=== PATIENT | female | born 1965 | race Caucasian/White ===

== ENCOUNTER → 2019-09-19 11:31 | Outpatient (BNVA) | payer MEDICAID, SELFPAY | PROVIDERS: Referring Provider Nurse Practitioner Family; Visit Provider Orthopaedic Surgery | DX: M19.012 Primary osteoarthritis, left shoulder (principal); M25.519 Pain in unspecified shoulder | CPT/HCPCS: 73030 ==

== ENCOUNTER 2019-10-25 11:12 | Outpatient (CLI) | payer MEDICAID, SELFPAY ==
--- NOTE | 2019-10-25 11:18 | MM_ITS ---
WS: [id number] BILATERAL DIGITAL SCREENING MAMMOGRAPHY WITH CAD CLINICAL INFORMATION: SCREENING HISTORY: Screening mammogram. No current complaints. COMPARISON: None. TECHNIQUE: Bilateral CC and MLO views. FINDINGS: Scattered fibroglandular densities bilaterally. No suspicious focal mass, asymmetry, calcifications, or architectural distortion. No evidence of malignancy. MM/[place] [id number] IMPRESSION: BI-RADS: 1-Negative FOLLOW UP: 1 Year Follow-up Recommend return to annual screening mammography.
== END 2019-10-25 11:13 | disposition home or self-care (01) ==
LOC: RADSHAW 11:17
PROVIDERS: PCP Nurse Practitioner Family; Visit Provider Nurse Practitioner Family
DX: Z12.31 Encounter for screening mammogram for malignant neoplasm of breast (principal)
CPT/HCPCS: 77067

== ENCOUNTER 2021-04-10 08:41 | Inpatient (IN) | payer MEDICAID, SELFPAY ==
[2021-04-10] VITALS (46 sets, daily range): BP systolic 109–156; BP diastolic 63–112; PULSE 84–111; RESP 6–42; TEMP 36.4–36.9; O2SAT 88–100; BMI 21.4
--- NOTE | 2021-04-10 08:48 | ECG_ITS ---
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1965 Requested By: Jersey Graff Order Number: [id number] Reading MD: MAUREEN MARION Measurements Intervals [place] Rate: 94 P: 60 VA: 149 QRS: -61 QRSD: 117 T: 88 QT: 388 QTc: 487 Interpretive Statements SINUS RHYTHM INCOMPLETE RIGHT BUNDLE BRANCH BLOCK [90+ ms QRS DURATION, TERMINAL R IN V1/V2, 40+ ms S IN I/aVL/V4/V5/V6] LEFT ANTERIOR FASCICULAR BLOCK [QRS AXIS <= -45, QR IN I, RS IN II] ANTEROLATERAL MYOCARDIAL INFARCTION , PROBABLY RECENT [40+ ms Q WAVE IN I/aVL/V3-V6] ACUTE ME Compared to ECG 04/10/2021 08:46:03 Sinus tachycardia no longer present Myocardial infarct finding still present Electronically Signed On 04-10-2021 19:54:56 ROOFER HELPER VINYL COATING by MAUREEN MARION [id number]
--- NOTE | 2021-04-10 08:48 | XR_ITS ---
WS: [id number] XR chest 1V portable [id number] REASON FOR EXAM: chest pain FINDINGS: Moderate tortuosity of the thoracic aorta. Heart is not significantly enlarged. Coarse reticular interstitial changes in both lower lung morley with mild accentuation of the minor f issure. Mild changes of degenerative spondylosis in the mid and lower thoracic spine. XR/XR chest 1V portable [id number] IMPRESSION: Interstitial changes in the lower lung morley. Unknown chronicity. Most compati ble with pulmonary edema.
[2021-04-10] MEDS: nitroglycerin drip 50 MG/250 ML PREMIX IV (08:53)
[2021-04-10] MEDS: sodium chloride 0.9% 1,000 ML 999 ML IV (08:55)
[2021-04-10] MEDS: clopidogrel 300 mg Tablet 600 MG PO (08:55)
[2021-04-10] MEDS: fentaNYL 50 mcg/mL INJ 2mL IVP (08:56)
[2021-04-10] MEDS: heparin 5,000 unit/mL INJ 1 mL 4000 UNIT IVP (08:56)
[2021-04-10] MEDS: ondansetron 2 mg/ML SDV 2 mL 4 MG IVP (08:56)
[2021-04-10 08:59] LABS: Basophils % 0.2 %; Hematocrit 45.5 % (37.0-47.0); Hemoglobin 14.9 g/dL (11.5-15.3); Lymphocytes # 1.4 10^3/uL (0.8-4.8); Lymphocytes % 12.1 %; Mean Corpuscular HGB Conc 32.7 g/dL (30.0-36.0); Mean Corpuscular Hemoglobin 30.9 pg (28.0-34.0); Mean Corpuscular Volume 94.4 fl (81-99); Mean Platelet Volume 10.3 fL (7.4-10.4); Monocytes # 0.6 10^3/uL (0.2-0.9); Monocytes % 5.1 %; Neutrophils # 9.53 10^3/uL (1.8-7.7); Neutrophils % 82.3 %; Nucleated Red Blood Cells % 0 %; Platelet Count 272 10^3/cmm (130-400); Red Blood Count 4.82 10^6/uL (4.1-5.3); Red Cell Distribution Width 12.4 % (12.1-15.1); White Blood Count 11.6 10^3/uL (4.0-10.0)
[2021-04-10] MEDS: nitroglycerin drip 50 MG/250 ML PREMIX 6 MG IV (09:02)
[2021-04-10] MEDS: metoprolol tartrate 1 mg/1 mL SDV 5 mL 5 MG IVP (09:02)
[2021-04-10 09:10] LABS: Alanine Aminotransferase 52 U/L (0-33); Albumin Level 4.3 g/dL (3.5-5.2); Alkaline Phosphatase 90 IU/L (35-105); Anion Gap 22.6 (5-19); Aspartate Amino Transferase 317 U/L (0-32); Blood Urea Nitrogen 18 mg/dL (6-20); Calcium 9.4 mg/dL (8.5-10.5); Carbon Dioxide 23 mmol/L (22-29); Chloride 99 mmol/L (98-107); Globulin 2.7 g/dL (1.3-4.6); Glomerular Filtration Rate 73.9 mL/min (90-130); Glucose 128 mg/dL (65-115); Osmolality Calculated 294 mOsm/kg (285-295); Potassium 4.6 mmol/L (3.5-5.1); Sodium 140 mmol/L (136-145); Total Bilirubin 0.3 mg/dL (0.15-1.2)
--- NOTE | 2021-04-10 09:14 | XACV_ITS ---
Ht: 163 cm Wt: 57 kg BSA: 1.60 m2 Gender: Female : 1965 Any Known Allergies: Morphine Exam Priority: Routine Procedure(s): Procedure Description: Diagnostic procedure Procedure Description: PCI procedure Procedure Description: Left Heart Catheterization Procedure Description: Drug Eluting Coronary Stent Procedure Description: PTCA Slim GOULD; Diagnostic Findings * Left Main has no disease. * Circumflex has no disease. * Proximal Left Anterior Descending: total occlusion, SASHA: 0 flow. * Proximal Left Anterior Descending: total occlusion, SASHA: 0 flow. * Mid Left Anterior Descending: mild 40% stenosis, SASHA: 0 flow. * Mid Right Coronary Artery: obstructive 60% stenosis, SASHA: 3 flow. * Coronary angiography shows right dominance. Interventional Findings * Proximal Left Anterior Descendin% stenosis treated with a AB MINI TREK 2.00X12 RX BALLOON, MDT NC EUPHORA RX [id number] BALLOON, MDT R RICKY 3.0X12 NADEEN, and MDT NC EUPHORA RX [id number] BALLOON. 0% residual stenosis, SASHA: 3 flow. * Proximal Left Anterior Descendin% stenosis treated with a MDT R RICKY 3.0X22 NADEEN. 0% residual stenosis, SASHA: 3 flow. * Mid Left Anterior Descendin% stenosis treated with a AB MINI TREK 2.00X12 RX BALLOON. 0% residual stenosis, SASHA: 3 flow. Conclusions 1. 55-year-old male presented with ST elevation UT with anterior wall. Thrombotically occluded proximal LAD was noted. It was treated with balloon angioplasty/ drug-eluting stent. After placement of proximal stent thrombus was noted to be traveling backward towards left main and circumflex. It was trapped with placement of overlapping stent in the ostial LAD into proximal LAD. Stent was postdilated with noncompliant balloon. Excellent angiographic result was achieved no residual thrombus or plaque was noted.. 2. There is total occlusion coronary artery disease with two vessel disease. 3. Proximal Left Anterior Descending was treated with a Balloon, Balloon, Drug Eluting Stent, and Balloon. 4. Proximal Left Anterior Descending was treated with a Drug Eluting Stent. 5. Mid Left Anterior Descending was treated with a Balloon. Recommendations * 1-Return to inpatient for close monitoring and routine cath care2-Risk factor modification for secondary prevention3-Statin and aspirin 81 mg life--long, if tolerated4-Continue DAPT for one year at least5-Continue optimal medical management6-Follow up with Dr. Smalls in four weeks and your primary care in 10 days. Interventional RX Recommendation: PCI w/o planned CABG Diagnostic RX Recommendation: PCI w/o planned CABG Clinical Evaluation EBL: 5mL-10mL Procedural Details Pre-Procedure Time Out. Identified patient by full name and date of as verbalized by the patient/guarantor. Does the consent match the physician's order: Yes. Accurate & Complete Informed Consent: N/A Emergent. Inpatient/Outpatient History & Physical on Chart: N/A Emergent. If H&P is completed, is and addenduem needed: N/A Emergent; If yes, is the addendum complete: N/A Emergent. Visualize and Verify Site with Patient/Guarantor: N/A. Relevant Radiology Images available: N/A Emergent. Pre-op teaching completed and patient verbalized understanding. The risks, benefits, and alternatives of sedation and/or procedure were discussed by physician. The patient agrees to continue. Procedure started. Correct patient, site and procedure confirmed by cath team. PERRLA. Strong, equal hand dumper bilaterally. Lungs clear x 5 lobes. IV Site on Arrival: 18 gauge in the right forearm. IV Site on Arrival: 20 gauge in the left anticubital. Oxygen started at 2liters/min via nasal canula. bilateral groins was prepped with chloroprep then draped in the usual sterile fashion. right radial was prepped with chloroprep then draped in the usual sterile fashion. Baseline sample Acquired. HR: 80 BPM. Physician notified. Physician arrived. Physician scrubbed in. Immediate Pre-Procedure Time Out. Correct Patient: Yes; Correct Procedure: Yes; Correct Site: Yes; Correct Patient Position: Yes; Correct Supplies: Yes; Dried Flammable Prep: Yes; Blood Products Available: N/A;. Lidocaine 1% infiltrated to the right radial. Pre Procedural Pulses: bilateral radial was 1+. Pre Procedural Pulses: bilateral dorsalis pedis was Doppled. Pre Procedural Pulses: bilateral posterior tibial was Doppled. Admit Source: Emergency department. Unable to obtain radial access. MD attempting to gain access in the Femoral artery. Arterial access obtained with micropuncture set. A 5 indonesian JL4 catheter in over wire. TR band placed. Hemostasis obtained. Multiple views taken of left coronary artery. Catheter out. 6 indonesian XB 3 guide catheter was inserted over the wire. Runthrough guidewire was advanced through the guide catheter to lesion in the prox LAD. Inflation number : 1 A AB MINI TREK 2.00X12 RX BALLOON was prepped and advanced across the Prox LAD , then inflated to 12 ALLISON for 0:09 seconds. Inflation number: 2 The AB MINI TREK 2.00X12 RX BALLOON was reinflated across the Prox LAD, to 20 ALLISON for 0:16 seconds. Inflation number: 3 The AB MINI TREK 2.00X12 RX BALLOON was reinflated across the Prox LAD, to 20 ALLISON for 0:11 seconds. Inflation number: 4 The AB MINI TREK 2.00X12 RX BALLOON was reinflated across the Prox LAD, to 20 ALLISON for 0:18 seconds. Inflation number: 1 The AB MINI TREK 2.00X12 RX BALLOON was reinflated across the Mid LAD, to 6 ALLISON for 0:14 seconds. Inflation number: 2 The AB MINI TREK 2.00X12 RX BALLOON was reinflated across the Mid LAD, to 6 ALLISON for 0:10 seconds. Inflation number: 3 The AB MINI TREK 2.00X12 RX BALLOON was reinflated across the Mid LAD, to 6 ALLISON for 0:09 seconds. Inflation number: 4 The AB MINI TREK 2.00X12 RX BALLOON was reinflated across the Mid LAD, to 12 ALLISON for 0:17 seconds. Inflation number: 5 The AB MINI TREK 2.00X12 RX BALLOON was reinflated across the Mid LAD, to 8 ALLISON for 0:13 seconds. Inflation number: 6 The AB MINI TREK 2.00X12 RX BALLOON was reinflated across the Mid LAD, to 4 ALLISON for 0:08 seconds. Inflation number: 7 The AB MINI TREK 2.00X12 RX BALLOON was reinflated across the Mid LAD, to 4 ALLISON for 0:07 seconds. Inflation number: 8 The AB MINI TREK 2.00X12 RX BALLOON was reinflated across the Mid LAD, to 6 ALLISON for 0:10 seconds. Inflation number: 9 The AB MINI TREK 2.00X12 RX BALLOON was reinflated across the Mid LAD, to 12 ALLISON for 0:19 seconds. Balloon out. Inflation Number : 1 A MDT R RICKY 3.0X22 NADEEN -Lot Number# [id number] exp date: 08-21-2023 was prepped and advanced across the Prox LAD1. The stent was deployed at 12 ALLISON for 0:24 seconds. family updated by Negrita Daniel RN. Inflation number : 5 A MDT NC EUPHORA RX 3.90V34BU BALLOON was prepped and advanced across the Prox LAD , then inflated to 12 ALLISON for 0:30 seconds. Inflation number: 6 The MDT NC EUPHORA RX 3.60D25HC BALLOON was reinflated across the Prox LAD, to 16 ALLISON for 0:15 seconds. Balloon out. IVUS catheter inserted. measurements obtained. IVUS catheter out. Inflation Number : 7 A MDT R RICKY 3.0X12 NADEEN -Lot Number# [id number] exp date: 03-17-2023 was prepped and advanced across the Prox LAD. The stent was deployed at 16 ALLISON for 0:20 seconds. Stent balloon out over wire. Balloon out. Wire out. ACT drawn. Results 188 seconds. Therapeutic limits - pre-heparin administration 90-150 seconds and monitoring heparin during a vascular procedure >250 seconds. reseating the guide. guide out. 6 indonesian JL 4 guide catheter was inserted over the wire. Runthrough guidewire was advanced through the guide catheter to lesion in the prox LAD. Inflation number : 8 A MDT NC EUPHORA RX 3.05X78NQ BALLOON was prepped and advanced across the Prox LAD , then inflated to 12 ALLISON for 0:12 seconds. Results checked. Balloon out. Wire out. 6 indonesian JR 4 guide catheter was inserted over the wire. Multiple views taken of right coronary artery. catheter out. Wire out. Sheath(s) sutured into position with 2-0 silk and sterile 4x4's and Op-site applied over the site. No oozing or signs and symptoms of hematoma noted. Arterial sheath flushed and connected to tranducer and pressure bag with heparinized saline. Post Procedure: Pulses reassessed and unchanged. PERRLA. Strong, equal hand dumper bilaterally. No VTE prophylaxis required. Medication's Wasted: Other = fentanyl 100 mg. Medication's Wasted: Other = versed 0.5 mg. Medication's Wasted: Heparin = 3000 units. Total IV fluids: 75 mL. Contrast type used: Omnipaque 300 mgI/mL, 500 mL bottle. Contrast Material : Omnipaque 357 ml. [facility] Clinical Fraility Score: 3: Managing Well. Refrigeration Person Indications: ACS <= 24 hours. Chest Pain Symptom Assessment: Typical Angina Symptoms. Cardiovascular Instability: No,. Post-op diagnosis: stent to ost LAD. PCI Indication: complete occluded ost. LAD. Complications: none. Estimated blood loss: 5mL-10mL. Responsiveness - Normal response to verbal stimuli; alert and oriented, PERRLA. Airway - Unaffected, no intervention required; spontaneous ventilation. Circulation: W/N/L, pulses unchanged. Nausea/Vomiting: No. Procedure completed. Patient transferred by bed to 1st floor. A Suture was successful obtaining hemostatsis at the Right Femoral artery insertion site. Vital chart was stopped. Access Site Site: Right Femoral artery Sheath Size: 6 Fr Hemostasis Method: Suture Hemostasis Success: Successful Procedure Medications Start: 9:19 AM Stop: 9:19 AM Medication: Versed Amount: 1 mg Route: I.V. Start: 9:31 AM Stop: 9:31 AM Medication: Heparin Amount: 3000 units Route: I.V. Start: 9:33 AM Stop: 9:33 AM Medication: Aggrastat 12.5 mg/250 mL Amount: 29 ml Route: I.V. bolus Start: 9:46 AM Stop: 9:46 AM Medication: Nitrogylcerin Amount: 20 mcg/min Route: I.V. drip Start: 9:34 AM Stop: 9:34 AM Medication: Aggrastat 12.5 mg/250 mL Amount: 10.4 ml/hr Route: I.V. drip Start: 10:28 AM Stop: 10:28 AM Medication: Heparin Amount: 3000 units Route: I.V. I, the attending physician, have reviewed and verified all procedure medications. Yes, all medications given per verbal order Report Signatures Finalized by Perlita Smalls MD on 04/15/2021 07:33 PM
[2021-04-10 09:15] LABS: Troponin(5th) Baseline 3473 ng/L (0-10)
--- NOTE | 2021-04-10 09:17 | ED_ITS ---
HPI - Chest Pain General: Chief Complaint: Chest Pain Stated Complaint: CHEST PAIN, POSSIBLE STEMI Time Seen by Provider: 04/10/21 08:48 History of Present Illness: HPI narrative: 55-year-old female presents emergency room complaining chest pain started last night. Began around midnight she had chest pain throughout the night this morning she reports chest pain at 7-8 out of 10 on arrival here she is complaining of significant pain difficult time getting a history from her because of the pain is distracting for her. She is on oxygen she is received 324 of aspirin. STEMI was called in the field. She denies any previous history of coronary artery disease or stress testing. She is a smoker. She denies any recent history of cough fever sweats chills nausea vomiting or diarrhea. MD complaint: chest pain Onset (ago): hour(s) Timing of current episode: constant Prior episodes: No Onset: during rest Pain location: substernal Pain radiation: none Severity: severe Pain scale (0-10): 8 Relieving factors: nitroglycerin and medication-other (Fentanyl) Associated symptoms: Reports dyspnea and sense of impending doom; Deny abdominal pain, diaphoresis, fever(s), leg edema, nausea, palpitations, syncope or vomiting Treatment prior to arrival: aspirin Review of Systems Const: Denies: fever(s) or diaphoresis ENMT: Denies: throat pain, ear or mastoid pain, nasal discharge or nasal congestion Card: Denies: palpitations or syncope Resp: Reports: dyspnea GI: Denies: abdominal pain, nausea or vomiting : Denies: flank pain, difficulty voiding, dysuria, urinary frequency or urinary urgency Skin/Breast: Denies: rash or pruritus [facility] ED PFSH: Medical History (Updated 04/10/21 @ 09:24 by Jersey Lloyd DO) Ovarian cyst Surgical History (Updated 04/10/21 @ 09:20 by Jersey Lloyd DO) H/O tubal ligation H/O: hysterectomy History of appendectomy History of laparotomy Social History (Updated 09/19/19 @ 11:11 by Cedric Joseph LPN) Smoking and tobacco status: current every day smoker Alcohol intake: never Physical Exam Const: COMMON NORMALS: no acute distress GENERAL APPEARANCE: cooperative and comfortable ORIENTATION/CONSCIOUSNESS: Yes awake, Yes oriented to person, Yes oriented to place and Yes oriented to time HENMT: COMMON NORMALS: normocephalic, atraumatic and hearing grossly normal bilaterally HEAD & SCALP: normocephalic and atraumatic Neck/C-Spine: COMMON NORMALS: no JVD Resp: COMMON NORMALS: normal respiratory effort, No retractions, No use of accessory muscles and clear to auscultation bilaterally AUSCULTATION: clear to auscultation bilaterally Cardio: COMMON NORMALS: no JVD, regular rate, regular rhythm and No murmurs present (Cardio) RATE: regular rate RHYTHM: regular rhythm GI: COMMON NORMALS: Soft to palpation and No hepatosplenomegaly present AUSCULTATION: Yes normoactive bowel sounds PALPATION: Yes Soft to palpation, No Tenderness to palpation present (GI), No Guarding due to palpation present (GI) and Yes No hepatosplenomegaly present Extremity: COMMON NORMALS: normal to inspection, capillary refill normal, no clubbing, cyanosis or edema, no calf tenderness and no pedal edema Neuro: SENSORIUM/ORIENTATION: Yes oriented to person, Yes oriented to place and Yes oriented to time Skin: COMMON NORMALS: no rashes or lesions noted GENERAL SKIN EXAM: no rashes or lesions noted Course Vital Signs: Vital signs: Vital Signs Temperature 97.6 F 04/10/21 08:42 Pulse Rate 84 04/10/21 09:04 Respiratory Rate 24 H 04/10/21 09:04 Blood Pressure 156/112 04/10/21 09:04 Pulse Oximetry 98 04/10/21 09:04 MDM - Chest Pain MDM Narrative: Medical decision making narrative: STEMI alert was activated prior to arrival. On arrival here repeat EKG there is some ST elevation in V1 and toHowever there is a right bundle branch block. Patient treated as if she would likely to be a STEMI repeat EKG shows persistent ST elevation in conjunction of bundle branch block but does not really meet full scar boluses criteria. We did forwarded to Dr. Galicia immediately after he was done he also was unsure and advised that he would present to the emergency room in the interim patient was treated as if she was a STEMI she is given heparin Plavix started on nitro given 5 Lopressor 50 of fentanyl and 4 of Zofran. She did have some improvement with her chest pain. Nitro was titrated up and she reported chest pain decreased down to 3 or 4 initial labs were done Dr. Galicia came to the emergency room and seen the patient and ultimately decided to go ahead and take her to the Financial Quantitative Analyst. After they left the Financial Quantitative Analyst first laboratory work started coming back and her first troponin is 3473. Chest x-ray did show what appears to be some pulmonary fibrosis vs pulmonary edema per radiology read. This information passed on Dr. Smalls. Lab Data: Labs: Lab Results 04/10/21 04/10/21 04/10/21 08:42 08:42 08:42 WBC 11.6 10^3/uL H 10 ^3/uL (4.0-10.0) RBC 4.82 10^6/uL 10^6 /uL (4.1-5.3) Hgb 14.9 g/dL g/dL (11.5-15.3) Hct 45.5 % % (37.0-47.0) MCV 94.4 fl fl (81-99) MCH 30.9 pg pg (28.0-34.0) MCHC 32.7 g/dL g/dL (30.0-36.0) RDW 12.4 % % (12.1-15.1) Plt Count 272 10^3/cmm 10^3 /cmm (130-400) MPV 10.3 fL fL (7.4-10.4) Neut % (Auto) 82.3 % % Lymph % (Auto) 12.1 % % Faulk % (Auto) 5.1 % % Eos % (Auto) 0.0 % % Baso % (Auto) 0.2 % % Neut # (Auto) 9.53 10^3/uL H 10 ^3/uL (1.8-7.7) Lymph # (Auto) 1.4 10^3/uL 10^3/ uL (0.8-4.8) Faulk # (Auto) 0.6 10^3/uL 10^3/ uL (0.2-0.9) Eos # (Auto) 0.0 10^3/uL 10^3/ uL (0.0-0.8) Baso # (Auto) 0.0 10^3/uL 10^3/ uL (0.0-0.1) Nucleated RBC % (a uto) 0 % % Nucleated RBCs # 0.0 /100WBC /100W BC Sodium 140 mmol/L mmol/L (136-145) Potassium 4.6 mmol/L mmol/L (3.5-5.1) Chloride 99 mmol/L mmol/L (98-107) Carbon Dioxide 23 mmol/L mmol/L (22-29) Anion Gap 22.6 H (5-19) BUN 18 mg/dL mg/dL (6-20) Creatinine 0.8 mg/dL mg/dL (0.5-0.9) GFR Calculation 73.9 mL/min L mL/ min (90-130) Glucose 128 mg/dL H mg/dL (65-115) Calculated Osmolal ity 294 mOsm/kg mOsm/ kg (285-295) Calcium 9.4 mg/dL mg/dL (8.5-10.5) Total Bilirubin 0.3 mg/dL mg/dL (0.15-1.2) AST 317 U/L H U/L (0-32) ALT 52 U/L H U/L (0-33) Alkaline Phosphata se 90 IU/L IU/L (35-105) Troponin T Baselin e 3473 ng/L H* ng/L (0-10) Total Protein 7.0 g/dL g/dL (6.6-8.7) Albumin 4.3 g/dL g/dL (3.5-5.2) Globulin 2.7 g/dL g/dL (1.3-4.6) Discharge Plan Discharge Patient Disposition: Admitted As Inpatient Clinical Impression: ST elevation myocardial infarction (STEMI), CHF (congestive heart failure) Condition: Stable Coding Level of Care Code ED Poacher Operator for Liseth Fung
[2021-04-10 09:29] LABS: CKMB > 600.0 ng/mL (0-5.34); CKMB Relative Index 14.3 % (0.0-10.4); Creatine Phosphokinase 4194 U/L (26-192)
--- NOTE | 2021-04-10 10:48 | ECG_ITS ---
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1965 Requested By: Jersey Graff Order Number: [id number] Reading MD: MAUREEN MARION Measurements Intervals [place] Rate: 100 P: 66 MS: 152 QRS: -57 QRSD: 114 T: 91 QT: 369 QTc: 476 Interpretive Statements SINUS TACHYCARDIA INCOMPLETE RIGHT BUNDLE BRANCH BLOCK [90+ ms QRS DURATION, TERMINAL R IN V1/V2, 40+ ms S IN I/aVL/V4/V5/V6] LEFT ANTERIOR FASCICULAR BLOCK [QRS AXIS <= -45, QR IN I, RS IN II] ANTEROLATERAL MYOCARDIAL INFARCTION , PROBABLY RECENT [40+ ms Q WAVE IN I/aVL/V3-V6] ACUTE SC INTERPRETATION BASED ON A DEFAULT AGE OF 40 YEARS No previous ECG available for comparison Electronically Signed On 04-10-2021 19:56:17 APPOINTMENT CLERK by MAUREEN MARION [email or web address]
--- NOTE | 2021-04-10 10:48 | PM.HP ---
Providers/Chief Complaint Admitting Physician: Perlita Smalls MD Primary Care Provider: Perlita Smalls MD Chief Complaint: CHEST PAIN, POSSIBLE STEMI History of Present Illness Melissa Benoit is a 55 year old female presented with chest pain off 3 to 4-hour duration EKG is consistent with old anterior wall myocardial infarction and mild ST elevation in anterior leads no prior EKG to compare. ST elevation [place] pager was alerted I saw patient in the ER. She continues to have chest pain therefore we took her to the Production Welding Supervisor. She was noted to have proximal LAD occlusion. It was treated with balloon angioplasty after somewhat difficulty flow was restored, throughout the course of the LAD it appeared to have few tandem lesions for which we used balloon angioplasty as it appeared to me atretic however once we restore the flow LAD perked up more as a moderate size and long vessel. Proximal calcified LAD lesion was treated with balloon angioplasty followed by drug-eluting stent postdilated with noncompliant balloon. IVUS was performed which showed good stent apposition. In one of the eccentric view there appeared to be hazy lesion which was present before mostly in [place] caudal, there was concern about plaque shift versus ruptured plaque. IVUS was performed. This lesion was treated with another drug-eluting stent overlapping the proximal LAD stent. The stent was postdilated with noncompliant 3 to 5 x 8 mm balloon. Excellent angiographic result was achieved no compromise of circumflex was noted. Left circumflex did not show any significant stenosis rest of the left main does not have any problem. RCA has moderate 60% mid lesion which was thought not to be significant. RCA is a dominant vessel. Since we do not have good radial pulse and there was scar in the wrist we opted for groin approach. Patient tolerated procedure well she is now being shifted to cardiac stepdown unit. Review of Systems Const: Denies: fever(s) or diaphoresis ENMT: Denies: throat pain, ear or mastoid pain, nasal discharge or nasal congestion Card: Denies: palpitations or syncope Resp: Reports: dyspnea GI: Denies: abdominal pain, nausea or vomiting : Denies: flank pain, difficulty voiding, dysuria, urinary frequency or urinary urgency Skin/Breast: Denies: rash or pruritus Medications/Allergies Home Medications Medication Instructions Recorded Confirmed Last Taken Type Unable to Assess 09/19/19 09/19/19 Unknown History Allergies Allergy/AdvReac Type Severity Reaction Status Date / Time No Known Allergies Allergy Verified 09/19/19 11:10 PFSH Acute PFSH: Medical History (Updated 04/10/21 @ 11:04 by Perlita Smalls MD) Ovarian cyst Surgical History (Updated 04/10/21 @ 09:20 by Jersey Lloyd DO) H/O tubal ligation H/O: hysterectomy History of appendectomy History of laparotomy Social History (Updated 09/19/19 @ 11:11 by Cedric Joseph LPN) Smoking and tobacco status: current every day smoker Alcohol intake: never Vitals/I&O/Wt Last Vital Signs Temp 97.6 F 04/10/21 08:42 Pulse 84 04/10/21 09:24 Resp 24 H 04/10/21 09:24 BP 156/112 04/10/21 09:24 Pulse Ox 98 04/10/21 09:24 04/09/21 04/10/21 04/10/21 22:59 06:59 14:59 Intake Total 1.2 / 1.2 Balance 1.2 / 1.2 Weight last 48 hrs Weight 125 lb Physical Exam Narrative: EXAM NARRATIVE: GENERAL: Patient is alert, awake and oriented x3. NECK: No jugular vein distension. HEENT: No cyanosis. No icterus. No pallor. HEART: Regular S1 and S2. No murmur, rub or gallop. LUNGS: Mild expiratory auscultate bilaterally. ABDOMEN: Soft, nontender and nondistended. Positive bowel sounds. No guarding, rebound or tenderness. CENTRAL NERVOUS SYSTEM: Grossly nonfocal. EXTREMITIES: Lower extremities with edema bilaterally. Data : 04/10/21 08:42 04/10/21 08:42 A&P Assessment and plan (1) ST elevation myocardial infarction (STEMI): Proximal LAD was a culprit vessel appeared to be completely occluded treated with 2 overlapping drug-eluting stent from ostial to proximal segment for eccentric and complete occlusion plaque as defined above. Continue aspirin statin beta-jacinto, will obtain echocardiogram to assess LV function further plan be advised as per progress of the patient. Status: Acute Qualifiers: Involved coronary artery: LAD coronary artery Qualified Code(s): I21.02 - ST elevation (STEMI) myocardial infarction involving left anterior descending coronary artery (2) CHF (congestive heart failure): Will diurese her infiltrates in the lower part of the lung denies any cough fever or Covid-like symptoms. Status: Acute Qualifiers: Heart failure type: systolic Heart failure chronicity: acute on chronic Qualified Code(s): I50.23 - Acute on chronic systolic (congestive) heart failure (3) Tobacco abuse: Advised quitting smoking. Status: Acute Attestations Medical Necessity Statement*: I am expecting her stay to cross more than 2-minute Coding Level of Care Code New Pt Acute Inside Trucker for g Fwd Patient Type New History Comprehensive Exam Comprehensive Medical Decision Making Moderate Complexity Diagnoses ST elevation myocardial infarction (STEMI) I21.02 Involved coronary artery: LAD coronary artery CHF (congestive heart failure) I50.23 Heart failure type: systolic Heart failure chronicity: acute on chronic Tobacco abuse Z72.0
[2021-04-10 13:11] LABS: Troponin 5 2HR Delta 51672 ABS# (0-10)
[2021-04-10 14:34] LABS: Partial Thromboplastin Time 139.4 SECONDS (23.9-36.7)
--- NOTE | 2021-04-10 14:48 | ECG_ITS ---
[facility] Test Date: 2021-04-10 Pat Name: Melissa Benoit Department: Room: 101 Gender: Female Legal Collector: : 1965 Requested By: Jersey Graff Order Number: [id number] Reading MD: MAUREEN MARION Measurements Intervals [place] Rate: 90 P: 55 CA: 143 QRS: -59 QRSD: 112 T: 90 QT: 358 QTc: 440 Interpretive Statements SINUS RHYTHM INCOMPLETE RIGHT BUNDLE BRANCH BLOCK [90+ ms QRS DURATION, TERMINAL R IN V1/V2, 40+ ms S IN I/aVL/V4/V5/V6] LEFT ANTERIOR FASCICULAR BLOCK [QRS AXIS <= -45, QR IN I, RS IN II] ANTEROLATERAL MYOCARDIAL INFARCTION , PROBABLY RECENT [40+ ms Q WAVE IN I/aVL/V3-V6] ACUTE TX Compared to ECG 04/10/2021 11:24:19 No significant changes Electronically Signed On 04-10-2021 19:56:03 BACK SEAM STITCHER by MAUREEN MARION [id number]
[2021-04-10 16:54] LABS: Troponin 5 6HR 32498 ng/L (0-10); Troponin 5 6HR Delta 29025 ng/L (0-12)
[2021-04-10 17:34] LABS: Partial Thromboplastin Time 31.2 SECONDS (23.9-36.7)
--- NOTE | 2021-04-10 19:15 | PC.NURSE ---
Shift Note Frequent safety and comfort rounds continue. Orders and/or nursing care completed as indicated. Patient monitored for response to intervention and treatment(s). Education provided includes Chest pain stop light post heart attack care smoking cessation. Patient and/or pharmacy services representative verbalized understanding. Will continue to monitor.
--- NOTE | 2021-04-10 19:36 | PC.NURSE ---
Received report from MOSHE Hardin. Patient resting in bed with eyes closed. Opens eyes spontaneously with verbal stimuli. Patient is s/p [facility] with PCIx2. Patient c/o mild chest pain upon inspiration. Patient does report some improvement with this throughout the day. Dr Smalls is aware. Right groin access site with dressing in place. Dressing remains c,d,i with no s/s of bleeding or hematoma formation observed. Pulses to lower extremities remain palpable. No other distresses observed. Will continue to monitor.
[2021-04-10] MEDS: atorvastatin 40 mg Tablet PO (19:59)
[2021-04-11] VITALS (10 sets, daily range): BP systolic 92–120; BP diastolic 61–84; PULSE 96–108; RESP 23–28; TEMP 36.8–37.6; O2SAT 88–97
--- NOTE | 2021-04-11 | PC.NURSE ---
Assisted patient up to bathroom. Dressing to right groin remain c,d,i with no s/s of bleeding or hematoma formation observed. Patient reports chest pain improving. Denies other needs. No distress observed.
[2021-04-11 03:39] LABS: Basophils % 0.2 %; Hematocrit 40.7 % (37.0-47.0); Hemoglobin 13.4 g/dL (11.5-15.3); Lymphocytes # 1.5 10^3/uL (0.8-4.8); Lymphocytes % 14.1 %; Mean Corpuscular HGB Conc 32.9 g/dL (30.0-36.0); Mean Corpuscular Hemoglobin 30.8 pg (28.0-34.0); Mean Corpuscular Volume 93.6 fl (81-99); Mean Platelet Volume 10.5 fL (7.4-10.4); Monocytes # 0.7 10^3/uL (0.2-0.9); Monocytes % 6.4 %; Neutrophils # 8.55 10^3/uL (1.8-7.7); Nucleated Red Blood Cells % 0 %; Platelet Count 216 10^3/cmm (130-400); Red Blood Count 4.35 10^6/uL (4.1-5.3); Red Cell Distribution Width 12.8 % (12.1-15.1); White Blood Count 10.8 10^3/uL (4.0-10.0)
[2021-04-11 04:04] LABS: Anion Gap 18.1 (5-19); Blood Urea Nitrogen 21 mg/dL (6-20); Calcium 8.3 mg/dL (8.5-10.5); Carbon Dioxide 20 mmol/L (22-29); Chloride 100 mmol/L (98-107); Glucose 111 mg/dL (65-115); Osmolality Calculated 282 mOsm/kg (285-295); Potassium 4.1 mmol/L (3.5-5.1); Sodium 134 mmol/L (136-145)
--- NOTE | 2021-04-11 05:35 | PC.NURSE ---
Shift Note Frequent safety and comfort rounds continue. Orders and/or nursing care completed as indicated. Patient monitored for response to intervention and treatment(s). Education provided includes Lipitor and plavix. Patient verbalized complete understanding. Dressing to right groin remain c,d,i with no s/s of bleeding or hematoma formation. Patient denies pain or needs. No distress observed. Will continue to monitor.
[2021-04-11] MEDS: HYDROcodone-acetaminophen 5-325 mg Tablet 1 TAB PO (08:30)
[2021-04-11] MEDS: clopidogrel 75 mg Tablet PO (08:31)
[2021-04-11] MEDS: aspirin 81 mg EC Tablet PO (08:31)
--- NOTE | 2021-04-11 09:29 | PC.PHAR ---
pt states she takes no rx or otc medications
--- NOTE | 2021-04-11 12:40 | PC.CHAP ---
Pastoral Care Encounter/Spiritual Assessment Type of Contact [] Declined foster care worker visit [] Patient/Family/Request visit [] Outpatient visit [xx] Follow-up visit [] Physician referral [] Code/Alert [xx] Routine visit [] Staff referral [] Actively dying [] Patient sleeping [] Family support [] [] Out of room [] Palliative care [] [] Receiving care in room [] Pre-surgical visit [] Trauma [] Long length of stay [] ICU visit [] Other: Relational/Emotional Strength [xx] Patient feels connected with others/family/visitors/staff [] Distress [] Loneliness/isolation [] Abandonment Spirituality of Patient [xx] Person of Binta [] Attends Mandaen of their Binta [xx] Believes in Prayer [] Reads Bible or Synagogue materials [] There are Spiritual issues to be addressed [place] Worker Interventions [xx] Prayer [xx] Active listening [xx] Non-anxious presence [] Spiritual/emotional support [] Crisis/trauma care [] Spiritual counseling [] Bereavement support [] Provided bereavement packet [] Provided Bible/devotional materials [] Provided toy/stuffed animal, coloring book to patient or family member [] Provided Communion [] Anointing/[place] [] Salvation [xx] Completed spiritual assessment [] Other: Impact on Illness or Injury [] Angry [] Fearful [] Anxious [] Often cries [] Exhaustion [] Unable to work [] Unable to attend temple [] Unable to walk/stand [] Unable to read [] Unable to drive [] Unable to eat/drink [] Unable to sleep [] Unable to be with family [] Patient intubated [] Other: Summary Patients feeling better. He has cancer but knows God heals and there are new treatments every day/ He has a positive attitude. Time spent with patient 5 minutes
--- NOTE | 2021-04-11 12:57 | PC.CHAP ---
Pastoral Care Encounter/Spiritual Assessment Type of Contact [] Declined spray gunner visit [] Patient/Family/Request visit [] Outpatient visit [] Follow-up visit [] Physician referral [] Code/Alert [] Routine visit [] Staff referral [] Actively dying [xx] Patient sleeping [] Family support [] [] Out of room [] Palliative care [] [] Receiving care in room [] Pre-surgical visit [] Trauma [] Long length of stay [] ICU visit [] Other: Relational/Emotional Strength [] Patient feels connected with others/family/visitors/staff [] Distress [] Loneliness/isolation [] Abandonment Spirituality of Patient [] Person of Binta [] Attends Restorationist of their Binta [] Believes in Prayer [] Reads Bible or Taoism materials [] There are Spiritual issues to be addressed Executor Of Estate Interventions [] Prayer [] Active listening [] Non-anxious presence [] Spiritual/emotional support [] Crisis/trauma care [] Spiritual counseling [] Bereavement support [] Provided bereavement packet [] Provided Bible/devotional materials [] Provided toy/stuffed animal, coloring book to patient or family member [] Provided Communion [] Anointing/[place] [] Salvation [] Completed spiritual assessment [] Other: Impact on Illness or Injury [] Angry [] Fearful [] Anxious [] Often cries [] Exhaustion [] Unable to work [] Unable to attend buddhist [] Unable to walk/stand [] Unable to read [] Unable to drive [] Unable to eat/drink [] Unable to sleep [] Unable to be with family [] Patient intubated [] Other: Summary Follow up Time spent with patient
--- NOTE | 2021-04-11 18:59 | P.PN_ITS ---
Subjective Subjective: Interval history: Denies chest pain feels tired blood pressure is mildly on the lower side Medications: Reviewed: Yes Vitals/I&O/Wt Last Vital Signs Temp 98.7 F 04/11/21 13:06 Pulse 98 04/11/21 17:43 Resp 25 H 04/11/21 17:43 BP 96/61 04/11/21 17:43 Pulse Ox 94 04/11/21 16:45 04/11/21 04/11/21 04/11/21 06:59 14:59 22:59 Intake Total 472 / 472 Balance 472 / 472 Weight last 48 hrs Weight 125 lb Physical Exam Narrative: EXAM NARRATIVE: GENERAL: Patient is awake x3 oriented but overall feeling NECK: No jugular vein distension. HEENT: No cyanosis. No icterus. No pallor. HEART: Regular S1 and S2. No murmur, rub or gallop. LUNGS: Mild expiratory auscultate bilaterally. ABDOMEN: Soft, nontender and nondistended. Positive bowel sounds. No guarding, rebound or tenderness. CENTRAL NERVOUS SYSTEM: Grossly nonfocal. EXTREMITIES: Lower extremities with edema bilaterally. Data : 04/11/21 03:24 04/11/21 03:24 A&P Assessment and plan (1) ST elevation myocardial infarction (STEMI): Proximal LAD was a culprit vessel appeared to be completely occluded treated with 2 overlapping drug-eluting stent from ostial to proximal segment for eccentric and complete occlusion plaque as defined above. Continue aspirin statin beta-jacinto, will obtain echocardiogram to assess LV function further plan be advised as per progress of the patient. Add beta-jacinto with low-dose. Continue to monitor and optimize medicine Status: Acute Qualifiers: Involved coronary artery: LAD coronary artery Qualified Code(s): I21.02 - ST elevation (STEMI) myocardial infarction involving left anterior descending coronary artery (2) CHF (congestive heart failure): Appear to be compensated. Continue current regimen Status: Acute Qualifiers: Heart failure chronicity: acute on chronic Heart failure type: systolic Qualified Code(s): I50.23 - Acute on chronic systolic (congestive) heart failure (3) Tobacco abuse: Advised quitting smoking. Status: Acute Attestations Medical Necessity Statement*: Patient require continuation hospitalization for further better plan of care post STEMI Coding Level of Care Code Established Pt Acute Director Data Management for [employer] Fwd Patient Type Established History Detailed Exam Detailed Medical Decision Making Moderate Complexity Diagnoses ST elevation myocardial infarction (STEMI) I21.02 Involved coronary artery: LAD coronary artery CHF (congestive heart failure) I50.23 Heart failure chronicity: acute on chronic Heart failure type: systolic Tobacco abuse Z72.0
--- NOTE | 2021-04-11 20:36 | PC.NURSE ---
Shift Note Frequent safety and comfort rounds continue. Orders and/or nursing care completed as indicated. Patient monitored for response to intervention and treatment(s). 0800 am- Pt reports of chest pain during inspiration located on left clavicle. pt rated at 4/10. Pt stated she is tired and sleepy. EKG taken. Dr. Smalls notified and aware of pt complain. Hydrocodone given prn. 1045- Pt is up and going to the bathroom. at bedside. She stated she does not have any chest pain during activity. Dr. Smalls notified. Education provided includes post heart attack, plavix, aspirin, expected s/s after cardiac cath. Patient and/or automotive leasing sales representative verbalizes understanding. Will continue to monitor.
[2021-04-11] MEDS: ketorolac 30 mg/mL INJ IVP (21:57)
[2021-04-11] MEDS: atorvastatin 40 mg Tablet PO (21:58)
[2021-04-12] VITALS: BP 104/68; PULSE 87; RESP 18; O2SAT 97
[2021-04-12 03:39] VITALS: BP 111/86; PULSE 97; RESP 20; TEMP 36.6; O2SAT 93
[2021-04-12 03:55] VITALS: PULSE 93
[2021-04-12 08:00] VITALS: BP 114/78; PULSE 106; RESP 24; TEMP 36.7; O2SAT 99
--- NOTE | 2021-04-12 08:54 | USCV_ITS ---
Melissa Benoit Age: 55 Gender: F : 1965 Exam Date: 04/12/2021 06:47 Ordering Phys: Perlita Smalls MD ([email or web address]) Technologist: WILBER Exam Location: [facility] [place] Indication: STEMI BP: 111 / 86 HR: 96 Rhythm: Sinus Technical Quality: Adequate MEASUREMENTS (Male / Female) Normal Values 2D ECHO LV Diastolic Diameter PLAX 3.8 cm 4.2 - 5.9 / 3.9 - 5.3 cm LV Systolic Diameter PLAX 2.9 cm LV Chamber Size 4.3 cm IVS Diastolic Thickness 1.5 cm 0.6 - 1.0 / 0.6 - 0.9 cm IVS Systolic Thickness 1.5 cm LVPW Diastolic Thickness 1.1 cm 0.6 - 1.0 / 0.6 - 0.9 cm LVPW Systolic Thickness 1.4 cm RV Chamber Size 1.9 cm LVOT Diameter 1.8 cm LV Ejection Fraction MOD 2C 43.4 % LV Ejection Fraction 2C AL 43.5 % LA Diameter 2.4 cm LA Width 2.5 cm LA Height 3.2 cm RA Width 3.0 cm RA Height 2.8 cm Aorta at Sinotubular Diameter 2.5 cm M-MODE LV Diastolic Diameter MM 4.5 cm 4.2 - 5.9 / 3.9 - 5.3 cm LV Systolic Diameter MM 3.4 cm LV Ejection Fraction MM Teich 47.3 % IVS Diastolic Thickness MM 1.1 cm 0.6 - 1.0 / 0.6 - 0.9 cm IVS Systolic Thickness MM 0.8 cm LVPW Diastolic Thickness MM 1.2 cm 0.6 - 1.0 / 0.6 - 0.9 cm LVPW Systolic Thickness MM 1.4 cm RV Diastolic Diameter MM 0.6 cm Aortic Annulus Diameter 3.4 cm LA Ao Ratio MM 0.9 MV E Point Septal Separation 0.9 cm DOPPLER AV Peak Velocity 80.0 cm/s LVOT Peak Velocity 73.0 cm/s AV Area Cont Eq vti 2.5 cm squared AV Area Cont Eq pk 2.3 cm squared MV Area PHT 5.4 cm squared Mitral E to A Ratio 0.7 MV E' Velocity 23.5 cm/s Mitral E to MV E' Ratio 8.1 Mitral E to LV E' Lateral Ratio 7.1 Mitral E to LV E' Septal Ratio 9.6 TV Peak E Velocity 54.0 cm/s Right Atrial Pressure 3.0 mmHg RV Acceleration Time 0.1 s RV Ejection Time 0.2 s RV AcT/ET 0.4 FINDINGS Left Ventricle Moderately increased left ventricular cavity size. Severely decreased left ventricular systolic function. Left ventricular ejection fraction is estimated at 25 %. Basal to distal anterior wall, septal and apical akinesis suggestive of myocardial infarction and LAD territory. Mid to distal lateral wall severe hypokinesis.Grade I/IV diastolic dysfunction (abnormal relaxation filling pattern), normal to mildly elevated filling pressures. Right Ventricle The right ventricle is normal in size and function. RVSP could not be calculated due to incomplete tricuspid regurgitation velocity profile. Right Atrium The right atrium is normal in size. Left Atrium The left atrium is normal in size. Mitral Valve Moderately thickened mitral valve. Mild mitral annular calcification. No mitral valve stenosis. Mild mitral valve regurgitation. Aortic Valve Structurally normal aortic valve without significant sclerosis or stenosis. There is no aortic regurgitation. Tricuspid Valve Structurally normal tricuspid valve without significant stenosis or regurgitation. Pulmonary artery systolic pressure is normal. Pulmonic Valve Structurally normal pulmonic valve without significant stenosis. There is no pulmonic regurgitation. Pericardium Normal pericardium without effusion. Aorta Normal ascending aorta dimension. CONCLUSIONS 1-Moderately increased left ventricular cavity size. Severely decreased left ventricular systolic function. Left ventricular ejection fraction is estimated at 25 %. Basal to distal anterior wall, septal and apical akinesis suggestive of myocardial infarction and LAD territory. Mid to distal lateral wall severe hypokinesis.Grade I/IV diastolic dysfunction (abnormal relaxation filling pattern), normal to mildly elevated filling pressures. 2-Moderately thickened mitral valve. Mild mitral annular calcification. No mitral valve stenosis. Mild mitral valve regurgitation. 3-The right ventricle is normal in size and function. RVSP could not be calculated due to incomplete tricuspid regurgitation velocity profile. 4-There is no pericardial effusion. 5-Right atrial pressure is around 15 mm of mercury. 6-There are no prior echocardiogram studies to compare. Perlita Smalls MD (Electronically Signed) Final Date: 12 April 2021 14:57 S
[2021-04-12] MEDS: clopidogrel 75 mg Tablet PO (10:00)
[2021-04-12] MEDS: aspirin 81 mg EC Tablet PO (10:01)
--- NOTE | 2021-04-12 10:41 | P.DS_ITS ---
Discharge Providers Date of Admission: 04/10/21 10:52 Date of Discharge: April 12, 2021 Attending Provider at Admission: Perlita Smalls MD Attending Provider at Discharge: Perlita Smalls MD Diagnoses at Discharge Discharge Diagnosis (1) ST elevation myocardial infarction (STEMI): Status: Resolved Qualifiers: Involved coronary artery: LAD coronary artery Qualified Code(s): I21.02 - ST elevation (STEMI) myocardial infarction involving left anterior descending coronary artery (2) CHF (congestive heart failure): Status: Acute Qualifiers: Heart failure chronicity: acute on chronic Heart failure type: systolic Qualified Code(s): I50.23 - Acute on chronic systolic (congestive) heart failure (3) Tobacco abuse: Status: Acute Reason for Visit Reason for Visit: CHEST PAIN, POSSIBLE STEMI Hospital Course Hospital Course Melissa Benoit is a 55 year old female presented with chest pain off 3 to 4-hour duration EKG is consistent with old anterior wall myocardial infarction and mild ST elevation in anterior leads no prior EKG to compare. ST elevation [place] pager was alerted I saw patient in the ER. She continues to have chest pain therefore we took her to the [facility]. She was noted to have proximal LAD occlusion. It was treated with balloon angioplasty after somewhat difficulty flow was restored, throughout the course of the LAD it appeared to have few tandem lesions for which we used balloon angioplasty as it appeared to me atretic however once we restore the flow LAD perked up more as a moderate size and long vessel. Proximal calcified LAD lesion was treated with balloon angioplasty followed by drug-eluting stent postdilated with noncompliant balloon. IVUS was performed which showed good stent apposition. In one of the eccentric view there appeared to be hazy lesion which was present before mostly in SANG caudal, there was concern about plaque shift versus ruptured plaque. IVUS was performed. This lesion was treated with another drug-eluting stent overlapping the proximal LAD stent. The stent was postdilated with noncompliant 3 to 5 x 8 mm balloon. Excellent angiographic result was achieved no compromise of circumflex was noted. Left circumflex did not show any significant stenosis rest of the left main does not have any problem. RCA has moderate 60% mid lesion which was thought not to be significant. RCA is a dominant vessel. Since we do not have good radial pulse and there was scar in the wrist we opted for groin approach. Patient tolerated procedure well she is now being shifted to cardiac stepdown unit. Over next 48 to 78 hours patient medicine were optimized left neck ejection fraction showed severely depressed ejection fraction. Patient was diuresed as well for heart failure. Currently she is doing fine today she is doing fine and denies any complaint she is on optimal medical management, she would like to go home we will discharge her home. We will follow her up in 7 days. Advised to keep log of blood pressure pulse and daily weight. Physical Exam Narrative: EXAM NARRATIVE: GENERAL: Patient is awake x3 oriented but overall feeling NECK: No jugular vein distension. HEENT: No cyanosis. No icterus. No pallor. HEART: Regular S1 and S2. No murmur, rub or gallop. LUNGS: Mild expiratory auscultate bilaterally. ABDOMEN: Soft, nontender and nondistended. Positive bowel sounds. No guarding, rebound or tenderness. CENTRAL NERVOUS SYSTEM: Grossly nonfocal. EXTREMITIES: Lower extremities with edema bilaterally. Discharge Data Data Completed and Pending: Completed Studies During Hospitalization Category Date Time Status XR chest 1V lisbeth ble [id number] Stat Exams 04/10/21 08:48 Completed Pending at discharge Category Date Time Status [facility] request for service Routin e Exams 04/10/21 09:14 Taken CV. echo complete * [id number] Routine Ultrasound 04/12/21 08:54 Taken Vitals: Last Vital Signs Temp 97.8 F 04/12/21 03:39 Pulse 93 04/12/21 03:55 Resp 20 H 04/12/21 03:39 BP 111/86 04/12/21 03:39 Pulse Ox 93 04/12/21 03:39 Discharge Plan Discharge Patient Disposition: Home Condition: Stable Prescriptions: New atorvastatin 40 mg Tablet 40 mg PO BEDTIME Qty: 30 RF: 6 clopidogrel 75 mg Tablet 75 mg PO DAILY Qty: 90 RF: 5 aspirin 81 mg Tablet,Delayed Release (Dr/Ec) 81 mg PO DAILY Qty: 90 RF: 4 Protonix [address] for susp in packet 40 mg PO DAILY 30 Days Qty: 30 RF: 4 lisinopril 2.5 mg tablet 2.5 mg PO DAILY Qty: 30 RF: 3 metoprolol succinate 25 mg tablet extended release 24 hr 12.5 mg PO DAILY Qty: 30 RF: 6 Lasix 20 mg tablet 20 mg PO QAM Qty: 30 RF: 4 potassium chloride 20 mEq tablet extended release 10 meq PO DAILY Qty: 30 RF: 4 Discharge Orders: Discharge Order (Routine); Ordered 04/12/21 Ordered By: Perlita Smalls Referrals: Kevin Gill DO [Physician] - Perlita Smalls MD [Physician] - 05/19/21 1:45 pm ([facility] will contact you to set an appointment.) Laura Peterson FNP [Nurse Practitioner] - 04/17/21 1:30 pm ([facility] will contact you to set an appointment.) Discharge Diet: Cardiac and Low Salt Discharge Activity: Increase activity as tolerated Patient Instructions: Clopidogrel (By mouth), Heart Attack (DC), Coronary Intravascular Stent Placement (DC) Activity Restrictions/Additional Instructions: Follow-up with Ms. Laura Peterson in 7 days. Keep a log of blood pressure pulse and weight on daily basis bring it to cardiology clinic. No more than 2 g salt a day. If you have any problem you can call Dr. Smalls's office. Follow-up with Dr. Smalls in 4 weeks. Discharge Attestations Time Spent in Discharge Care*: less than 30 min Specific Discharge Activities: educating patient Time Spent in Smoking Cessation: 3 to 10 minutes Quality Metrics Clinical Quality Measures During this hospital stay, did patient experience: AMI Clinical Trial Participant: Yes Contraindication to aspirin (AMI): Aspirin given Contraindicati on to statin: Statin prescribed Contraindication to PCI: PCI performed Coding Level of Care Code Established Pt Acute Chg FW DC note Patient Type Established History Comprehensive Exam Comprehensive Medical Decision Making Moderate Complexity Diagnoses ST elevation myocardial infarction (STEMI) I21.02 Involved coronary artery: LAD coronary artery CHF (congestive heart failure) I50.23 Heart failure chronicity: acute on chronic Heart failure type: systolic Tobacco abuse Z72.0
[2021-04-12] MEDS: metoprolol succinate ER (24 HR) 25 mg Tablet 12.5 MG PO (11:20)
--- NOTE | 2021-04-12 12:13 | PC.NURSE ---
Discussed with Dr. Smalls that I did not see an order for a bet jacinto. Physician states I gave verbal order yesterday ro start metoprolol. New verbal given and order placed. HR 101 currently.
[2021-04-12 13:00] VITALS: BP 95/65; PULSE 88; RESP 18; O2SAT 96
[2021-04-12 13:25] VITALS: BP 95/65; PULSE 88; RESP 18; TEMP 36.3; O2SAT 96
== END 2021-04-12 15:30 | disposition home or self-care (01) | DRG 247 ==
LOC: ER 08:48 → CCL 09:11 → CSU 10:53
PROVIDERS: Admitting Provider Internal Medicine Cardiovascular Disease; Emergency Provider Family Medicine; Visit Provider Internal Medicine Cardiovascular Disease
PROC: B2111ZZ Fluoroscopy of Multiple Coronary Arteries using Low Osmolar Contrast (ICD-10-PCS; principal; 2021-04-10 09:00)
PROC: B2111ZZ Fluoroscopy of Multiple Coronary Arteries using Low Osmolar Contrast (ICD-10-PCS; 2021-04-10 09:00)
DX: I21.02 ST elevation (STEMI) myocardial infarction involving left anterior descending coronary artery (principal); I50.22 Chronic systolic (congestive) heart failure; F17.200 Nicotine dependence, unspecified, uncomplicated
CPT/HCPCS: 36415; 71045; 80048; 80053; 82550; 82553; 84484; 85025; 85347; 85730; 92978; 93005; 93306; 93452; 96374; 96375; 99285; C1725; C1753; C1769; C1874; C1887; C1894; C9600; J1644; J1885; J2250; J2405; J3010; J3246; J3490; J7030; Q9967

== ENCOUNTER → 2021-04-17 14:50 | Outpatient (BNVA) | payer MEDICAID, SELFPAY | PROVIDERS: Visit Provider Nurse Practitioner Family | DX: I21.3 ST elevation (STEMI) myocardial infarction of unspecified site (principal); I25.10 Atherosclerotic heart disease of native coronary artery without angina pectoris | CPT/HCPCS: 80048 ==

== ENCOUNTER 2021-05-09 04:33 | Emergency (ER) | payer MEDICAID, SELFPAY ==
[2021-05-09 04:34] VITALS: BP 113/69; PULSE 90; RESP 20; TEMP 36.6; O2SAT 96; BMI 22.3
--- NOTE | 2021-05-09 04:34 | W.ED.SOB ---
Documented by User: Chet Lira MD 05/17/21 19:41 HPI - SOB/Dyspnea General: Chief Complaint: Shortness of Breath/Dyspnea Stated Complaint: sob, wheezing Time Seen by Provider: 05/09/21 06:46 History of Present Illness: HPI Narrative: Ms. Benoit is a 55-year-old lady with history of CAD status post PCI, CHF, history of tobaccoism who presents to the emergency department due to shortness of breath and cough. She reports being at her baseline health yesterday without significant changes, she has been compliant with her medication regimen. She felt a little fatigued after chopping wood yesterday and laid down for nap. She woke up and felt mildly improved and then lay down again after taking medications. At about 11 PM she woke up feeling short of breath. This was exacerbated when lying flat. She did have mild chest discomfort though reports that this does not feel similar to prior MS. Intensity of symptoms was moderate to severe. Patient denies frequent history of similar. She is working on quitting smoking. Patient had mild improvement with going outside into the cold air, EMS gave breathing treatment, terbutaline, and Decadron with some improvement. Patient otherwise denies focal infectious symptoms. No other specific change in health, exacerbating, or relieving factors identified MD elicited complaint: shortness of breath and cough Pertinent past history: congestive heart failure and other Onset (ago): hour(s) Context: other Timing: constant and progressively worsening Severity: severe Exacerbating factors: lying flat and coughing Relieving factors: cool air Known history of: congestive heart failure and other Associated symptoms: Reports no associated symptoms Treatment prior to arrival: oxygen, bronchodilator and other Review of Systems General: Reports: 10 or more systems reviewed and unremarkable except in HPI and below PFSH ED PFSH: Medical History Atherosclerosis of coronary artery Ovarian cyst STEMI (ST elevation myocardial infarction) Surgical History H/O tubal ligation H/O: hysterectomy History of appendectomy History of laparotomy Social History Smoking and tobacco status: current every day smoker Alcohol intake: never Physical Exam Const: COMMON NORMALS: alert GENERAL APPEARANCE: cooperative, well developed and ill appearing (Mildly) HENMT: COMMON NORMALS: normocephalic and atraumatic HEAD & SCALP: normocephalic and atraumatic THROAT: posterior oropharynx normal Eye: COMMON NORMALS: conjunctivae normal CONJUNCTIVA: Yes conjunctivae normal SCLERA: sclerae normal Neck/C-Spine: COMMON NORMALS: supple GENERAL: Yes trachea midline Resp: EFFORT & INSPECTION: Yes able to speak in complete sentences and Yes Actively coughing AUSCULTATION: wheezes and diminished lung sounds Cardio: COMMON NORMALS: regular rate and regular rhythm RATE: regular rate RHYTHM: regular rhythm OTHER: No significant peripheral edema. GI: COMMON NORMALS: Soft to palpation PALPATION: Yes Soft to palpation and No Tenderness to palpation present (GI) PERCUSSION: normal to percussion Extremity: GENERAL: Yes normal exam except as noted and No edema Neuro: COMMON NORMALS: moves all extremities SENSORIUM/ORIENTATION: Yes alert and No Orientation impaired Psych: COMMON NORMALS: mental status grossly normal and Normal thought process present THOUGHT PROCESS: Normal thought process present Course ED course: - Patient was seen and evaluated by me at bedside - Patient placed on cardiac monitors, IV access obtained - Initial evaluation notable for ill appearance with respiratory distress as above -RT treatment and COPD treatment ordered - Labs notable for no leukocytosis. Metabolic panel without significant electrolyte derangement. Transaminitis of unclear etiology. Viral studies negative. Procalcitonin negative. - Imaging notable for pulmonary vascular congestion. There is also prominent interstitial markings. - Patient care handed off to Dr. Lloyd pending completion of ED evaluation and reassessment with likely plan for discharge. Note: Click bubbles or prepopulated morley in note writing are used for assistance with data collection and billing and are inherently more limited than narrative and other text portions of this note. Please use narrative for additional clinical history and defer to narrative/free test for any case of contradictory information. If information appears in only free text or click bubble it should be considered present or absent as reported. Please contact note film writer for clarifications of clinical information or contradictory information. MDM is a brief summary, contradictory or erroneous seeming information should be clarified and full note should be reviewed. Vital Signs: Vital signs: Vital Signs Temperature 97.9 F 05/09/21 04:34 Pulse Rate 90 05/09/21 07:30 Respiratory Rate 14 05/09/21 07:30 Blood Pressure 111/77 05/09/21 07:30 Pulse Oximetry 96 05/09/21 07:30 MDM - SOB/Dyspnea Medical Records: Attestation: I reviewed the patient's medical records. Lab Data: Attestation: I reviewed the patient's lab results. Labs: Lab Results 05/09/21 05/09/21 05/09/21 04:45 04:45 04:45 WBC 6.8 10^3/uL 10^3/ uL (4.0-10.0) RBC 3.77 10^6/uL L 10 ^6/uL (4.1-5.3) Hgb 11.8 g/dL g/dL (11.5-15.3) Hct 37.0 % % (37.0-47.0) MCV 98.1 fl fl (81-99) MCH 31.3 pg pg (28.0-34.0) MCHC 31.9 g/dL g/dL (30.0-36.0) RDW 13.9 % % (12.1-15.1) Plt Count 178 10^3/cmm 10^3 /cmm (130-400) MPV 11.5 fL H fL (7.4-10.4) Neut % (Auto) 62.3 % % Lymph % (Auto) 29.5 % % [place] % (Auto) 5.8 % % Eos % (Auto) 1.5 % % Baso % (Auto) 0.6 % % Neut # (Auto) 4.23 10^3/uL 10^3 /uL (1.8-7.7) Lymph # (Auto) 2.0 10^3/uL 10^3/ uL (0.8-4.8) [place] # (Auto) 0.4 10^3/uL 10^3/ uL (0.2-0.9) Eos # (Auto) 0.1 10^3/uL 10^3/ uL (0.0-0.8) Baso # (Auto) 0.0 10^3/uL 10^3/ uL (0.0-0.1) Nucleated RBC % (a uto) 0 % % Nucleated RBCs # 0.0 /100WBC /100W BC Sodium 141 mmol/L mmol/L (136-145) Potassium 4.3 mmol/L mmol/L (3.5-5.1) Chloride 105 mmol/L mmol/L (98-107) Carbon Dioxide 22 mmol/L mmol/L (22-29) Anion Gap 18.3 (5-19) BUN 25 mg/dL H mg/dL (6-20) Creatinine 0.8 mg/dL mg/dL (0.5-0.9) GFR Calculation 73.9 mL/min L mL/ min (90-130) Glucose 92 mg/dL mg/dL (65-115) Calculated Osmolal ity 296 mOsm/kg H mOs m/kg (285-295) Calcium 8.5 mg/dL mg/dL (8.5-10.5) Total Bilirubin 0.2 mg/dL mg/dL (0.15-1.2) AST 123 U/L H U/L (0-32) ALT 111 U/L H U/L (0-33) Alkaline Phosphata se 109 IU/L H IU/L (35-105) Troponin T Baselin e 20 ng/L H ng/L (0-10) Troponin T 120 Min [place] Troponin T NT-Pro-B Natriuret Pep 4355 pg/mL H pg/m L (0-125) Total Protein 6.3 g/dL L g/dL (6.6-8.7) Albumin 4.0 g/dL g/dL (3.5-5.2) Globulin 2.3 g/dL g/dL (1.3-4.6) Procalcitonin 0.03 ng/mL ng/mL (0-0.5) Nasal/Oral COVID-1 9 PCR Influenza Type A A g Influenza Type B A g SARS-CoV-2 RNA (RT -PCR) 05/09/21 05/09/21 05/09/21 05:20 05:40 05:40 WBC RBC Hgb Hct MCV MCH MCHC RDW Plt Count MPV Neut % (Auto) Lymph % (Auto) [place] % (Auto) Eos % (Auto) Baso % (Auto) Neut # (Auto) Lymph # (Auto) [place] # (Auto) Eos # (Auto) Baso # (Auto) Nucleated RBC % (a uto) Nucleated RBCs # Sodium Potassium Chloride Carbon Dioxide Anion Gap BUN Creatinine GFR Calculation Glucose Calculated Osmolal ity Calcium Total Bilirubin AST ALT Alkaline Phosphata se Troponin T Baselin e Troponin T 120 Min [place] Troponin T NT-Pro-B Natriuret Pep Total Protein Albumin Globulin Procalcitonin Nasal/Oral COVID-1 9 PCR Cancelled Influenza Type A A g Negative (Negative) Influenza Type B A g Negative (Negative) SARS-CoV-2 RNA (RT -PCR) Not detected (NOT DETECTED) 05/09/21 06:29 WBC RBC Hgb Hct MCV MCH MCHC RDW Plt Count MPV Neut % (Auto) Lymph % (Auto) [place] % (Auto) Eos % (Auto) Baso % (Auto) Neut # (Auto) Lymph # (Auto) [place] # (Auto) Eos # (Auto) Baso # (Auto) Nucleated RBC % (a uto) Nucleated RBCs # Sodium Potassium Chloride Carbon Dioxide Anion Gap BUN Creatinine GFR Calculation Glucose Calculated Osmolal ity Calcium Total Bilirubin AST ALT Alkaline Phosphata se Troponin T Baselin e Troponin T 120 Min [place] 20.65 ng/L H ng/L (0-10) Delta Troponin T 0.65 ABS# ABS# (0-10) NT-Pro-B Natriuret Pep Total Protein Albumin Globulin Procalcitonin Nasal/Oral COVID-1 9 PCR Influenza Type A A g Influenza Type B A g SARS-CoV-2 RNA (RT -PCR) EKG Data^: EKG 1: Attestation: I personally reviewed and interpreted this EKG as follows: EKG Interpretation Date: 05/09/21 EKG interpretation time: 04:48 Interpretation: Twelve-lead EKG shows a regular rhythm at a rate of 89. KS interval 159, QRS duration 94, QTc 454. Borderline axis. Interpretation: Sinus rhythm. Nonspecific ST segment abnormalities. Discharge Plan Discharge Patient Disposition: Home Clinical Impression: Acute exacerbation of chronic obstructive airways disease, CHF (congestive heart failure) Condition: Stable Prescriptions: New doxycycline hyclate 100 mg tablet 100 mg PO Q12H 10 Days Qty: 20 RF: 0 Advair Diskus 250-50 mcg/dose blister with device 1 inh inhalation BID Qty: 60 RF: 0 albuterol sulfate 90 mcg/actuation HFA aerosol inhaler 2 inh INHALATION Q4H PRN (Reason: shortness of breath or wheezing) Qty: 18 RF: 0 No Action Chantix Starting Month Box 0.5 mg (11)- 1 mg (42) tablets,dose pack See Rx Instructions PO PER PKG DIR Qty: 53 RF: 0 atorvastatin 40 mg Tablet 40 mg PO BEDTIME Qty: 30 RF: 6 clopidogrel 75 mg Tablet 75 mg PO DAILY Qty: 90 RF: 5 aspirin 81 mg Tablet,Delayed Release (Dr/Ec) 81 mg PO DAILY Qty: 90 RF: 4 Protonix [address] for susp in packet 40 mg PO DAILY 30 Days Qty: 30 RF: 4 lisinopril 2.5 mg tablet 2.5 mg PO DAILY Qty: 30 RF: 3 metoprolol succinate 25 mg tablet extended release 24 hr 12.5 mg PO DAILY Qty: 30 RF: 6 Lasix 20 mg tablet 20 mg PO QAM Qty: 30 RF: 4 potassium chloride 20 mEq tablet extended release 10 meq PO DAILY Qty: 30 RF: 4 Discharge Orders: Discharge ED (Routine); Ordered 05/09/21 Ordered By: Jersey Lloyd Discharge Diet: Usual diet Discharge Activity: Resume usual activity Patient Instructions: Congestive Heart Failure, COPD (Chronic Obstructive Pulmonary Disease) (ED) Activity Restrictions/Additional Instructions: Thank you for visiting the emergency department. You were seen and evaluated for cough and shortness of breath. The exact cause of your symptoms is unclear however the is likely related to exacerbation of your COPD. You will be given antibiotics, steroids, and albuterol. Given that no one has told you that you have COPD you definitely need outpatient follow-up. Case management make arrangements for you to follow-up with pulmonology. Please follow-up with your primary care provider. Please return to the emergency department for recurrent symptoms, worsening symptoms, chest pain, or anything else that you are concerned about and feel needs emergency department evaluation. Sign Out Sign Out Data: Patient Sign Out occurred on 05/09/21 at 06:46. Patient's care was discussed, and care was transferred from to Jersey Lloyd DO. Coding Level of Care Code ED [employer] Agent for Chg Fwd Exam Comprehensive Documented by User: Jersey Lloyd DO 05/09/21 07:21 HPI - SOB/Dyspnea General: Chief Complaint: Shortness of Breath/Dyspnea Stated Complaint: sob, wheezing Time Seen by Provider: 05/09/21 06:46 PFSH ED PFSH: Medical History Atherosclerosis of coronary artery Ovarian cyst STEMI (ST elevation myocardial infarction) Surgical History H/O tubal ligation H/O: hysterectomy History of appendectomy History of laparotomy Social History Smoking and tobacco status: current every day smoker Alcohol intake: never Physical Exam Const: GENERAL APPEARANCE: cooperative and comfortable ORIENTATION/CONSCIOUSNESS: Yes awake, Yes oriented to person, Yes oriented to place and Yes oriented to time HENMT: COMMON NORMALS: normocephalic, atraumatic and hearing grossly normal bilaterally HEAD & SCALP: normocephalic and atraumatic Neck/C-Spine: COMMON NORMALS: no JVD Resp: COMMON NORMALS: normal respiratory effort, No retractions, No use of accessory muscles and clear to auscultation bilaterally AUSCULTATION: clear to auscultation bilaterally Cardio: COMMON NORMALS: no JVD, regular rate, regular rhythm and No murmurs present (Cardio) RATE: regular rate RHYTHM: regular rhythm Extremity: COMMON NORMALS: normal to inspection, capillary refill normal, no clubbing, cyanosis or edema, no calf tenderness and no pedal edema Neuro: SENSORIUM/ORIENTATION: Yes oriented to person, Yes oriented to place and Yes oriented to time Course Vital Signs: Vital signs: Vital Signs Temperature 97.9 F 05/09/21 04:34 Pulse Rate 90 05/09/21 07:30 Respiratory Rate 14 05/09/21 07:30 Blood Pressure 111/77 05/09/21 07:30 Pulse Oximetry 96 05/09/21 07:30 MDM - SOB/Dyspnea MDM Narrative: Medical decision making narrative: Care assumed at change of shift. Patient is feeling much better. Repeat exam for the most part is unremarkable she does not have any significant wheezing at this time. We will go ahead and discharge her home. Continue current medications we will add Advair and gave her a refill of her albuterol inhaler. We will get her set up to see pulmonology and have pulmonary function test. Continue her Lasix FLORI inhibitor and beta-jacinto. She has a follow-up with Dr. Galicia on the which she should keep. Additionally because she is having reports of increased sputum started on doxycycline and prednisone. Return if she has worsening problems. Lab Data: Labs: Lab Results 05/09/21 05/09/21 05/09/21 04:45 04:45 04:45 WBC 6.8 10^3/uL 10^3/ uL (4.0-10.0) RBC 3.77 10^6/uL L 10 ^6/uL (4.1-5.3) Hgb 11.8 g/dL g/dL (11.5-15.3) Hct 37.0 % % (37.0-47.0) MCV 98.1 fl fl (81-99) MCH 31.3 pg pg (28.0-34.0) MCHC 31.9 g/dL g/dL (30.0-36.0) RDW 13.9 % % (12.1-15.1) Plt Count 178 10^3/cmm 10^3 /cmm (130-400) MPV 11.5 fL H fL (7.4-10.4) Neut % (Auto) 62.3 % % Lymph % (Auto) 29.5 % % [place] % (Auto) 5.8 % % Eos % (Auto) 1.5 % % Baso % (Auto) 0.6 % % Neut # (Auto) 4.23 10^3/uL 10^3 /uL (1.8-7.7) Lymph # (Auto) 2.0 10^3/uL 10^3/ uL (0.8-4.8) [place] # (Auto) 0.4 10^3/uL 10^3/ uL (0.2-0.9) Eos # (Auto) 0.1 10^3/uL 10^3/ uL (0.0-0.8) Baso # (Auto) 0.0 10^3/uL 10^3/ uL (0.0-0.1) Nucleated RBC % (a uto) 0 % % Nucleated RBCs # 0.0 /100WBC /100W BC Sodium 141 mmol/L mmol/L (136-145) Potassium 4.3 mmol/L mmol/L (3.5-5.1) Chloride 105 mmol/L mmol/L (98-107) Carbon Dioxide 22 mmol/L mmol/L (22-29) Anion Gap 18.3 (5-19) BUN 25 mg/dL H mg/dL (6-20) Creatinine 0.8 mg/dL mg/dL (0.5-0.9) GFR Calculation 73.9 mL/min L mL/ min (90-130) Glucose 92 mg/dL mg/dL (65-115) Calculated Osmolal ity 296 mOsm/kg H mOs m/kg (285-295) Calcium 8.5 mg/dL mg/dL (8.5-10.5) Total Bilirubin 0.2 mg/dL mg/dL (0.15-1.2) AST 123 U/L H U/L (0-32) ALT 111 U/L H U/L (0-33) Alkaline Phosphata se 109 IU/L H IU/L (35-105) Troponin T Baselin e 20 ng/L H ng/L (0-10) Troponin T 120 Min [place] Troponin T NT-Pro-B Natriuret Pep 4355 pg/mL H pg/m L (0-125) Total Protein 6.3 g/dL L g/dL (6.6-8.7) Albumin 4.0 g/dL g/dL (3.5-5.2) Globulin 2.3 g/dL g/dL (1.3-4.6) Procalcitonin 0.03 ng/mL ng/mL (0-0.5) Nasal/Oral COVID-1 9 PCR Influenza Type A A g Influenza Type B A g SARS-CoV-2 RNA (RT -PCR) 05/09/21 05/09/21 05/09/21 05:20 05:40 05:40 WBC RBC Hgb Hct MCV MCH MCHC RDW Plt Count MPV Neut % (Auto) Lymph % (Auto) [place] % (Auto) Eos % (Auto) Baso % (Auto) Neut # (Auto) Lymph # (Auto) [place] # (Auto) Eos # (Auto) Baso # (Auto) Nucleated RBC % (a uto) Nucleated RBCs # Sodium Potassium Chloride Carbon Dioxide Anion Gap BUN Creatinine GFR Calculation Glucose Calculated Osmolal ity Calcium Total Bilirubin AST ALT Alkaline Phosphata se Troponin T Baselin e Troponin T 120 Min [place] Troponin T NT-Pro-B Natriuret Pep Total Protein Albumin Globulin Procalcitonin Nasal/Oral COVID-1 9 PCR Cancelled Influenza Type A A g Negative (Negative) Influenza Type B A g Negative (Negative) SARS-CoV-2 RNA (RT -PCR) Not detected (NOT DETECTED) 05/09/21 06:29 WBC RBC Hgb Hct MCV MCH MCHC RDW Plt Count MPV Neut % (Auto) Lymph % (Auto) [place] % (Auto) Eos % (Auto) Baso % (Auto) Neut # (Auto) Lymph # (Auto) [place] # (Auto) Eos # (Auto) Baso # (Auto) Nucleated RBC % (a uto) Nucleated RBCs # Sodium Potassium Chloride Carbon Dioxide Anion Gap BUN Creatinine GFR Calculation Glucose Calculated Osmolal ity Calcium Total Bilirubin AST ALT Alkaline Phosphata se Troponin T Baselin e Troponin T 120 Min [place] 20.65 ng/L H ng/L (0-10) Delta Troponin T 0.65 ABS# ABS# (0-10) NT-Pro-B Natriuret Pep Total Protein Albumin Globulin Procalcitonin Nasal/Oral COVID-1 9 PCR Influenza Type A A g Influenza Type B A g SARS-CoV-2 RNA (RT -PCR) Discharge Plan Discharge Patient Disposition: Home Clinical Impression: Acute exacerbation of chronic obstructive airways disease, CHF (congestive heart failure) Condition: Stable Prescriptions: New doxycycline hyclate 100 mg tablet 100 mg PO Q12H 10 Days Qty: 20 RF: 0 Advair Diskus 250-50 mcg/dose blister with device 1 inh inhalation BID Qty: 60 RF: 0 albuterol sulfate 90 mcg/actuation HFA aerosol inhaler 2 inh INHALATION Q4H PRN (Reason: shortness of breath or wheezing) Qty: 18 RF: 0 No Action Chantix Starting Month Box 0.5 mg (11)- 1 mg (42) tablets,dose pack See Rx Instructions PO PER PKG DIR Qty: 53 RF: 0 atorvastatin 40 mg Tablet 40 mg PO BEDTIME Qty: 30 RF: 6 clopidogrel 75 mg Tablet 75 mg PO DAILY Qty: 90 RF: 5 aspirin 81 mg Tablet,Delayed Release (Dr/Ec) 81 mg PO DAILY Qty: 90 RF: 4 Protonix [address] for susp in packet 40 mg PO DAILY 30 Days Qty: 30 RF: 4 lisinopril 2.5 mg tablet 2.5 mg PO DAILY Qty: 30 RF: 3 metoprolol succinate 25 mg tablet extended release 24 hr 12.5 mg PO DAILY Qty: 30 RF: 6 Lasix 20 mg tablet 20 mg PO QAM Qty: 30 RF: 4 potassium chloride 20 mEq tablet extended release 10 meq PO DAILY Qty: 30 RF: 4 Discharge Orders: Discharge ED (Routine); Ordered 05/09/21 Ordered By: Jersey Lloyd Discharge Diet: Usual diet Discharge Activity: Resume usual activity Patient Instructions: Congestive Heart Failure, COPD (Chronic Obstructive Pulmonary Disease) (ED) Activity Restrictions/Additional Instructions: Thank you for visiting the emergency department. You were seen and evaluated for cough and shortness of breath. The exact cause of your symptoms is unclear however the is likely related to exacerbation of your COPD. You will be given antibiotics, steroids, and albuterol. Given that no one has told you that you have COPD you definitely need outpatient follow-up. Case management make arrangements for you to follow-up with pulmonology. Please follow-up with your primary care provider. Please return to the emergency department for recurrent symptoms, worsening symptoms, chest pain, or anything else that you are concerned about and feel needs emergency department evaluation. Sign Out Sign Out Data: Patient Sign Out occurred on 05/09/21 at 06:46. Patient's care was discussed, and care was transferred from to Jersey Lloyd DO. Coding Level of Care Code ED [employer] Agent for Liseth Fwish Exam Comprehensive
--- NOTE | 2021-05-09 04:40 | ECG_ITS ---
[facility] Test Date: 2021-05-09 Pat Name: Melissa Benoit Department: Room: Gender: Female Ux Ui Designer: : 1965 Requested By: Chet Lira Order Number: [id number] Reading MD: MAUREEN MARION Measurements Intervals Raymond Rate: 89 P: 46 IA: 159 QRS: -33 QRSD: 94 T: 115 QT: 372 QTc: 454 Interpretive Statements SINUS RHYTHM POSSIBLE LEFT ATRIAL ENLARGEMENT [-0.1mV P-WAVE IN V1/V2] LEFT AXIS DEVIATION [QRS AXIS < -30] LOW QRS VOLTAGE IN PRECORDIAL LEADS [QRS DEFLECTION < 1.0 mV IN CHEST LEADS] INCOMPLETE RIGHT BUNDLE BRANCH BLOCK [90+ ms QRS DURATION, TERMINAL R IN V1/V2, 40+ ms S IN I/aVL/V4/V5/V6] ANTEROSEPTAL MYOCARDIAL INFARCTION , PROBABLY old [40+ ms Q WAVE IN V1-V4] Compared to ECG 04/10/2021 15:01:[address] elevation in the anterior wall ST elevation has resolved in the anterolateral wall Electronically Signed On 05-09-2021 18:16:09 OFFSET LITHOGRAPHIC PRESS SETTER by MAUREEN MARION [id number] f
--- NOTE | 2021-05-09 04:40 | XRR_ITS ---
PROCEDURE INFORMATION: Exam: XR Chest Exam date and time: 05/09/2021 4:40 AM Age: 55 years old Clinical indication: Shortness of breath; Prior surgery; Surgery type: Coronary stents; Patient HX: Cough and wheezing with white sputum. ; Additional info: SOB TECHNIQUE: Imaging protocol: XR of the chest. Views: 1 view. COMPARISON: CR XR chest 1V portable [id number] 04/10/2021 9:06 AM FINDINGS: Lungs: There is enlargement of the pulmonary vascularity. There is thickening of the interstitial markings. Pleural spaces: Tiny bilateral pleural effusions. Heart/Mediastinum: The heart is mildly enlarged. Bones/joints: Unremarkable. XR/XR chest 1V portable [id number] IMPRESSION: 1. Congestive heart failure. 2. Tiny bilateral pleural effusions.
[2021-05-09] MEDS: benzonatate 100 mg Capsule PO (04:59)
[2021-05-09 05:06] LABS: Basophils % 0.6 %; Eosinophils # 0.1 10^3/uL (0.0-0.8); Eosinophils % 1.5 %; Hemoglobin 11.8 g/dL (11.5-15.3); Lymphocytes % 29.5 %; Mean Corpuscular HGB Conc 31.9 g/dL (30.0-36.0); Mean Corpuscular Hemoglobin 31.3 pg (28.0-34.0); Mean Corpuscular Volume 98.1 fl (81-99); Mean Platelet Volume 11.5 fL (7.4-10.4); Monocytes # 0.4 10^3/uL (0.2-0.9); Monocytes % 5.8 %; Neutrophils # 4.23 10^3/uL (1.8-7.7); Neutrophils % 62.3 %; Nucleated Red Blood Cells % 0 %; Platelet Count 178 10^3/cmm (130-400); Red Blood Count 3.77 10^6/uL (4.1-5.3); Red Cell Distribution Width 13.9 % (12.1-15.1); White Blood Count 6.8 10^3/uL (4.0-10.0)
[2021-05-09] MEDS: ipratropium-albuterol 3 mL Neb INHALATION (05:24)
[2021-05-09 05:25] VITALS: PULSE 86; RESP 20; O2SAT 99
[2021-05-09 05:28] LABS: Troponin(5th) Baseline 20 ng/L (0-10)
[2021-05-09 05:36] LABS: NT Pro B Type Natriuretic Pept 4355 pg/mL (0-125); Procalcitonin 0.03 ng/mL (0-0.5)
[2021-05-09 05:51] LABS: Alanine Aminotransferase 111 U/L (0-33); Alkaline Phosphatase 109 IU/L (35-105); Anion Gap 18.3 (5-19); Aspartate Amino Transferase 123 U/L (0-32); Blood Urea Nitrogen 25 mg/dL (6-20); Calcium 8.5 mg/dL (8.5-10.5); Carbon Dioxide 22 mmol/L (22-29); Chloride 105 mmol/L (98-107); Globulin 2.3 g/dL (1.3-4.6); Glomerular Filtration Rate 73.9 mL/min (90-130); Glucose 92 mg/dL (65-115); Osmolality Calculated 296 mOsm/kg (285-295); Potassium 4.3 mmol/L (3.5-5.1); Sodium 141 mmol/L (136-145); Total Bilirubin 0.2 mg/dL (0.15-1.2); Total Protein 6.3 g/dL (6.6-8.7)
[2021-05-09] MEDS: FUROsemide 10 mg/mL SDV 4mL 40 MG IVP (06:08)
[2021-05-09 06:11] VITALS: BP 99/60; PULSE 96; RESP 23; O2SAT 99
[2021-05-09 06:37] LABS: Influenza A by IFA Negative (Negative); Influenza B by IFA Negative (Negative)
--- NOTE | 2021-05-09 06:40 | ECG_ITS ---
[facility] Test Date: 2021-05-09 Pat Name: Melissa Benoit Department: Room: Gender: Female Compliance Tester: : 1965 Requested By: Chet Lira Order Number: [id number] Reading MD: MAUREEN MARION Measurements Intervals [place] Rate: 89 P: 46 RI: 159 QRS: -33 QRSD: 94 T: 115 QT: 372 QTc: 454 Interpretive Statements SINUS RHYTHM POSSIBLE LEFT ATRIAL ENLARGEMENT [-0.1mV P-WAVE IN V1/V2] LEFT AXIS DEVIATION [QRS AXIS < -30] LOW QRS VOLTAGE IN PRECORDIAL LEADS [QRS DEFLECTION < 1.0 mV IN CHEST LEADS] INCOMPLETE RIGHT BUNDLE BRANCH BLOCK [90+ ms QRS DURATION, TERMINAL R IN V1/V2, 40+ ms S IN I/aVL/V4/V5/V6] ANTEROSEPTAL MYOCARDIAL INFARCTION , PROBABLY old [40+ ms Q WAVE IN V1-V4] ACUTE IL ST elevation has resolved Electronically Signed On 05-09-2021 18:19:07 COUPON AND BOND COLLECTION CLERK by MAUREEN MARION [id number]
[2021-05-09 06:55] LABS: Troponin 5 2HR 20.65 ng/L (0-10); Troponin 5 2HR Delta 0.65 ABS# (0-10)
[2021-05-09 07:07] VITALS: BP 111/77; PULSE 90; RESP 14; O2SAT 96
--- NOTE | 2021-05-09 07:09 | PC.NURSE ---
Received report from Monica MESA. Pt resting in bed, resp even and unlabored. Pt stated I feel better then when I came in .
[2021-05-09 07:30] VITALS: BP 111/77; PULSE 90; RESP 14; O2SAT 96
--- NOTE | 2021-05-09 11:31 | DCPLANNER ---
Addendum entered by Katelyn Tilley 07/24/21 07:44: Patient had a follow up appointment scheduled for 06.24.21 for a PFT - patient did not attend appointment. Patient had a follow up appointment scheduled for 06.04.[address] Helton was rescheduled for a later date. Addendum entered by Katelyn Tilley 06/21/21 11:01: Patient has a PFT scheduled for Thursday, June 24, 2021 at 11:15. Centralized scheduling will call patient with appointment information. Original Note: hvac manager had message to schedule a follow up appointment for patient with [facility], pulomonology. hvac manager called [facility], spoke with Tiffanie Parekh, gave clinic patients information. A follow up appointment was scheduled for Friday, June 04, 2021 at 8:[address] Helton. hvac manager called phone number [phone], unable to speak with patient at this time, a voicemail was left for patient to return case management social worker phone call. hvac manager also had message to schedule an outpatient PFT, a signed order was faxed to centralized scheduling, who will call patient with appointment information.
[2021-05-11 10:48] LABS: Quest SARS-CoV-2 RNA NOT DETECTED (NOT DETECTED)
== END 2021-05-09 07:28 | disposition home or self-care (01) ==
PROVIDERS: Emergency Medicine; Emergency Provider Family Medicine
DX: J44.1 Chronic obstructive pulmonary disease with (acute) exacerbation (principal); I50.9 Heart failure, unspecified; Z79.02 Long term (current) use of antithrombotics/antiplatelets; Z79.82 Long term (current) use of aspirin; I25.2 Old myocardial infarction; F17.210 Nicotine dependence, cigarettes, uncomplicated; Z20.822 Contact with and (suspected) exposure to COVID-19
CPT/HCPCS: 71045; 80053; 83880; 84145; 84484; 85025; 87635; 87804; 93005; 94640; 96374; 99284; J1940

== ENCOUNTER 2021-07-07 18:51 | Observation (INO) | payer MEDICAID, SELFPAY ==
[2021-07-07] VITALS (8 sets, daily range): BP systolic 99–130; BP diastolic 65–85; PULSE 100–122; RESP 16–29; TEMP 36.9–37; O2SAT 92–99; BMI 22.3
--- NOTE | 2021-07-07 18:58 | ED_ITS ---
HPI - SOB/Dyspnea General: Chief Complaint: Shortness of Breath/Dyspnea Stated Complaint: SOB Time Seen by Provider: 07/07/21 18:58 History of Present Illness: HPI Narrative: Ms. Benoit is a 56-year-old lady with significant past medical history of CHF, CAD, tobaccoism, and COPD who presents emergency department due to respiratory distress. She reports waking up this morning feeling short of breath. She endorses feeling as discomfort and feeling like it is hard to get deep breath. She has had mild increased cough associated with this however no other specific infectious symptoms. She denies history of DVT or PE, she does endorse similar history feeling when she had fluid overload. Overall the course of symptoms has been worsening. Intensity is moderate to severe. She has tried home albuterol and EMS administered DuoNeb with mild relief. No other specific changes in health, exacerbating, or alleviating factors identified. Pertinent past history: COPD and congestive heart failure Onset (ago): hour(s) Timing: progressively worsening Severity: severe Exacerbating factors: nothing Relieving factors: bronchodilators Associated symptoms: Reports cough Review of Systems General: Reports: 10 or more systems reviewed and unremarkable except in HPI and below PFSH ED PFSH: Medical History Atherosclerosis of coronary artery Ovarian cyst STEMI (ST elevation myocardial infarction) Surgical History H/O tubal ligation H/O: hysterectomy History of appendectomy History of laparotomy Family History Other CHF (congestive heart failure) Social History Smoking and tobacco status: current every day smoker Alcohol intake: never Lives independently: Yes Household members: significant other Marital status: Life Partner Current occupational status: disabled Physical Exam Const: COMMON NORMALS: alert GENERAL APPEARANCE: cooperative, well developed, in distress (Increased work of breathing) and ill appearing (Somewhat) HENMT: COMMON NORMALS: normocephalic and atraumatic HEAD & SCALP: normocephalic and atraumatic THROAT: posterior oropharynx normal Eye: COMMON NORMALS: conjunctivae normal CONJUNCTIVA: Yes conjunctivae normal SCLERA: sclerae normal Neck/C-Spine: COMMON NORMALS: supple GENERAL: Yes trachea midline Resp: EFFORT & INSPECTION: Yes tachypneic and Yes respiratory distress AUS CULTATION: rhonchi lower bilaterally, wheezes lower bilaterally and diminished lung sounds Cardio: COMMON NORMALS: regular rate and regular rhythm RATE: regular rate RHYTHM: regular rhythm GI: COMMON NORMALS: Soft to palpation PALPATION: Yes Soft to palpation and No Tenderness to palpation present (GI) PERCUSSION: normal to percussion Extremity: GENERAL: Yes normal exam except as noted and No edema Neuro: COMMON NORMALS: moves all extremities SENSORIUM/ORIENTATION: Yes alert and No Orientation impaired Psych: COMMON NORMALS: mental status grossly normal and Normal thought process present THOUGHT PROCESS: Normal thought process present Course ED course: - Patient was seen and evaluated by me at bedside - Patient placed on cardiac monitors, IV access obtained - Initial evaluation notable for ill appearance with respiratory distress and tachycardia and tachypnea - RT treatment, steroids, doxycycline ordered - Labs notable for no leukocytosis, normal hemoglobin. ABG with compensation no hypoxemia present. Metabolic panel with likely evidence of mild dehydration. Delta troponin negative. BNP is elevated. - Given significant work of breathing and evidence of fatigue despite ABG findings we will trial patient on BiPAP. - Imaging notable for COPD without lobar consolidation. - Upon serial reexamination after treatment the patient was mildly improved on BiPAP I did administer anxiolysis for BiPAP. - Based on patient history, evaluation, labs, and imaging as interpreted the most likely cause of the patient's condition is COPD exacerbation with acute hypoxic respiratory failure - The results of ED evaluation were discussed with the patient including plan for admission due to requirement for level of care not available if discharged to prevent significant worsening/deterioration. -Hospitalist service contacted and agreed admit the patient - Patient was admitted without further deterioration or significant events. Note: Click bubbles or prepopulated morley in note writing are used for assistance with data collection and billing and are inherently more limited than narrative and other text portions of this note. Please use narrative for additional clinical history and defer to narrative/free test for any case of contradictory information. If information appears in only free text or click bubble it should be considered present or absent as reported. Please contact note remote mortgage underwriter for clarifications of clinical information or contradictory information. MDM is a brief summary, contradictory or erroneous seeming information should be clarified and full note should be reviewed. Vital Signs: Vital signs: Vital Signs Temperature 98.5 F 07/09/21 07:59 Pulse Rate 90 07/09/21 12:30 Respiratory Rate 18 07/09/21 12:30 Blood Pressure 102/62 07/09/21 07:59 Pulse Oximetry 95 07/09/21 12:30 MDM - SOB/Dyspnea Medical Decision Making 56-year-old lady with history of COPD not on supplemental oxygen at baseline presenting with respiratory distress. Patient tachycardic and tachypneic with new oxygen requirement. With increased work of breathing and evidence of mild fatigue patient placed on BiPAP. Admitted for definitive management and treatm ent. Medical Records I reviewed the patient's medical records. Lab Data I reviewed the patient's lab results. : 07/09/21 04:59 07/09/21 04:59 Labs/Radiology: Radiology Impressions Chest X-Ray 07/07/21 19:09 IMPRESSION: Sequela of COPD, no acute findings. Chest CTA 07/09/21 07:31 IMPRESSION: 1. No evidence of pulmonary embolus. 2. Small to moderate circumferential pericardial effusion. 3. Small bilateral pleural effusions with slight bibasilar atelectasis. 4. No other acute findings. Laboratory Results WBC 6.3 10^3/uL (4.0-10.0) 07/07/21 19:11 RBC 4.25 10^6/uL (4.1-5.3) 07/07/21 19:11 Hgb 13.0 g/dL (11.5-15.3) 07/07/21 19:11 Hct 40.1 % (37.0-47.0) 07/07/21 19:11 MCV 94.4 fl (81-99) 07/07/21 19:11 MCH 30.6 pg (28.0-34.0) 07/07/21 19:11 MCHC 32.4 g/dL (30.0-36.0) 07/07/21 19:11 RDW 13.7 % (12.1-15.1) 07/07/21 19:11 Plt Count 195 10^3/cmm (130-400) 07/07/21 19:11 MPV 10.4 fL (7.4-10.4) 07/07/21 19:11 Neut % (Auto) 87.2 % 07/07/21 19:11 Lymph % (Auto) 7.3 % 07/07/21 19:11 [place] % (Auto) 3.6 % 07/07/21 19:11 Eos % (Auto) 1.0 % 07/07/21 19:11 Baso % (Auto) 0.6 % 07/07/21 19:11 Neut # (Auto) 5.50 10^3/uL (1.8-7.7) 07/07/21 19:11 Lymph # (Auto) 0.5 10^3/uL (0.8-4.8) L 07/07/21 19:11 [place] # (Auto) 0.2 10^3/uL (0.2-0.9) 07/07/21 19:11 Eos # (Auto) 0.1 10^3/uL (0.0-0.8) 07/07/21 19:11 Baso # (Auto) 0.0 10^3/uL (0.0-0.1) 07/07/21 19:11 Nucleated RBC % (auto) 0 % 07/07/21 19: Nucleated RBCs # 0.0 /100WBC 07/07/21 19:11 Specimen Type Arterial 07/07/21 19:08 Sample Site Radial, right 07/07/21 19:08 ABG pH 7.45 (7.35-7.45) 07/07/21 19:08 ABG pCO2 34.4 mmHg (35-45) L 07/07/21 19:08 ABG pO2 77.8 mmHg (80.0-100.0) L 07/07/21 19:08 ABG HCO3 23.8 mmol/L (22-26) 07/07/21 19:08 ABG Base Excess 0.2 mmol/L (-2.0-2.0) 07/07/21 19:08 Geoff Test Pos 07/07/21 19:08 Hematocrit 38.8 % (37-47) 07/07/21 19:08 O2 Delivery Device Nc 07/07/21 19:08 O2 Liters/Min 2.0 % 07/07/21 19:08 Corncob Pipes Assembler ID [email or web address] 07/07/21 19:08 Sodium 136 mmol/L (136-145) 07/07/21 19:11 Potassium 4.7 mmol/L (3.5-5.1) 07/07/21 19:11 Chloride 101 mmol/L (98-107) 07/07/21 19:11 Carbon Dioxide 20 mmol/L (22-29) L 07/07/21 19:11 Anion Gap 19.7 (5-19) H 07/07/21 19:11 BUN 23 mg/dL (6-20) H 07/07/21 19:11 Creatinine 0.9 mg/dL (0.5-0.9) 07/07/21 19:11 GFR Calculation 64.3 mL/min (90-130) L 07/07/21 19:11 Glucose 117 mg/dL (65-115) H 07/07/21 19:11 Calculated Osmolality 287 mOsm/kg (285-295) 07/07/21 19:11 Calcium 9.7 mg/dL (8.5-10.5) 07/07/21 19:11 Total Bilirubin 0.6 mg/dL (0.15-1.2) 07/07/21 19:11 AST 26 U/L (0-32) 07/07/21 19:11 ALT 21 U/L (0-33) 07/07/21 19:11 Alkaline Phosphatase 98 IU/L (35-105) 07/07/21 19:11 Troponin T Baseline 32 ng/L (0-10) H 07/07/21 19:11 Troponin T 120 Minute 32.32 ng/L (0-10) H 07/07/21 21:27 Delta Troponin T 0.32 ABS# (0-10) 07/07/21 21:27 C-Reactive Protein 5.8 mg/L (0.0-4.9) H 07/07/21 19:11 NT-Pro-B Natriuret Pep 5497 pg/mL (0-125) H 07/07/21 19:11 Total Protein 7.4 g/dL (6.6-8.7) 07/07/21 19:11 Albumin 3.7 g/dL (3.5-5.2) 07/07/21 19:11 Globulin 3.7 g/dL (1.3-4.6) 07/07/21 19:11 Procalcitonin 0.05 ng/mL (0-0.5) 07/07/21 19:11 Influenza Type A Ag Negative (Negative) 07/07/21 20:17 Influenza Type B Ag Negative (Negative) 07/07/21 20:17 SARS-CoV-2 Ag (Rapid) Negative (Negative) 07/07/21 20:17 EKG Data EKG 1: I personally reviewed and interpreted this EKG as follows: EKG Interpretation Date: 07/07/21 EKG interpretation time: 19:23 Interpretation: Twelve-lead EKG shows a regular rhythm at a rate of 103. PA interval 149, QRS duration 109, QTc 399. Left axis deviation. Interpretation: Sinus rhythm. Tachycardia. Interventricular conduction delay. Nonspecific ST segment abnormalities. EKG 2: I personally reviewed and interpreted this EKG as follows: EKG Interpretation Date: 07/07/21 EKG interpretation time: 22:17 Interpretation: Twelve-lead EKG shows a regular rhythm at a rate of 102. PA interval 142, QRS duration 116, QTc 421. Left axis deviation. Interpretation: Sinus rhythm. Tachycardia. Interventricular conduction delay. Nonspecific ST segment abnormalities. Discharge Plan Discharge Patient Disposition: Placed in Observation Admit Provider: Duy Rain Clinical Impression: Acute exacerbation of chronic obstructive airways disease, Acute hypoxemic respiratory failure Discharge Diet: Cardiac Discharge Activity: Increase activity as tolerated Coding Level of Care Code ED Dish Network Installer for Chg Fwd Exam Comprehensive
--- NOTE | 2021-07-07 19:09 | XRR_ITS ---
PROCEDURE INFORMATION: Exam: XR Chest Exam date and time: 07/07/2021 7:09 PM Age: 56 years old Clinical indication: Cough and dyspnea and shortness of breath; Additional info: SOB TECHNIQUE: Imaging protocol: XR of the chest. Views: 1 view. COMPARISON: CR XR chest 1V portable [id number] 05/09/2021 4:46 AM FINDINGS: Lungs: Hyperinflated lungs. Mild diffuse coarsening of the lung parenchyma with scattered scarring. No consolidation. Pleural spaces: No pleural effusion. No pneumothorax. Heart/Mediastinum: No cardiomegaly. Bones/joints: Visualized osseous structures are intact. XR/XR chest 1V portable [id number] IMPRESSION: Sequela of COPD, no acute findings.
--- NOTE | 2021-07-07 19:09 | ECG_ITS ---
[facility] Test Date: 2021-07-07 Pat Name: Melissa Benoit Department: Room: Gender: Female Dedicated Driver: : 1965 Requested By: Chet Lira Order Number: [id number] Basil MD: Denver Magdaleno M.D. Measurements Intervals [place] Rate: 103 P: 44 SD: 149 QRS: -51 QRSD: 109 T: 97 QT: 340 QTc: 446 Interpretive Statements SINUS TACHYCARDIA POSSIBLE LEFT ATRIAL ENLARGEMENT [-0.1mV P-WAVE IN V1/V2] INCOMPLETE RIGHT BUNDLE BRANCH BLOCK [90+ ms QRS DURATION, TERMINAL R IN V1/V2, 40+ ms S IN I/aVL/V4/V5/V6] LEFT ANTERIOR FASCICULAR BLOCK [QRS AXIS <= -45, QR IN I, RS IN II] ANTEROSEPTAL MYOCARDIAL INFARCTION , OF INDETERMINATE AGE [40+ ms Q WAVE IN V1-V4] Compared to ECG 05/09/2021 04:42:57 Left anterior fascicular block now present Sinus rhythm no longer present Left-axis deviation no longer present Myocardial infarct finding still present Electronically Signed On 07-07-2021 20:58:55 CDT by Denver Magdaleno M.D. [id number]
[2021-07-07 19:16] LABS: Basophils % 0.6 %; Eosinophils # 0.1 10^3/uL (0.0-0.8); Hematocrit 40.1 % (37.0-47.0); Lymphocytes # 0.5 10^3/uL (0.8-4.8); Lymphocytes % 7.3 %; Mean Corpuscular HGB Conc 32.4 g/dL (30.0-36.0); Mean Corpuscular Hemoglobin 30.6 pg (28.0-34.0); Mean Corpuscular Volume 94.4 fl (81-99); Mean Platelet Volume 10.4 fL (7.4-10.4); Monocytes # 0.2 10^3/uL (0.2-0.9); Monocytes % 3.6 %; Neutrophils % 87.2 %; Nucleated Red Blood Cells % 0 %; Platelet Count 195 10^3/cmm (130-400); Red Blood Count 4.25 10^6/uL (4.1-5.3); Red Cell Distribution Width 13.7 % (12.1-15.1); White Blood Count 6.3 10^3/uL (4.0-10.0)
[2021-07-07] MEDS: ipratropium-albuterol 3 mL Neb INHALATION (19:26)
[2021-07-07 19:36] LABS: Troponin(5th) Baseline 32 ng/L (0-10)
[2021-07-07 19:51] LABS: Alanine Aminotransferase 21 U/L (0-33); Albumin Level 3.7 g/dL (3.5-5.2); Alkaline Phosphatase 98 IU/L (35-105); Anion Gap 19.7 (5-19); Aspartate Amino Transferase 26 U/L (0-32); Blood Urea Nitrogen 23 mg/dL (6-20); C Reactive Protein 5.8 mg/L (0.0-4.9); Calcium 9.7 mg/dL (8.5-10.5); Carbon Dioxide 20 mmol/L (22-29); Chloride 101 mmol/L (98-107); Creatinine Clr Calc Pharmacy 60.6721; Globulin 3.7 g/dL (1.3-4.6); Glomerular Filtration Rate 64.3 mL/min (90-130); Glucose 117 mg/dL (65-115); NT Pro B Type Natriuretic Pept 5497 pg/mL (0-125); Osmolality Calculated 287 mOsm/kg (285-295); Potassium 4.7 mmol/L (3.5-5.1); Procalcitonin 0.05 ng/mL (0-0.5); Sodium 136 mmol/L (136-145); Total Bilirubin 0.6 mg/dL (0.15-1.2); Total Protein 7.4 g/dL (6.6-8.7)
[2021-07-07 19:54] LABS: ABG PCO2 34.4 mmHg (35-45); ABG PH Result 7.45 (7.35-7.45); Arterial Blood Gas Hematocrit 38.8 % (37-47); Base Excess ABG 0.2 mmol/L (-2.0-2.0); Blood Gas Allen Test Pos; Blood Gas Sample Site Radial, right; Blood Gas Sample Type Arterial; HCO3 ABG 23.8 mmol/L (22-26); Oxygen Device NC; PO2 ABG 77.8 mmHg (80.0-100.0)
[2021-07-07] MEDS: doxycycline 100 MG in sodium chloride 0.9% (plus) 100 ML IV (20:23)
[2021-07-07 21:06] LABS: Influenza A by IFA Negative (Negative); Influenza B by IFA Negative (Negative); SARS Covid-2 Antigen Negative (Negative)
--- NOTE | 2021-07-07 21:09 | ECG_ITS ---
[facility] Test Date: 2021-07-07 Pat Name: Melissa Benoit Department: Room: Gender: Female Hosiery Mater: : 1965 Requested By: Chet Lira Order Number: [id number] Basil MD: Denver Magdaleno M.D. Measurements Intervals [place] Rate: 102 P: 48 MI: 142 QRS: -48 QRSD: 116 T: 93 QT: 363 QTc: 473 Interpretive Statements SINUS TACHYCARDIA INCOMPLETE RIGHT BUNDLE BRANCH BLOCK [90+ ms QRS DURATION, TERMINAL R IN V1/V2, 40+ ms S IN I/aVL/V4/V5/V6] LEFT ANTERIOR FASCICULAR BLOCK [QRS AXIS <= -45, QR IN I, RS IN II] ANTEROSEPTAL MYOCARDIAL INFARCTION , OF INDETERMINATE AGE [40+ ms Q WAVE IN V1-V4] Compared to ECG 07/07/2021 19:15:18 No significant changes Electronically Signed On 07-09-2021 20:29:39 CDT by Denver Magdaleno M.D. [id number]
[2021-07-07 21:47] LABS: Troponin 5 2HR 32.32 ng/L (0-10); Troponin 5 2HR Delta 0.32 ABS# (0-10)
[2021-07-07] MEDS: LORazepam 2 mg/mL INJ 1 mL 0.5 MG IVP (23:25)
[2021-07-07 23:56] LABS: Glucose Point of Care 143 mg/dL (70-110)
[2021-07-08] VITALS (15 sets, daily range): BP systolic 100–114; BP diastolic 62–74; PULSE 89–112; RESP 16–27; TEMP 36.6–36.8; O2SAT 94–98
--- NOTE | 2021-07-08 00:56 | PM.HP ---
Providers/Chief Complaint Admitting Physician: Duy Rain Chief Complaint: SOB History of Present Illness Pleasant 56-year-old lady with history of COPD, CAD, stenting, current smoker, recently with stressful events in her family, with recently losing her mother, as well as her brother passing away, with recent tensions with her sister and other family members, reports also has been progressively getting short of breath, with dyspnea on exertion, and yesterday and this morning had been very short of breath with cough, productive of yellowish sputum, to the point that it was difficult for her to eat or drink. She states that she has been having mild end of day swelling in her ankles, not significant swelling, but does report history of orthopnea. She does not normally use oxygen. She does report getting quite easily out of breath with exertion or if she has to bend down several times. Denies chest pain or pressure. She reports also being quite claustrophobic. In ER she was transiently started on BiPAP, but could not tolerated well. Reports anxiety attacks with dyspnea which make her dyspnea worse. Reports sometimes taking her boyfriends diazepam to try to break the air hunger cycles. She reports she is intolerant to opioids. In ER after breathing treatment, IV steroid, antibiotic, Ativan, she had felt only slightly better. She reports she recently was supposed to be seeing a automotive detailer and states that a procedure was going to be planned, she is not sure what procedure but thinks it may have been bronchoscopy, but she did not attend the appointment in relation to the recent poor weather episode. In terms of CODE STATUS she states would want attempted resuscitation, but would not want persistent attempts or protracted life support. Review of Systems Const: Denies: fever(s), chills, body aches or malaise Eyes: Denies: change in vision or eye redness ENMT: Denies: throat pain, oral sores or ear or mastoid pain Card: Reports: edema (Intermittent, mild, end of day), dyspnea on exertion and orthopnea; Denies: chest pain or pre-syncope Resp: Reports: dyspnea, productive cough and change in phlegm color; Denies: hemoptysis GI: Denies: abdominal pain, nausea, vomiting, diarrhea, constipation, hematochezia or melena : Denies: flank pain, urinary frequency or hematuria Musc: Denies: back pain, joint swelling or joint redness Skin/Breast: Denies: rash, sores or new lesions Neuro: Denies: headache(s), numbness in extremities, weakness in extremities, dizziness, confusion or seizure-like activity Endo: Denies: polyuria or polydipsia Wally/Lymph: Denies: easy bleeding or purpura All/Imm: Denies: urticaria, throat swelling or tongue swelling Medications/Allergies Home Medications Medication Instructions Recorded Confirmed Last Taken Type pantoprazole 40 mg granules 40 mg PO DAILY 30 Days #30 each 04/12/21 07/07/21 07/06/21 Rx delayed-release for susp in packet (Protonix) varenicline 0.5 mg (11)-1 mg (42) See Rx Instructions PO PER PKG DIR 04/17/21 07/07/21 07/06/21 Rx tablets in a dose pack ([facility] #53 ea Starting Month Box) albuterol sulfate 90 mcg/actuation 2 inh INHALATION Q4H PRN #18 gm 05/09/21 07/07/21 Unknown Rx aerosol inhaler fluticasone 250 mcg-salmeterol 50 1 inh INHALATION BID #60 ea 05/09/21 07/07/21 07/07/21 Rx mcg/dose blistr powdr for inhalation (Advair Diskus) aspirin 81 mg tablet,delayed 81 mg PO DAILY #90 tab 05/19/21 07/07/21 07/06/21 Rx release atorvastatin 40 mg tablet 40 mg PO BEDTIME #90 tab 05/19/21 07/07/21 07/06/21 Rx clopidogrel 75 mg tablet 75 mg PO DAILY #90 tab 05/19/21 07/07/21 07/06/21 Rx furosemide 20 mg tablet (Lasix) 20 mg PO QAM #90 tab 05/19/21 07/07/21 07/06/21 Rx lisinopril 2.5 mg tablet 2.5 mg PO DAILY #90 tab 05/19/21 07/07/21 07/06/21 Rx metoprolol succinate 25 mg 12.5 mg PO DAILY #45 tab 05/19/21 07/07/21 07/06/21 Rx tablet,extended release 24 hr potassium chloride 10 mEq 10 meq PO DAILY #90 tab 05/19/21 07/07/21 07/06/21 Rx tablet,extended release Allergies Allergy/AdvReac Type Severity Reaction Status Date / Time Opioids - Morphine Analogues AdvReac Intermediate ADV-Weaknes Unverified 07/08/21 00:55 s PFSH Acute PFSH: Medical History Atherosclerosis of coronary artery Ovarian cyst STEMI (ST elevation myocardial infarction) Surgical History H/O tubal ligation H/O: hysterectomy History of appendectomy History of laparotomy Family History Other CHF (congestive heart failure) Social History Smoking and tobacco status: current every day smoker Alcohol intake: never Lives independently: Yes Household members: significant other Marital status: Life Partner Current occupational status: disabled Vitals/I&O/Wt Last Vital Signs Temp 98.4 F 07/07/21 23:57 Pulse 102 H 07/07/21 23:57 Resp 18 07/07/21 23:57 BP 104/67 07/07/21 23:57 Pulse Ox 95 07/07/21 23:57 07/07/21 07/07/21 07/08/21 14:59 22:59 06:59 Intake Total 100 / 100 Balance 100 / 100 Weight last 48 hrs Weight 58.967 kg Weight 58.967 kg Physical Exam Const: COMMON NORMALS: no acute distress and patient oriented x3 HENMT: COMMON NORMALS: oropharynx normal Neck/C-Spine: COMMON NORMALS: no JVD Resp: COMMON NORMALS: clear to auscultation bilaterally AUSCULTATION: diminished lung sounds bilateral Cardio: COMMON NORMALS: no JVD, regular rhythm, S1 normal heart sound present, S2 normal heart sound present and No murmurs present (Cardio) RHYTHM: regular rhythm HEART SOUNDS: S1 normal heart sound present and S2 normal heart sound present GI: COMMON NORMALS: Normal to inspection, nondistended, normoactive bowel sounds present, Soft to palpation and non-tender PALPATION: Yes Soft to palpation Extremity: COMMON NORMALS: no joint enlargement and no pedal edema Neuro: COMMON NORMALS: patient oriented x3 and moves all extremities Skin: COMMON NORMALS: no rashes or lesions noted GENERAL SKIN EXAM: no rashes or lesions noted Data : 07/07/21 19:11 07/07/21 19:11 Micro: Microbiology 07/07/21 20:17 Blood Culture - Preliminary Blood SPECIMEN COLLECTED 07/07/21 20:12 Blood Culture - Preliminary Blood SPECIMEN COLLECTED A&P Assessment and plan (1) Acute exacerbation of chronic obstructive airways disease: Partial improvement with treatment in ER. Continue IV steroid and antibiotic with diminished air entry bilaterally, cough productive of purulent yellow sputum, with severe COPD exacerbation. Sputum culture. Breathing treatments. Budesonide. She is also needing oxygen 2 L previously not on oxygen. Prior to discharge home would need oxygen assessment. Encouraged her to resume follow-up with pulmonology. It sounds like they were in process of setting up additional assessment, possibly bronchoscopy. She does also exhibit quite significant symptoms of air hunger. Reports intermittent panic attacks when she gets dyspneic, making her dyspnea worse and intermittent feeling anxiety. She has been taking intermittently her boyfriend's diazepam to try to break the cycle. She is intolerant of opioid, so this would not be an option for air hunger, however, consider benzodiazepine as needed at discharge to help her with the symptoms. Status: Acute (2) Hypoxia: Severe COPD exacerbation currently, but also reports dyspnea on exertion, orthopnea, intermittent ankle swelling. Does have history of CAD. We will additionally assessed by TTE as some of the symptoms sound like she may be having heart failure as well. She does not appear fluid overloaded at this time. No additional diuretics apart from what she is normally on. Status: Acute (3) Atherosclerosis of coronary artery: With history of stenting Status: Acute Qualifiers: Coronary Disease-Associated Artery/Lesion type: nondalton artery [place] vs. transplanted heart: nondalton heart Associated angina: with unspecified form of angina Qualified Code(s): I25.119 - Atherosclerotic heart disease of nondalton coronary artery with unspecified angina pectoris (4) Tobacco abuse: Discussed with her smoking cessation for 7 minutes. Highly encouraged her to quit. She reports she has been on Chantix. She is not sure if it is working for her very well. With history of CAD, COPD, discussed with her risks of progression of disease, other complications. Highly encouraged her to quit. Will provide nicotine replacement as needed. Status: Acute (5) Dyspnea on exertion: As above, COPD with exacerbation, and additional assessment with TTE Status: Acute (6) Orthopnea: As above Status: Acute Attestations Medical Necessity Statement*: Place in observation for additional assessment of management of severe COPD exacerbation, with hypoxia, and assessment of LV function with intermittent symptoms of CHF, history of CAD and active smoking. 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 transplanted heart: nondalton heart Associated angina: with unspecified form of angina Tobacco abuse Z72.0 Dyspnea on exertion R06.00 Orthopnea R06.01
--- NOTE | 2021-07-08 00:57 | USCV_ITS ---
Transthoracic Echo Limited Melissa Benoit Age: 56 Gender: F : 1965 Exam Date: 07/08/2021 02:44 Ordering Phys: Duy Rain MD Technologist: James Delacruz [place] [facility] [place]ication: LV function, valves, Orthopnea, RANDLE, CAD BP: 104 / 67 HR: 99 Rhythm: Sinus Technical Quality: Adequate MEASUREMENTS (Male / Female) Normal Values 2D ECHO LV Diastolic Diameter PLAX 4.5 cm 4.2 - 5.9 / 3.9 - 5.3 cm LV Systolic Diameter PLAX 3.9 cm IVS Diastolic Thickness 1.7 cm 0.6 - 1.0 / 0.6 - 0.9 cm IVS Systolic Thickness 1.3 cm LVPW Diastolic Thickness 1.2 cm 0.6 - 1.0 / 0.6 - 0.9 cm LVPW Systolic Thickness 1.8 cm LVOT Diameter 1.9 cm LV Ejection Fraction 2D Teich 24.9 % LV Ejection Fraction MOD 2C 43.9 % LV Ejection Fraction 2C AL 44.6 % LA Diameter 3.4 cm LA Width 3.6 cm LA Height 3.7 cm RA Width 3.6 cm RA Height 3.5 cm Aorta at Sinotubular Diameter 2.3 cm M-MODE Aortic Annulus Diameter 2.6 cm LA Ao Ratio MM 1.3 MV E Point Septal Separation 3.6 cm DOPPLER MV E' Velocity 11.0 cm/s Right Atrial Pressure 13.0 mmHg FINDINGS Left Ventricle Normal left ventricular size LV systolic function is severely reduced with EF of 20 to 25%. Severe global hypokinesis is seen. Mid to apical anteroseptal and apical canela are akinetic. Right Ventricle The right ventricle is normal in size and function. Right Atrium The right atrium is normal in size. Left Atrium The left atrium is normal in size. Mitral Valve Mitral valve is thickened without significant stenosis or prolapse. There is no mitral regurgitation. Aortic Valve Grossly normal Tricuspid Valve Grossly normal Pulmonic Valve Not well-visualized Pericardium Small pericardial effusion is seen Aorta Normal ascending aorta dimension. CONCLUSIONS Limited echocardiogram performed to assess LV systolic function. LV systolic function is severely reduced with EF of 20 to 25%. Severe global hypokinesis is noted. Mid to apical anteroseptal and apical canela are akinetic. Small pericardial effusion is noted Compared to prior echocardiogram from 04/12/2021, no significant changes are seen Denver Magdaleno MD (Electronically Signed) Final Date: 09 July 2021 07:45 S
--- NOTE | 2021-07-08 01:09 | ECG_ITS ---
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 Measurements Intervals [place] Rate: 104 P: 54 OK: 132 QRS: -39 QRSD: 116 T: 103 QT: 378 QTc: 498 Interpretive Statements SINUS TACHYCARDIA POSSIBLE LEFT ATRIAL ENLARGEMENT [-0.1mV P WAVE IN V1/V2] LEFT AXIS DEVIATION [QRS AXIS < -30] RIGHT BUNDLE BRANCH BLOCK [120+ ms QRS DURATION, UPRIGHT V1, 40+ ms S IN I/aVL/V4/V5/V6] ANTEROSEPTAL MYOCARDIAL INFARCTION , OF INDETERMINATE AGE [40+ ms Q WAVE IN V1-V4] Compared to ECG 07/07/2021 22:13:30 Left-axis deviation now present Right bundle-branch block now present Incomplete right bundle-branch block no longer present Left anterior fascicular block no longer present Myocardial infarct finding still present Electronically Signed On 07-09-2021 20:28:39 CDT by Denver Magdaleno M.D. [id number]
[2021-07-08 01:43] LABS: Troponin 5 6HR 25.06 ng/L (0-10)
[2021-07-08 02:02] LABS: Troponin 5 6HR Delta -6.94 ng/L (0-12)
[2021-07-08] MEDS: enoxaparin 40 mg/0.4 mL Syringe SUBCUT (02:03)
[2021-07-08] MEDS: cefTRIAXone 1,000 MG in sodium chloride 0.9% (plus) 50 ML 100 MG IV (02:04)
[2021-07-08] MEDS: ipratropium-albuterol 3 mL Neb INHALATION ×4 (02:19→20:59)
[2021-07-08] MEDS: pantoprazole DR 40 mg Tablet PO (08:06)
[2021-07-08] MEDS: clopidogrel 75 mg Tablet PO (08:06)
[2021-07-08] MEDS: lisinopril 2.5 mg Tablet PO (08:06)
[2021-07-08] MEDS: potassium chloride ER 10 mEq Tablet PO (08:06)
[2021-07-08] MEDS: FUROsemide 20 mg Tablet PO (08:06)
[2021-07-08] MEDS: budesonide 0.5 mg/2 mL Neb 0.25 MG INHALATION ×2 (08:21→20:59)
--- NOTE | 2021-07-08 12:33 | PM.MISC ---
Miscellaneous Note Note: Patient was on BiPAP, requested RT to give her a break from BiPAP and put on nasal cannula She does not use oxygen at home Does carry history of COPD Active smoker Patient was on BiPAP Bilateral assisted breath sounds Could not appreciate crackles Abdomen soft No signs of edema Patient looks malnourished S1, S2 Nonfocal neuro exam Awake and alert Plan Give patient break from the BiPAP machine and put her on nasal cannula Home O2 evaluation tomorrow I will add azithromycin Continue IV steroids DuoNeb treatment We will follow up with echo Patient will need outpatient pulmonary medicine follow-up Full code Cardiac diet Clinically she looks euvolemic, holdoff on lasix
[2021-07-08] MEDS: azithromycin 250 mg Tablet 500 MG PO (14:03)
[2021-07-08 15:05] LABS: D Dimer 1.33 ug/mIFEU (0-0.59)
[2021-07-08] MEDS: atorvastatin 40 mg Tablet PO (20:15)
[2021-07-08] MEDS: ALPRAZolam 0.5 mg Tablet PO (20:18)
[2021-07-09] VITALS (9 sets, daily range): BP systolic 102–106; BP diastolic 57–62; PULSE 90–112; RESP 16–18; TEMP 36.9; O2SAT 92–96
--- NOTE | 2021-07-09 00:12 | PC.NURSE ---
i reported high pulse 112 to nurse
[2021-07-09] MEDS: cefTRIAXone 1,000 MG in sodium chloride 0.9% (plus) 50 ML 100 MG IV (01:55)
[2021-07-09] MEDS: enoxaparin 40 mg/0.4 mL Syringe SUBCUT (01:55)
[2021-07-09] MEDS: ipratropium-albuterol 3 mL Neb INHALATION ×2 (03:43→08:11)
--- NOTE | 2021-07-09 04:18 | PC.NURSE ---
i reported high pulse 108 to nurse
[2021-07-09 05:24] LABS: Hematocrit 36.9 % (37.0-47.0); Hemoglobin 11.7 g/dL (11.5-15.3); Lymphocytes # 0.6 10^3/uL (0.8-4.8); Lymphocytes % 8.2 %; Mean Corpuscular HGB Conc 31.7 g/dL (30.0-36.0); Mean Corpuscular Hemoglobin 30.9 pg (28.0-34.0); Mean Corpuscular Volume 97.4 fl (81-99); Mean Platelet Volume 10.7 fL (7.4-10.4); Monocytes # 0.5 10^3/uL (0.2-0.9); Neutrophils # 5.77 10^3/uL (1.8-7.7); Neutrophils % 84.5 %; Nucleated Red Blood Cells % 0 %; Platelet Count 182 10^3/cmm (130-400); Red Blood Count 3.79 10^6/uL (4.1-5.3); Red Cell Distribution Width 13.9 % (12.1-15.1); White Blood Count 6.8 10^3/uL (4.0-10.0)
[2021-07-09 05:44] LABS: Alanine Aminotransferase 15 U/L (0-33); Albumin Level 3.2 g/dL (3.5-5.2); Alkaline Phosphatase 97 IU/L (35-105); Anion Gap 15.9 (5-19); Aspartate Amino Transferase 19 U/L (0-32); Blood Urea Nitrogen 29 mg/dL (6-20); Calcium 8.9 mg/dL (8.5-10.5); Carbon Dioxide 21 mmol/L (22-29); Chloride 106 mmol/L (98-107); Globulin 3.4 g/dL (1.3-4.6); Glomerular Filtration Rate 85.9 mL/min (90-130); Glucose 157 mg/dL (65-115); Osmolality Calculated 295 mOsm/kg (285-295); Potassium 4.9 mmol/L (3.5-5.1); Sodium 138 mmol/L (136-145); Total Bilirubin 0.2 mg/dL (0.15-1.2); Total Protein 6.6 g/dL (6.6-8.7)
--- NOTE | 2021-07-09 07:31 | CT_ITS ---
WS: [id number] CTA OF THE CHEST WITH PULMONARY EMBOLISM PROTOCOL TECHNIQUE: High-resolution contrast enhanced CTA of the chest with coronal and sagittal reformatted i mages with pulmonary embolism protocol. MIP images are also reviewed. CLINICAL INFORMATION: acute hypoxia COMPARISON: None. DLP: 505.[address] scans at [facility] use at least one of these dose optimization techniques: automated e xposure control; mA and/or kV adjustment per patient size (includes targeted exams where dose is matc hed to clinical indication); or iterative reconstruction. FINDINGS: Proximal main pulmonary arteries are normal. Normal segmental and subsegmental pulmonary arteries. No evidence of pulmonary embolus. Small to moderate pericardial effusion. Small bilateral pleural effusions with slight bibasilar atele ctasis. Numerous anterior mediastinal and peribronchial lymph nodes likely reactive. Mild bronchovasc ular thickening. No axillary lymphadenopathy. CT/CT angio chest PE protcl [id number] IMPRESSION: 1. No evidence of pulmonary embolus. 2. Small to moderate circumferential pericardial effusion. 3. Small bilateral pleural effusions with slight bibasilar atelectasis. 4. No other acute findings.
[2021-07-09] MEDS: budesonide 0.5 mg/2 mL Neb 0.25 MG INHALATION (08:11)
[2021-07-09] MEDS: azithromycin 250 mg Tablet 500 MG PO (08:29)
[2021-07-09] MEDS: pantoprazole DR 40 mg Tablet PO (08:29)
[2021-07-09] MEDS: lisinopril 2.5 mg Tablet PO (08:29)
[2021-07-09] MEDS: clopidogrel 75 mg Tablet PO (08:29)
[2021-07-09] MEDS: iohexol 350 mg/mL 100 mL Btl IV (09:25)
--- NOTE | 2021-07-09 10:58 | P.DS_ITS ---
Discharge Providers Date of Admission: 07/07/21 22:26 Date of Discharge: July 09, 2021 Attending Provider at Admission: Duy Rain Attending Provider at Discharge: Perlita Gibson MD Diagnoses at Discharge Discharge Diagnosis (1) Acute exacerbation of chronic obstructive airways disease: Status: Acute (2) Hypoxia: Status: Acute (3) Atherosclerosis of coronary artery: Status: Acute Qualifiers: Associated angina: with unspecified form of angina Coronary Disease- Associated Artery/Lesion type: [place] artery [place] vs. transplanted heart: [place] heart Qualified Code(s): I25.119 - Atherosclerotic heart disease of [place] coronary artery with unspecified angina pectoris (4) Tobacco abuse: Status: Acute (5) Dyspnea on exertion: Status: Acute (6) Orthopnea: Status: Acute Reason for Visit Reason for Visit: SOB Hospital Course Hospital Course This is a detailed admission note by Dr. Rain Pleasant 56-year-old lady with history of COPD, CAD, stenting, current smoker, recently with stressful events in her family, with recently losing her mother, as well as her brother passing away, with recent tensions with her sister and other family members, reports also has been progressively getting short of breath, with dyspnea on exertion, and yesterday and this morning had been very short of breath with cough, productive of yellowish sputum, to the point that it was difficult for her to eat or drink.? She states that she has been having mild end of day swelling in her ankles, not significant swelling, but does report his tory of orthopnea.? She does not normally use oxygen.? She does report getting quite easily out of breath with exertion or if she has to bend down several times.? Denies chest pain or pressure. She reports also being quite claustrophobic.? In ER she was transiently started on BiPAP, but could not tolerated well. Reports anxiety attacks with dyspnea which make her dyspnea worse.? Reports sometimes taking her boyfriends diazepam to try to break the air hunger cycles.? She reports she is intolerant to opioids. In ER after breathing treatment, IV steroid, antibiotic, Ativan, she had felt only slightly better. She reports she recently was supposed to be seeing a tire setter and states that a procedure was going to be planned, she is not sure what procedure but thinks it may have been bronchoscopy, but she did not attend the appointment in relation to the recent poor weather episode. In terms of CODE STATUS she states would want attempted resuscitation, but would not want persistent attempts or protracted life support. Hospital course Patient was admitted for management evaluation of COPD exacerbation, she was kept on BiPAP, it improved her work of breathing. She was weaned off BiPAP to room air. She did not qualify for oxygen at the time of discharge. No leukocytosis or signs of fever. CT chest rule out PE, bilateral pleural effusion with atelectasis, no active signs of pneumonia. She was given steroids and azithromycin. COPD exacerbation secondary to active smoking. I will give her nicotine at the time of discharge. Added ipratropium on top of her LABA ICS and [place] combination. Patient is to follow-up with pulmonary medicine, new PCP appointment made Physical Exam Narrative: Patient was saturating well on room air No active wheezing She was awake and alert No active wheezing Abdomen soft S1, S2 She was able to ambulate in the hallway without requiring any oxygen Nonfocal neuro exam Discharge Data Studies Completed and Pending Completed Studies During Hospitalization Category Date Time Status CTA chest [CT angio chest PE protcl [id number]] Routine Cat Scan 07/09/21 07:31 Completed XR chest 1V portable [id number] Urgent Exams 07/07/21 19:09 Completed Pending at discharge Category Date Time Status Blood Culture Stat Lab 07/07/21 20:17 Results Complete Blood Count w/Auto AM LABS Lab 07/10/21 04:00 Ordered Complete Blood Count w/Auto AM LABS Lab 07/11/21 04:00 Ordered Comprehensive Metabolic Panel AM LABS Lab 07/10/21 04:00 Ordered Comprehensive Metabolic Panel AM LABS Lab 07/11/21 04:00 Ordered Sputum Culture and Gram Stain Routine Lab 07/08/21 01:10 Uncollected CV. echo limited [id number] Routine Ultrasound 07/08/21 00:57 Taken Radiology Impressions Chest X-Ray 07/07/21 19:09 IMPRESSION: Sequela of COPD, no acute findings. Chest CTA 07/09/21 07:31 IMPRESSION: 1. No evidence of pulmonary embolus. 2. Small to moderate circumferential pericardial effusion. 3. Small bilateral pleural effusions with slight bibasilar atelectasis. 4. No other acute findings. Laboratory Results WBC 6.8 10^3/uL (4.0-10.0) 07/09/21 04:59 RBC 3.79 10^6/uL (4.1-5.3) L 07/09/21 04:59 Hgb 11.7 g/dL (11.5-15.3) 07/09/21 04:59 Hct 36.9 % (37.0-47.0) L 07/09/21 04:59 MCV 97.4 fl (81-99) 07/09/21 04:59 MCH 30.9 pg (28.0-34.0) 07/09/21 04:59 MCHC 31.7 g/dL (30.0-36.0) 07/09/21 04:59 RDW 13.9 % (12.1-15.1) 07/09/21 04:59 Plt Count 182 10^3/cmm (130-400) 07/09/21 04:59 MPV 10.7 fL (7.4-10.4) H 07/09/21 04:59 Neut % (Auto) 84.5 % 07/09/21 04:59 Lymph % (Auto) 8.2 % 07/09/21 04:59 [place] % (Auto) 7.0 % 07/09/21 04:59 Eos % (Auto) 0.0 % 07/09/21 04:59 Baso % (Auto) 0.0 % 07/09/21 04:59 Neut # (Auto) 5.77 10^3/uL (1.8-7.7) 07/09/21 04:59 Lymph # (Auto) 0.6 10^3/uL (0.8-4.8) L 07/09/21 04:59 [place] # (Auto) 0.5 10^3/uL (0.2-0.9) 07/09/21 04:59 Eos # (Auto) 0.0 10^3/uL (0.0-0.8) 07/09/21 04:59 Baso # (Auto) 0.0 10^3/uL (0.0-0.1) 07/09/21 04:59 Nucleated RBC % (auto) 0 % 07/09/21 04:59 Nucleated RBCs # 0.0 /100WBC 07/09/21 04:59 D-Dimer 1.33 ug/mIFEU (0-0.59) H 07/08/21 14:41 Specimen Type Arterial 07/07/21 19:08 Sample Site Radial, right 07/07/21 19:08 ABG pH 7.45 (7.35-7.45) 07/07/21 19:08 ABG pCO2 34.4 mmHg (35-45) L 07/07/21 19:08 ABG pO2 77.8 mmHg (80.0-100.0) L 07/07/21 19:08 ABG HCO3 23.8 mmol/L (22-26) 07/07/21 19:08 ABG Base Excess 0.2 mmol/L (-2.0-2.0) 07/07/21 19:08 Geoff Test Pos 07/07/21 19:08 Hematocrit 38.8 % (37-47) 07/07/21 19:08 O2 Delivery Device Nc 07/07/21 19:08 O2 Liters/Min 2.0 % 07/07/21 19:08 Certified Surgical First Assistant ID [email or web address] 07/07/21 19:08 Sodium 138 mmol/L (136-145) 07/09/21 04:59 Potassium 4.9 mmol/L (3.5-5.1) 07/09/21 04:59 Chloride 106 mmol/L (98-107) 07/09/21 04:59 Carbon Dioxide 21 mmol/L (22-29) L 07/09/21 04:59 Anion Gap 15.9 (5-19) 07/09/21 04:59 BUN 29 mg/dL (6-20) H 07/09/21 04:59 Creatinine 0.7 mg/dL (0.5-0.9) 07/09/21 04:59 GFR Calculation 85.9 mL/min (90-130) L 07/09/21 04:59 Glucose 157 mg/dL (65-115) H 07/09/21 04:59 POC Glucose 143 mg/dL (70-110) H 07/07/21 23:53 Calculated Osmolality 295 mOsm/kg (285-295) 07/09/21 04:59 Calcium 8.9 mg/dL (8.5-10.5) 07/09/21 04:59 Total Bilirubin 0.2 mg/dL (0.15-1.2) 07/09/21 04:59 AST 19 U/L (0-32) 07/09/21 04:59 ALT 15 U/L (0-33) 07/09/21 04:59 Alkaline Phosphatase 97 IU/L (35-105) 07/09/21 04:59 Troponin T Baseline 32 ng/L (0-10) H 07/07/21 19:11 Troponin T 120 Minute 32.32 ng/L (0-10) H 07/07/21 21:27 Delta Troponin T 0.32 ABS# (0-10) 07/07/21 21:27 Troponin T Hi Sens 6Hr 25.06 ng/L (0-10) H 07/08/21 01:01 Troponin T Hi Sens 6Hr Delta -6.94 ng/L (0-12) L 07/08/21 01:01 C-Reactive Protein 5.8 mg/L (0.0-4.9) H 07/07/21 19:11 NT-Pro-B Natriuret Pep 5497 pg/mL (0-125) H 07/07/21 19:11 Total Protein 6.6 g/dL (6.6-8.7) 07/09/21 04:59 Albumin 3.2 g/dL (3.5-5.2) L 07/09/21 04:59 Globulin 3.4 g/dL (1.3-4.6) 07/09/21 04:59 Procalcitonin 0.05 ng/mL (0-0.5) 07/07/21 19:11 Influenza Type A Ag Negative (Negative) 07/07/21 20:17 Influenza Type B Ag Negative (Negative) 07/07/21 20:17 SARS-CoV-2 Ag (Rapid) Negative (Negative) 07/07/21 20:17 Vitals Last Vital Signs Temp 98.5 F 07/09/21 07:59 Pulse 90 07/09/21 08:17 Resp 18 07/09/21 08:17 BP 102/62 07/09/21 07:59 Pulse Ox 95 07/09/21 08:17 Discharge Plan Discharge Patient Disposition: Home Condition: Stable Prescriptions: New Atrovent HFA 17 mcg/actuation HFA aerosol inhaler 2 inh inhalation Q12H PRN (Reason: shortness of breath or wheezing) Qty: 12.9 3RF Rx Instructions: administer with spacer nicotine 21 mg/24 hr patch 24 hour 1 patch transdermal DAILY 28 Days Qty: 28 0RF nicotine 14 mg/24 hr patch 24 hour 1 patch transdermal DAILY Qty: 14 0RF nicotine 7 mg/24 hr patch 24 hour 1 patch transdermal DAILY Qty: 14 0RF Continued aspirin 81 mg tablet,delayed release (DR/EC) 81 mg PO DAILY Qty: 90 4RF atorvastatin 40 mg tablet 40 mg PO BEDTIME Qty: 90 3RF clopidogrel 75 mg tablet 75 mg PO DAILY Qty: 90 3RF Lasix 20 mg tablet 20 mg PO QAM Qty: 90 3RF lisinopril 2.5 mg tablet 2.5 mg PO DAILY Qty: 90 3RF metoprolol succinate 25 mg tablet extended release 24 hr 12.5 mg PO DAILY Qty: 45 3RF potassium chloride 10 mEq tablet extended release 10 meq PO DAILY Qty: 90 4RF fluticasone propion-salmeterol [Advair Diskus] 250-50 mcg/dose blister with device 1 inh inhalation BID Qty: 60 0RF albuterol sulfate 90 mcg/actuation HFA aerosol inhaler 2 inh INHALATION Q4H PRN (Reason: shortness of breath or wheezing) Qty: 18 0RF pantoprazole [Protonix] [address] for susp in packet 40 mg PO DAILY 30 Days Qty: 30 4RF Discontinued Chantix Starting Month Box 0.5 mg (11)- 1 mg (42) tablets,dose pack See Rx Instructions PO PER PKG DIR Qty: 53 0RF Rx Instructions: PO PER PKG DIR Discharge Orders: Discharge Order (Routine); Ordered 07/09/21 Ordered By: Perlita Gibson Referrals: Kevin Gill DO [Physician] - 07/14/21 11:00 am Datar,Jacky Bennett MD [Physician] - 07/10/21 9:15 am Discharge Diet: Cardiac Discharge Activity: Increase activity as tolerated Patient Instructions: Ipratropium (By breathing), Dyspnea (DC), Opioid Safety Discharge Attestations Time Spent in Discharge Care*: less than 30 min Quality Metrics Clinical Quality Measures [ No reported AMI, CVA or VTE this stay] Coding Level of Care Code Acute Chg FW DC note Diagnoses Acute exacerbation of chronic obstructive airways disease J44.1 Hypoxia R09.02 Atherosclerosis of coronary artery I25.119 Associated angina: with unspecified form of angina Coronary Disease-Associated Artery/Lesion type: [place] artery [place] vs. transplanted heart: [place] heart Tobacco abuse Z72.0 Dyspnea on exertion R06.00 Orthopnea R06.01
--- NOTE | 2021-07-09 12:23 | PC.NURSE ---
Discussed discharge, follow up appointments and medications with patient. Verbalized understanding.
== END 2021-07-09 13:54 | disposition home or self-care (01) ==
LOC: ER 23:00 → MEDSURG 23:25
PROVIDERS: Admitting Provider Internal Medicine; Emergency Provider Emergency Medicine; Visit Provider Internal Medicine
DX: J44.1 Chronic obstructive pulmonary disease with (acute) exacerbation (principal); R09.02 Hypoxemia; I25.119 Atherosclerotic heart disease of native coronary artery with unspecified angina pectoris; R06.00 Dyspnea, unspecified; R06.01 Orthopnea; Z95.5 Presence of coronary angioplasty implant and graft; F17.210 Nicotine dependence, cigarettes, uncomplicated; R60.0 Localized edema; I25.2 Old myocardial infarction; Z82.49 Family history of ischemic heart disease and other diseases of the circulatory system
CPT/HCPCS: 36415; 36416; 36600; 71045; 71275; 80053; 82803; 82962; 83880; 84145; 84484; 85025; 85378; 86140; 87040; 87426; 87804; 93005; 93308; 94640; 94660; 94664; 96365; 96367; 96372; 96375; 96376; 99291; G0378; J0696; J1650; J2060; J2930; J3490; J7611; J7626; Q0144; Q9967

== ENCOUNTER → 2021-12-18 13:13 | Outpatient (BNVA) | payer MEDICAID, SELFPAY | PROVIDERS: Visit Provider Thoracic Surgery (Cardiothoracic Vascular Surgery) | DX: I50.9 Heart failure, unspecified (principal) | CPT/HCPCS: 99203 ==

== ENCOUNTER 2022-01-20 07:37 | Day surgery (SDC) | payer MEDICAID, SELFPAY ==
[2022-01-15 09:10] VITALS: BMI 20.5
[2022-01-15 09:43] LABS: Add Urine Microscopic? YES; Bilirubin Urine Neg (Negative); Blood Urine Neg (Negative); Glucose Urine UA Norm (Normal); Ketones Urine Negative (Negative); Leukocyte Esterase Urine Negative (Negative); Nitrate Urine Negative (Negative); Protein Urine 1+ (Negative); Specific Gravity, Urine 1.025 (1.005-1.030); Urine Appearance Hazy (CLEAR); Urine Color Yellow (Yellow); Urobilinogen Urine Norm (Negative); pH Urine 5 (5-7)
[2022-01-15 09:44] LABS: Add Urine Culture? No; Bacteria Urine TRACE /hpf; Mucus Urine 3+ /hpf; RBC Urine 0-4 /hpf (0-2); WBC Urine 0-4 /hpf (0-5)
--- NOTE | 2022-01-15 09:52 | SUR.PREOP ---
Pre-operative appointment Patient given Mupirocin ointment. Patient educated on application process and frequency. Patient instructed to begin using tomorrow 01/16/22. Pre-operative labs drawn. Chlorhexidine bottle given with Chlorhexidine wipes and soap, patient instructed on use.
--- NOTE | 2022-01-15 09:55 | P.ANESASSM_ITS ---
Pre-Anesthetic Assessment Height/Weight: Height 1.63 m Weight 54.431 kg Preop Diagnosis: Congestive heart failure with cardiomyopathy Operation Date: 01/20/22 09:05 Proposed Procedures p Defibrillator Placement 57272/ I50.9(Not Applicable) - Alexei Mayo MD Familial anesthetic complications: none Was Beta Christine taken within 24 hours: Yes Was Clonidine taken within 24 hours: N/A Social Tobacco and No alcohol Marijuana use Exam alert, oriented x 3, clear to auscultation bilaterally and regular rate & rhythm Airway Submandibular: within normal limits Cervical ROM: within normal limits Mallampati: Class II Dentition: false Pulmonary Chronic Obstructive Pulmonary Disease, Exertional Dyspnea and Shortness of Breath No home O2 use CTA Chest 06/2021 CT/CT angio chest PE protcl [id number] IMPRESSION: ? 1.? No evidence of pulmonary embolus. 2.? Small to moderate circumferential pericardial effusion. 3.? Small bilateral pleural effusions with slight bibasilar atelectasis. 4.? No other acute findings. ? CV/HEM Anemia, Coronary Artery Disease (Stents placed 03/2021), Congestive Heart Failure and Myocardial Infarction Some days can ascend flight of stairs other days not d/t SOB TTE 07/08/21 CONCLUSIONS ?Limited echocardiogram performed to assess LV systolic function. ?LV systolic function is severely reduced with EF of 20 to 25%.? ?Severe global hypokinesis is noted.? Mid to apical anteroseptal ?and apical canela are akinetic. 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 1. 55-year-old male presented with ST elevation CT with anterior wall. Thrombotically occluded proximal LAD was noted.? It was treated with balloon angioplasty/ drug-eluting stent.? After placement of proximal stent thrombus was noted to be traveling backward towards left main and circumflex.? It was trapped with placement of overlapping stent in the ostial LAD into proximal LAD.? Stent was postdilated with noncompliant balloon.? Excellent angiographic result was achieved no residual thrombus or plaque was noted.. ? 2. There is total occlusion coronary artery disease with two vessel disease. ? 3. Proximal Left Anterior Descending was treated with a Balloon, Balloon, Drug Eluting Stent, and Balloon. ? 4. Proximal Left Anterior Descending was treated with a Drug Eluting Stent. ? 5. Mid Left Anterior Descending was treated with a Balloon. Na 146 Chloride 109 Hepatic None reported GI Gastroesophageal Reflux Disease (Diet related ) Metabolic Hyperlipidemia [facility] Osteoarthritis/DJD Neuropsych Anxiety Anesthetic Plan ASA status: 3 Anesthesia: Anesthesia Evaluation, General and MAC Other: I discussed with the patient risks, goals, and benefits of MAC and general anesthesia. We discussed spectrum of MAC anesthesia including conversion to general as well as possibility of recall of intraoperative stimuli including discomfort/pain. Patient agrees to proceed with MAC. Risk of > 500 ml blood loss (7ml/kg in children): No Medications/Allergies Home Medications Medication Instructions Recorded Confirmed Last Taken Type albuterol sulfate 90 mcg/actuation 2 inh inhalation Q4H PRN shortness 05/09/21 01/15/22 Unknown Rx aerosol inhaler of breath or wheezing #18 grams fluticasone 250 mcg-salmeterol 50 1 inh inhalation BID #60 ea 05/09/21 01/15/22 07/07/21 Rx mcg/dose blistr powdr for inhalation (Advair Diskus) aspirin 81 mg tablet,delayed 81 mg PO DAILY #90 tabs 05/19/21 01/15/22 07/06/21 Rx release atorvastatin 40 mg tablet 40 mg PO BEDTIME #90 tabs 05/19/21 01/15/22 07/06/21 Rx clopidogrel 75 mg tablet 75 mg PO DAILY #90 tabs 05/19/21 01/15/22 07/06/21 Rx furosemide 20 mg tablet (Lasix) 20 mg PO QAM #90 tabs 05/19/21 01/15/22 07/06/21 Rx lisinopril 2.5 mg tablet 2.5 mg PO DAILY #90 tabs 05/19/21 01/15/22 07/06/21 Rx metoprolol succinate 25 mg 12.5 mg PO DAILY #45 tabs 05/19/21 01/15/22 07/06/21 Rx tablet,extended release 24 hr potassium chloride 10 mEq 10 meq PO DAILY #90 tabs 05/19/21 01/15/22 07/06/21 Rx tablet,extended release ipratropium bromide 17 2 inh inhalation Q12H PRN 07/09/21 01/15/22 Unknown Rx mcg/actuation HFA aerosol inhaler shortness of breath or wheezing (Atrovent HFA) #12.9 grams pantoprazole 40 mg granules 40 mg PO DAILY 30 days #30 ea 01/02/22 01/15/22 Unknown Rx delayed-release for susp in packet (Protonix) Allergies Allergy/AdvReac Type Severity Reaction Status Date / Time Opioids - Morphine Analogues AdvReac Intermediate ADR-Nausea Verified 01/15/22 09:11 [facility] Anesthesia Medical History Acute exacerbation of chronic obstructive airways disease Acute hypoxemic respiratory failure Atherosclerosis of coronary artery Dyspnea on exertion Hypoxia Orthopnea Ovarian cyst STEMI (ST elevation myocardial infarction) Tobacco abuse Surgical History H/O tubal ligation H/O: hysterectomy History of appendectomy History of laparotomy Family History Other CHF (congestive heart failure) Social History Smoking and tobacco status: current every day smoker Alcohol intake: never Lives independently: Yes Household members: significant other Marital status: Life Partner Current occupational status: disabled Data Anesthesia : 01/15/22 09:20 01/15/22 09:20 Urine 01/15/22 Range/Units 09:08 Urine Color Yellow (Yellow) Urine Appearance Hazy A (CLEAR) Urine pH 5 (5-7) Ur Specific [place] 1.025 (1.005-1.030) Urine Protein 1+ H (Negative) Urine Glucose (UA) Norm (Normal) Urine Ketones Negative (Negative) Urine Nitrate Negative (Negative) Urine Bilirubin Neg (Negative) Ur Leukocyte Esterase Negative (Negative) Urine RBC 0-4 H (0-2) /hpf Urine WBC 0-4 H (0-5) /hpf Cardiac Studies: Echocardiogram 04/12/21 Echocardiogram Limited Views 07/08/21
[2022-01-15 10:02] LABS: Basophils % 0.5 %; Eosinophils # 0.1 10^3/uL (0.0-0.8); Eosinophils % 1.3 %; Hematocrit 36.9 % (37.0-47.0); Hemoglobin 11.4 g/dL (11.5-15.3); Lymphocytes # 0.9 10^3/uL (0.8-4.8); Lymphocytes % 15.3 %; Mean Corpuscular HGB Conc 30.9 g/dL (30.0-36.0); Mean Corpuscular Hemoglobin 30.6 pg (28.0-34.0); Mean Corpuscular Volume 99.2 fl (81-99); Mean Platelet Volume 10.7 fL (7.4-10.4); Monocytes # 0.2 10^3/uL (0.2-0.9); Monocytes % 4.2 %; Neutrophils # 4.35 10^3/uL (1.8-7.7); Neutrophils % 78.5 %; Nucleated Red Blood Cells % 0 %; Platelet Count 182 10^3/cmm (130-400); Red Blood Count 3.72 10^6/uL (4.1-5.3); Red Cell Distribution Width 15.1 % (12.1-15.1); White Blood Count 5.5 10^3/uL (4.0-10.0)
[2022-01-15 10:28] LABS: Blood Urea Nitrogen 24 mg/dL (6-20); Calcium 8.9 mg/dL (8.5-10.5); Carbon Dioxide 29 mmol/L (22-29); Chloride 109 mmol/L (98-107); Creatinine Clr Calc Pharmacy 58.7205; Glomerular Filtration Rate 64.3 mL/min (90-130); Glucose 116 mg/dL (65-115); Osmolality Calculated 307 mOsm/kg (285-295); Sodium 146 mmol/L (136-145)
== END 2022-01-20 08:11 | disposition home or self-care (01) ==
LOC: OR 07:38
PROVIDERS: Visit Provider Thoracic Surgery (Cardiothoracic Vascular Surgery)
PROC: 0JH608Z Insertion of Defibrillator Generator into Chest Subcutaneous Tissue and Fascia, Open Approach (ICD-10-PCS; CPT 33249; principal; 2022-01-20 08:55)
DX: Z01.818 Encounter for other preprocedural examination (principal)
CPT/HCPCS: 80048; 81001; 85025

== ENCOUNTER 2022-01-23 05:56 | Emergency (ER) | payer MEDICAID, SELFPAY ==
--- NOTE | 2022-01-23 05:59 | XRR_ITS ---
PROCEDURE INFORMATION: Exam: XR Chest Exam date and time: 01/23/2022 6:09 AM Age: 56 years old Clinical indication: Shortness of breath; Additional info: Dyspnea/cough TECHNIQUE: Imaging protocol: Radiologic exam of the chest. Views: 1 view. COMPARISON: CR XR chest 1V portable [id number] 07/07/2021 6:20 PM FINDINGS: Lungs: There are normal lung volumes. Mild bilateral perihilar interstitial opacities are seen with some bilateral basilar airspace opacities. Small bilateral pleural effusions. These findings may represent multifocal pneumonia with associated pulmonary edema. Recommend correlation with clinical findings and follow-up until resolution. Pleural spaces: No pneumothorax. Heart/Mediastinum: The heart size is at the upper limit of normal. The mediastinal contour is normal. The trachea is midline. Bones/joints: No acute osseous abnormalities seen. XR/XR chest 1V portable [id number] IMPRESSION: Mild bilateral perihilar interstitial opacities with some bilateral basilar airspace opacities. Small bilateral pleural effusions. These findings may represent multifocal pneumonia with associated pulmonary edema. Recommend correlation with clinical findings and follow-up until resolution.
[2022-01-23 06:04] VITALS: BP 117/82; PULSE 90; RESP 26; TEMP 36.4; O2SAT 98; BMI 20.5
--- NOTE | 2022-01-23 06:06 | ECG_ITS ---
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 Measurements Intervals [place] Rate: 85 P: 44 MT: 145 QRS: -24 QRSD: 112 T: 112 QT: 377 QTc: 451 Interpretive Statements SINUS RHYTHM WITH OCCASIONAL VENTRICULAR PREMATURE COMPLEXES SEPTAL MYOCARDIAL INFARCTION , OF INDETERMINATE AGE [40+ ms Q WAVE IN V1/V2] LATERAL MYOCARDIAL INFARCTION , PROBABLY RECENT [40+ ms Q WAVE AND/OR ST/T ABNORMALITY IN I/aVL/V5/V6] ACUTE [place] Compared to ECG 07/08/2021 02:06:27 Ventricular premature complex(es) now present Sinus tachycardia no longer present Left-axis deviation no longer present Right bundle-branch block no longer present Myocardial infarct finding still present Electronically Signed On 01-23-2022 19:06:38 CDT by Boubacar Jasso M.D. [id number]
[2022-01-23 06:08] VITALS: BP 113/62; PULSE 89; RESP 25; O2SAT 100
[2022-01-23] MEDS: ipratropium-albuterol 3 mL Neb INHALATION (06:25)
[2022-01-23 06:29] VITALS: PULSE 94; RESP 28; O2SAT 100
--- NOTE | 2022-01-23 06:30 | ED_ITS ---
HPI - SOB/Dyspnea General: Chief Complaint: Shortness of Breath/Dyspnea Stated Complaint: SOB Time Seen by Provider: 01/23/22 05:57 Source: patient Mode of arrival: ambulatory History of Present Illness: HPI Narrative: 56-year-old female who presents emergency room with complaint of shortness of breath. Patient has a history of coronary artery disease had a STEMI earlier this year resolved. Severe global hypokinesis with an EF of 20 to 25%. She is complaining of severe shortness of breath with orthopnea began overnight. She also has a history of COPD unfortunately continues to smoke. She recently ran out of her Advair Diskus inhaler. She is not having any chest pain at this time. Initial EKG when compared to previous EKGs does not show significant change. She denies any fever sweats or chills. Patient is complaining of shortness of breath however when she first arrived her oxygen sats are in the upper 90s at 90% on room air MD elicited complaint: shortness of breath and cough Pertinent past history: COPD and congestive heart failure Onset (ago): hour(s) Timing: constant Severity: severe Exacerbating factors: lying flat, exertion and coughing Relieving factors: oxygen, rest, bronchodilators and upright position Known history of: COPD and congestive heart failure Associated symptoms: Reports chest congestion, cough, lightheadedness and orthopnea; Deny abdominal pain, chest pain, diaphoresis, dizziness, extremity pain, fev er(s), hemoptysis, myalgias, nausea, palpitations, paresthesias, polydipsia, polyuria, rash, sense of impending doom, syncope or vomiting Treatment prior to arrival: none Review of Systems Const: Denies: fever(s), chills, fatigue, malaise or diaphoresis ENMT: Denies: throat pain, ear or mastoid pain, nasal discharge or nasal congestion Card: Reports: lightheadedness and orthopnea; Denies: chest pain, palpitations or syncope Resp: Reports: dyspnea and chest congestion; Denies: productive cough, non-productive cough, wheezing or hemoptysis GI: Denies: abdominal pain, nausea or vomiting : Denies: flank pain, difficulty voiding, dysuria, urinary frequency or urinary urgency Musc: Denies: extremity pain Skin/Breast: Denies: rash or pruritus Neuro: Denies: dizziness Endo: Denies: polyuria or polydipsia [facility] ED PFSH: Medical History (Updated 01/23/22 @ 08:31 by Jersey Lloyd DO) Acute exacerbation of chronic obstructive airways disease Acute hypoxemic respiratory failure Atherosclerosis of coronary artery Dyspnea on exertion Hypoxia Ischemic cardiomyopathy Orthopnea Ovarian cyst STEMI (ST elevation myocardial infarction) Tobacco abuse Surgical History H/O tubal ligation H/O: hysterectomy History of appendectomy History of laparotomy Family History Other CHF (congestive heart failure) Social History Smoking and tobacco status: current every day smoker Alcohol intake: never Lives independently: Yes Household members: significant other Marital status: Life Partner Current occupational status: disabled Physical Exam Const: COMMON NORMALS: no acute distress GENERAL APPEARANCE: cooperative and comfortable ORIENTATION/CONSCIOUSNESS: Yes awake, Yes oriented to person, Yes oriented to place and Yes oriented to time HENMT: COMMON NORMALS: normocephalic, atraumatic and hearing grossly normal bilaterally HEAD & SCALP: normocephalic and atraumatic Resp: COMMON NORMALS: normal respiratory effort, No retractions and No use of accessory muscles AUSCULTATION: crackles and wheezes Cardio: COMMON NORMALS: regular rate, regular rhythm and No murmurs present (Cardio) RATE: regular rate RHYTHM: regular rhythm GI: COMMON NORMALS: Soft to palpation and No hepatosplenomegaly present AUSCULTATION: Yes normoactive bowel sounds PALPATION: Yes Soft to palpation, No Tenderness to palpation present (GI), No Guarding due to palpation present (GI) and Yes No hepatosplenomegaly present Extremity: COMMON NORMALS: normal to inspection, capillary refill normal, no clubbing, cyanosis or edema, no calf tenderness and no pedal edema Neuro: SENSORIUM/ORIENTATION: Yes oriented to person, Yes oriented to place and Yes oriented to time Skin: COMMON NORMALS: no rashes or lesions noted GENERAL SKIN EXAM: no rashes or lesions noted Course Vital Signs: Vital signs: Vital Signs Temperature 97.6 F 01/23/22 06:04 Pulse Rate 88 01/23/22 08:46 Respiratory Rate 24 H 01/23/22 07:38 Blood Pressure 111/78 01/23/22 08:46 Pulse Oximetry 99 01/23/22 08:46 Oxygen Delivery Me thod 01/23/22 08:46 Oxygen Flow Rate 2 01/23/22 06:29 MDM - SOB/Dyspnea Medical Decision Making Patient ran out of her Lasix 3 days ago. She we gave her Lasix here in the ER 40 mg IV and she had significant diuresis and noticeable improvement with her breathing. We will go and discharge her home put her on Lasix 40 daily for 3 days then decrease to 20 daily. Medical Records I reviewed the patient's medical records. Lab Data I reviewed the patient's lab results. : 01/23/22 07:08 01/23/22 07:08 Labs/Radiology: Radiology Impressions Chest X-Ray 01/23/22 05:59 IMPRESSION: Mild bilateral perihilar interstitial opacities with some bilateral basilar airspace opacities. Small bilateral pleural effusions. These findings may represent multifocal pneumonia with associated pulmonary edema. Recommend correlation with clinical findings and follow-up until resolution. Laboratory Results WBC 6.5 10^3/uL (4.0-10.0) 01/23/22 07:08 RBC 4.21 10^6/uL (4.1-5.3) 01/23/22 07:08 Hgb 13.2 g/dL (11.5-15.3) 01/23/22 07:08 Hct 40.8 % (37.0-47.0) 01/23/22 07:08 MCV 96.9 fl (81-99) 01/23/22 07:08 MCH 31.4 pg (28.0-34.0) 01/23/22 07:08 MCHC 32.4 g/dL (30.0-36.0) 01/23/22 07:08 RDW 15.9 % (12.1-15.1) H 01/23/22 07:08 Plt Count 185 10^3/cmm (130-400) 01/23/22 07:08 MPV 10.7 fL (7.4-10.4) H 01/23/22 07:08 Neut % (Auto) 74.7 % 01/23/22 07:08 Lymph % (Auto) 18.8 % 01/23/22 07:08 Powell % (Auto) 4.7 % 01/23/22 07:08 Eos % (Auto) 0.9 % 01/23/22 07:08 Baso % (Auto) 0.6 % 01/23/22 07:08 Neut # (Auto) 4.82 10^3/uL (1.8-7.7) 01/23/22 07:08 Lymph # (Auto) 1.2 10^3/uL (0.8-4.8) 01/23/22 07:08 Powell # (Auto) 0.3 10^3/uL (0.2-0.9) 01/23/22 07:08 Eos # (Auto) 0.1 10^3/uL (0.0-0.8) 01/23/22 07:08 Baso # (Auto) 0.0 10^3/uL (0.0-0.1) 01/23/22 07:08 Nucleated RBC % (auto) 0 % 01/23/22 07:08 Nucleated RBCs # 0.0 /100WBC 01/23/22 07:08 Sodium 137 mmol/L (136-145) 01/23/22 07:08 Potassium 4.2 mmol/L (3.5-5.1) 01/23/22 07:08 Chloride 101 mmol/L (98-107) 01/23/22 07:08 Carbon Dioxide 26 mmol/L (22-29) 01/23/22 07:08 Anion Gap 14.2 (5-19) 01/23/22 07:08 BUN 17 mg/dL (6-20) 01/23/22 07:08 Creatinine 0.8 mg/dL (0.5-0.9) 01/23/22 07:08 GFR Calculation 73.7 mL/min (90-130) L 01/23/22 07:08 Glucose 104 mg/dL (65-115) 01/23/22 07:08 Calculated Osmolality 286 mOsm/kg (285-295) 01/23/22 07:08 Calcium 9.4 mg/dL (8.5-10.5) 01/23/22 07:08 Total Bilirubin 0.8 mg/dL (0.15-1.2) 01/23/22 07:08 AST 32 U/L (0-32) 01/23/22 07:08 ALT 39 U/L (0-33) H 01/23/22 07:08 Alkaline Phosphatase 112 U/L (35-105) H 01/23/22 07:08 Troponin T Baseline 28 ng/L (0-10) H 01/23/22 07:08 NT-Pro-B Natriuret Pep 6066 pg/mL (0-125) H 01/23/22 07:08 Total Protein 6.9 g/dL (6.6-8.7) 01/23/22 07:08 Albumin 4.1 g/dL (3.5-5.2) 01/23/22 07:08 Globulin 2.8 g/dL (1.3-4.6) 01/23/22 07:08 Discharge Plan Discharge Patient Disposition: Home Clinical Impression: CHF (congestive heart failure), Ischemic cardiomyopathy Condition: Stable Prescriptions: New Lasix 20 mg tablet 20 mg PO DAILY Qty: 40 0RF Rx Instructions: Take 2 tablets daily for 3 days then resume 1 tablet daily. No Action aspirin 81 mg tablet,delayed release (DR/EC) 81 mg PO DAILY Qty: 90 4RF atorvastatin 40 mg tablet 40 mg PO BEDTIME Qty: 90 3RF clopidogrel 75 mg tablet 75 mg PO DAILY Qty: 90 3RF Lasix 20 mg tablet 20 mg PO QAM Qty: 90 3RF lisinopril 2.5 mg tablet 2.5 mg PO DAILY Qty: 90 3RF metoprolol succinate 25 mg tablet extended release 24 hr 12.5 mg PO DAILY Qty: 45 3RF potassium chloride 10 mEq tablet extended release 10 meq PO DAILY Qty: 90 4RF pantoprazole [Protonix] [address] for susp in packet 40 mg PO DAILY 30 Days Qty: 30 4RF fluticasone propion-salmeterol [Advair Diskus] 250-50 mcg/dose blister with device 1 inh inhalation BID Qty: 60 0RF albuterol sulfate 90 mcg/actuation HFA aerosol inhaler 2 inh INHALATION Q4H PRN (Reason: shortness of breath or wheezing) Qty: 18 0RF Atrovent HFA 17 mcg/actuation HFA aerosol inhaler 2 inh inhalation Q12H PRN (Reason: shortness of breath or wheezing) Qty: 12.9 3RF Rx Instructions: administer with spacer Women's 50 Plus Multivitamin 400 mcg-500 mg calcium-20 mcg Tablet 1 tab PO DAILY Discharge Orders: Discharge ED (Routine); Ordered 01/23/22 Ordered By: Jersey Lloyd Referrals: Nisa David RN [Primary Care Provider] - Discharge Diet: Usual diet Discharge Activity: Resume usual activity Patient Instructions: Opioid Safety, Pain Management Activity Restrictions/Additional Instructions: Follow-up with your doctor within the next week. Coding Level of Care Code ED Hairspring Ii Inspector for Chg Fwd Exam Detailed
[2022-01-23 06:36] VITALS: PULSE 88
[2022-01-23] MEDS: FUROsemide 10 mg/mL SDV 4mL 40 MG IVP (06:36)
[2022-01-23 06:40] LABS: ABG PCO2 34.8 mmHg (35-45); ABG PH Result 7.44 (7.35-7.45); Alveolar-Arterial Oxygen Gradi 8.7 mmHg (5-10); Blood Gas Allen Test Pos; Blood Gas Operator Identificat MONRO; Blood Gas Sample Site Radial, right; Blood Gas Sample Type Arterial; Carboxyhemoglobin 3.6 %THgb (0.4-20.1); HCO3 ABG 23.7 mmol/L (22-26); HGB O2 Sat 93.9 % (95-100); Ionized Calcium Level - ABG 1.2 mmol/L (1.1-1.4); Methemoglobin 0.8 % (0.4-1.5); Oxygen Device NC; Oxygen Saturation ABG 98.2; Potassium Level - ABG 3.9 mmol/L (3.5-5.0); Total Hemoglobin 12.1 g/dL (12-16)
[2022-01-23 07:15] LABS: Basophils % 0.6 %; Eosinophils # 0.1 10^3/uL (0.0-0.8); Eosinophils % 0.9 %; Hematocrit 40.8 % (37.0-47.0); Hemoglobin 13.2 g/dL (11.5-15.3); Lymphocytes # 1.2 10^3/uL (0.8-4.8); Lymphocytes % 18.8 %; Mean Corpuscular HGB Conc 32.4 g/dL (30.0-36.0); Mean Corpuscular Hemoglobin 31.4 pg (28.0-34.0); Mean Corpuscular Volume 96.9 fl (81-99); Mean Platelet Volume 10.7 fL (7.4-10.4); Monocytes # 0.3 10^3/uL (0.2-0.9); Monocytes % 4.7 %; Neutrophils # 4.82 10^3/uL (1.8-7.7); Neutrophils % 74.7 %; Nucleated Red Blood Cells % 0 %; Platelet Count 185 10^3/cmm (130-400); Red Blood Count 4.21 10^6/uL (4.1-5.3); Red Cell Distribution Width 15.9 % (12.1-15.1); White Blood Count 6.5 10^3/uL (4.0-10.0)
[2022-01-23 07:38] VITALS: PULSE 88; RESP 24; O2SAT 100
[2022-01-23 07:41] LABS: Alanine Aminotransferase 39 U/L (0-33); Albumin Level 4.1 g/dL (3.5-5.2); Alkaline Phosphatase 112 U/L (35-105); Anion Gap 14.2 (5-19); Aspartate Amino Transferase 32 U/L (0-32); Blood Urea Nitrogen 17 mg/dL (6-20); Calcium 9.4 mg/dL (8.5-10.5); Carbon Dioxide 26 mmol/L (22-29); Chloride 101 mmol/L (98-107); Globulin 2.8 g/dL (1.3-4.6); Glomerular Filtration Rate 73.7 mL/min (90-130); Glucose 104 mg/dL (65-115); NT Pro B Type Natriuretic Pept 6066 pg/mL (0-125); Osmolality Calculated 286 mOsm/kg (285-295); Potassium 4.2 mmol/L (3.5-5.1); Sodium 137 mmol/L (136-145); Total Bilirubin 0.8 mg/dL (0.15-1.2); Total Protein 6.9 g/dL (6.6-8.7)
[2022-01-23 08:00] LABS: Troponin(5th) Baseline 28 ng/L (0-10)
[2022-01-23 08:46] VITALS: BP 111/78; PULSE 88; O2SAT 99
== END 2022-01-23 08:45 | disposition home or self-care (01) ==
PROVIDERS: Emergency Provider Family Medicine
DX: I11.0 Hypertensive heart disease with heart failure (principal); I50.9 Heart failure, unspecified; I25.5 Ischemic cardiomyopathy; Z79.02 Long term (current) use of antithrombotics/antiplatelets; Z79.82 Long term (current) use of aspirin; J44.9 Chronic obstructive pulmonary disease, unspecified; I25.10 Atherosclerotic heart disease of native coronary artery without angina pectoris; I25.2 Old myocardial infarction; F17.210 Nicotine dependence, cigarettes, uncomplicated
CPT/HCPCS: 36415; 36600; 71045; 80051; 80053; 82330; 82805; 83880; 84484; 85025; 93005; 94640; 96374; 96375; 99285; J1940; J2930

== ENCOUNTER 2022-02-26 06:00 | Outpatient (CLI) | payer MEDICAID, SELFPAY | END 2022-02-26 06:01 | disposition home or self-care (01) | LOC: LAB 05-23 12:15 | PROVIDERS: Visit Provider Thoracic Surgery (Cardiothoracic Vascular Surgery) | DX: Z01.89 Encounter for other specified special examinations (principal) | CPT/HCPCS: 80048; 81003; 85025 ==

== ENCOUNTER 2022-03-30 23:29 | Emergency (ER) | payer MEDICAID, SELFPAY ==
--- NOTE | 2022-03-30 23:31 | XRR_ITS ---
PROCEDURE INFORMATION: Exam: XR Chest Exam date and time: 03/30/2022 11:49 PM Age: 56 years old Clinical indication: Shortness of breath; Prior surgery; Surgery type: Coronary stents; Patient HX: C/O SOB. History of chf. TECHNIQUE: Imaging protocol: Radiologic exam of the chest. Views: 1 view. COMPARISON: CR (CHEST, ) 01/23/2022 6:09 AM FINDINGS: Lungs: Advanced emphysematous lung disease. Chronic reticular changes of interstitium. No localized pulmonary consolidation. Pleural spaces: Small pleural effusions. Negative for pneumothorax. Heart/Mediastinum: Moderate cardiomegaly. Bones/joints: Unremarkable. XR/XR chest 1V portable [id number] IMPRESSION: 1. Chronic pleural effusions. 2. Advanced pulmonary emphysema. 3. Dilated cardiomyopathy.
[2022-03-30 23:36] VITALS: BP 135/87; PULSE 111; RESP 19; TEMP 36.4; O2SAT 97; BMI 21.2
--- NOTE | 2022-03-30 23:36 | ECG_ITS ---
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 Measurements Intervals [place] Rate: 102 P: 72 [place]: 152 QRS: -63 QRSD: 116 T: 100 QT: 352 QTc: 460 Interpretive Statements SINUS TACHYCARDIA POSSIBLE RIGHT VENTRICULAR CONDUCTION DELAY [RSR (QR) IN V1/V2] LEFT ANTERIOR FASCICULAR BLOCK [QRS AXIS <= -45, QR IN I, RS IN II] POSSIBLE ANTEROLATERAL MYOCARDIAL INFARCTION , OF INDETERMINATE AGE Compared to ECG 01/23/2022 06:06:44 Left anterior fascicular block now present Sinus rhythm no longer present Ventricular premature complex(es) no longer present Myocardial infarct finding still present Electronically Signed On 03-31-2022 12:56:58 OPERATOR AND TRUCK DRIVER by Luna Sandoval M.D. [id number]
[2022-03-30 23:39] VITALS: PULSE 100; RESP 18; O2SAT 97
--- NOTE | 2022-03-30 23:39 | ED_ITS ---
HPI - SOB/Dyspnea General: Chief Complaint: Shortness of Breath/Dyspnea Stated Complaint: SOB/anxiety Time Seen by Provider: 03/30/22 23:31 Source: patient Mode of arrival: ambulatory Limitations: no limitations History of Present Illness: HPI Narrative: 56-year-old female states she does have a history of congestive heart failure states she ran out of her Lasix 4 days ago per EMS patient had been pulled over by the police they were actually running from the police patient does not have a over the road driver's license she was driving her significant other was in the car and got arrested for methamphetamine possession she states that all this had made her feel quite anxious to she is feeling anxious increasing her dyspnea having some mild pains. States she feels improved currently she is in no distress here. Associated symptoms: Deny abdominal pain, chest pain, fever(s), nausea or vomiting Review of Systems Const: Denies: fever(s), chills, body aches or change in appetite Eyes: Denies: blurry vision or eye discomfort ENMT: Denies: throat pain or dental pain Card: Denies: chest pain Resp: Reports: dyspnea GI: Denies: abdominal pain, nausea, vomiting or diarrhea : Denies: dysuria Musc: Denies: neck pain or back pain Skin/Breast: Denies: rash Neuro: Denies: headache(s) Psych: Denies: depression Wally/Lymph: Denies: easy bruising All/Imm: Denies: urticaria PFSH ED PFSH: Medical History Acute exacerbation of chronic obstructive airways disease Acute hypoxemic respiratory failure Atherosclerosis of coronary artery Dyspnea on exertion Hypoxia Ischemic cardiomyopathy Orthopnea Ovarian cyst STEMI (ST elevation myocardial infarction) Tobacco abuse Surgical History H/O tubal ligation H/O: hysterectomy History of appendectomy History of laparotomy Family History Other CHF (congestive heart failure) Social History Smoking and tobacco status: current every day smoker Alcohol intake: never Lives independently: Yes Household members: significant other Marital status: Life Partner Current occupational status: disabled Physical Exam Const: COMMON NORMALS: no acute distress, patient oriented x3 and healthy appearing HENMT: COMMON NORMALS: normocephalic and atraumatic HEAD & SCALP: normocephalic and atraumatic Eye: COMMON NORMALS: Equal, round and reactive pupils present and EOMs intact bilaterally PUPIL: Yes Equal, round and reactive pupils present Neck/C-Spine: COMMON NORMALS: full ROM and supple Chest: COMMONS NORMALS: normal inspection of the chest and normal palpation of entire chest wall Resp: COMMON NORMALS: normal respiratory effort, No retractions, No use of accessory muscles and clear to auscultation bilaterally AUSCULTATION: clear to auscultation bilaterally Cardio: COMMON NORMALS: regular rate, regular rhythm and No murmurs present (Cardio) RATE: regular rate RHYTHM: regular rhythm GI: COMMON NORMALS: Normal to inspection, nondistended, normoactive bowel sounds present, Soft to palpation, non-tender and no masses PALPATION: Yes Soft to palpation Extremity: COMMON NORMALS: normal to inspection and full ROM Neuro: COMMON NORMALS: patient oriented x3, moves all extremities and no focal motor deficits Psych: COMMON NORMALS: mental status grossly normal, Normal thought process present and cooperative THOUGHT PROCESS: Normal thought process present Skin: COMMON NORMALS: no rashes or lesions noted and no wounds GENERAL SKIN EXAM: no rashes or lesions noted Course Vital Signs: Vital signs: Vital Signs Temperature 97.6 F 03/30/22 23:36 Pulse Rate 100 03/31/22 00:19 Respiratory Rate 23 H 03/31/22 00:19 Blood Pressure 136/80 03/31/22 00:19 Pulse Oximetry 95 03/31/22 00:19 Oxygen Delivery Mn thod 03/30/22 23:39 MDM - SOB/Dyspnea Medical Decision Making Patient presents here with dyspnea BNP slightly elevated she feels much improved here she is in no distress patient given IV Lasix here she is stable for discharge she is follow-up with PCP and return if worsening. Lab Data 03/30/22 23:39 03/30/22 23:39 Labs/Radiology: Radiology Impressions Chest X-Ray 03/30/22 23:31 IMPRESSION: 1. Chronic pleural effusions. 2. Advanced pulmonary emphysema. 3. Dilated cardiomyopathy. Laboratory Results WBC 6.4 10^3/uL (4.0-10.0) 03/30/22 23:39 RBC 4.21 10^6/uL (4.1-5.3) 03/30/22 23:39 Hgb 13.1 g/dL (11.5-15.3) 03/30/22 23:39 Hct 41.5 % (37.0-47.0) 03/30/22 23:39 MCV 98.6 fl (81-99) 03/30/22 23:39 MCH 31.1 pg (28.0-34.0) 03/30/22 23:39 MCHC 31.6 g/dL (30.0-36.0) 03/30/22 23:39 RDW 15.3 % (12.1-15.1) H 03/30/22 23:39 Plt Count 216 10^3/cmm (130-400) 03/30/22 23:39 MPV 11.2 fL (7.4-10.4) H 03/30/22 23:39 Neut % (Auto) 72.4 % 03/30/22 23:39 Lymph % (Auto) 20.7 % 03/30/22 23:39 [place] % (Auto) 5.8 % 03/30/22 23:39 Eos % (Auto) 0.3 % 03/30/22 23:39 Baso % (Auto) 0.6 % 03/30/22 23:39 Neut # (Auto) 4.66 10^3/uL (1.8-7.7) 03/30/22 23:39 Lymph # (Auto) 1.3 10^3/uL (0.8-4.8) 03/30/22 23:39 [place] # (Auto) 0.4 10^3/uL (0.2-0.9) 03/30/22 23:39 Eos # (Auto) 0.0 10^3/uL (0.0-0.8) 03/30/22 23:39 Baso # (Auto) 0.0 10^3/uL (0.0-0.1) 03/30/22 23:39 Nucleated RBC % (auto) 0 % 03/30/22 23:39 Nucleated RBCs # 0.0 /100WBC 03/30/22 23:39 Sodium 140 mmol/L (136-145) 03/30/22 23:39 Potassium 5.0 mmol/L (3.5-5.1) 03/30/22 23:39 Chloride 104 mmol/L (98-107) 03/30/22 23:39 Carbon Dioxide 25 mmol/L (22-29) 03/30/22 23:39 Anion Gap 16.0 (5-19) 03/30/22 23:39 BUN 25 mg/dL (6-20) H 03/30/22 23:39 Creatinine 1.2 mg/dL (0.5-0.9) H 03/30/22 23:39 GFR Calculation 46.1 mL/min (90-130) L 03/30/22 23:39 Glucose 130 mg/dL (65-115) H 03/30/22 23:39 Calculated Osmolality 296 mOsm/kg (285-295) H 03/30/22 23:39 Calcium 9.3 mg/dL (8.5-10.5) 03/30/22 23:39 Total Bilirubin 0.3 mg/dL (0.15-1.2) 03/30/22 23:39 AST 37 U/L (0-32) H 03/30/22 23:39 ALT 46 U/L (0-33) H 03/30/22 23:39 Alkaline Phosphatase 117 U/L (35-105) H 03/30/22 23:39 Troponin T Baseline 26 ng/L (0-10) H 03/30/22 23:39 NT-Pro-B Natriuret Pep 68656 pg/mL (0-125) H 03/30/22 23:39 Total Protein 6.7 g/dL (6.6-8.7) 03/30/22 23:39 Albumin 3.9 g/dL (3.5-5.2) 03/30/22 23:39 Globulin 2.8 g/dL (1.3-4.6) 03/30/22 23:39 EKG Data EKG 1: I personally reviewed and interpreted this EKG as follows: EKG Interpretation Date: 03/30/22 EKG interpretation time: 23:36 Interpretation: sinus tach hr [address] or t wave abnomalities qrs 116 qtc 411 Discharge Plan Discharge Patient Disposition: Home Clinical Impression: CHF (congestive heart failure) Condition: Stable Prescriptions: No Action aspirin 81 mg tablet,delayed release (DR/EC) 81 mg PO DAILY Qty: 90 4RF atorvastatin 40 mg tablet 40 mg PO BEDTIME Qty: 90 3RF lisinopril 2.5 mg tablet 2.5 mg PO DAILY Qty: 90 3RF potassium chloride 10 mEq tablet extended release 10 meq PO DAILY Qty: 90 4RF clopidogrel 75 mg tablet 75 mg PO DAILY Qty: 90 3RF Lasix 20 mg tablet 20 mg PO QAM Qty: 90 3RF fluticasone propion-salmeterol [Advair Diskus] 250-50 mcg/dose blister with device 1 inh inhalation BID Qty: 60 0RF albuterol sulfate 90 mcg/actuation HFA aerosol inhaler 2 inh INHALATION Q4H PRN (Reason: shortness of breath or wheezing) Qty: 18 0RF Atrovent HFA 17 mcg/actuation HFA aerosol inhaler 2 inh inhalation Q12H PRN (Reason: shortness of breath or wheezing) Qty: 12.9 3RF Rx Instructions: administer with spacer Women's 50 Plus Multivitamin 400 mcg-500 mg calcium-20 mcg Tablet 1 tab PO DAILY Discharge Orders: Discharge ED (Routine); Ordered 03/31/22 Ordered By: Jorge Daniel Referrals: Nisa David RN [Registered Nurse] - 1-3 days Discharge Diet: Advance as tolerated Discharge Activity: Resume usual activity Patient Instructions: Heart Failure (ED) Coding Level of Care Code ED Blower Insulator for Liseth Fwish Exam Comprehensive
[2022-03-30] MEDS: LORazepam 1 mg Tablet PO (23:46)
[2022-03-30 23:51] LABS: Basophils % 0.6 %; Eosinophils % 0.3 %; Hematocrit 41.5 % (37.0-47.0); Hemoglobin 13.1 g/dL (11.5-15.3); Lymphocytes # 1.3 10^3/uL (0.8-4.8); Lymphocytes % 20.7 %; Mean Corpuscular HGB Conc 31.6 g/dL (30.0-36.0); Mean Corpuscular Hemoglobin 31.1 pg (28.0-34.0); Mean Corpuscular Volume 98.6 fl (81-99); Mean Platelet Volume 11.2 fL (7.4-10.4); Monocytes # 0.4 10^3/uL (0.2-0.9); Monocytes % 5.8 %; Neutrophils # 4.66 10^3/uL (1.8-7.7); Neutrophils % 72.4 %; Nucleated Red Blood Cells % 0 %; Platelet Count 216 10^3/cmm (130-400); Red Blood Count 4.21 10^6/uL (4.1-5.3); Red Cell Distribution Width 15.3 % (12.1-15.1); White Blood Count 6.4 10^3/uL (4.0-10.0)
[2022-03-31 00:15] LABS: Troponin(5th) Baseline 26 ng/L (0-10)
[2022-03-31 00:19] VITALS: BP 136/80; PULSE 100; RESP 23; O2SAT 95
[2022-03-31 00:23] LABS: Alanine Aminotransferase 46 U/L (0-33); Albumin Level 3.9 g/dL (3.5-5.2); Alkaline Phosphatase 117 U/L (35-105); Aspartate Amino Transferase 37 U/L (0-32); Blood Urea Nitrogen 25 mg/dL (6-20); Calcium 9.3 mg/dL (8.5-10.5); Carbon Dioxide 25 mmol/L (22-29); Chloride 104 mmol/L (98-107); Globulin 2.8 g/dL (1.3-4.6); Glomerular Filtration Rate 46.1 mL/min (90-130); Glucose 130 mg/dL (65-115); NT Pro B Type Natriuretic Pept 14746 pg/mL (0-125); Osmolality Calculated 296 mOsm/kg (285-295); Sodium 140 mmol/L (136-145); Total Bilirubin 0.3 mg/dL (0.15-1.2); Total Protein 6.7 g/dL (6.6-8.7)
[2022-03-31] MEDS: FUROsemide 10 mg/mL SDV 10mL 60 MG IVP (00:42)
[2022-03-31 00:52] VITALS: BP 130/94; PULSE 101; RESP 23; O2SAT 94
== END 2022-03-31 00:49 | disposition home or self-care (01) ==
PROVIDERS: Emergency Provider Emergency Medicine
DX: I50.9 Heart failure, unspecified (principal)
CPT/HCPCS: 71045; 80053; 83880; 84484; 85025; 93005; 96374; 99285; J1940

== ENCOUNTER 2022-04-02 13:38 | Emergency (ER) | payer MEDICAID, SELFPAY ==
[2022-04-02 13:47] VITALS: BP 128/84; PULSE 111; RESP 18; TEMP 36.8; O2SAT 97; BMI 20.5
--- NOTE | 2022-04-02 13:55 | ECG_ITS ---
[facility] Test Date: 2022-04-02 Pat Name: Melissa Beniot Department: Room: Gender: Female Throw Out Clerk: : 1965 Requested By: Jersey Graff Order Number: [id number] Basil MD: Denver Magdaleno M.D. Measurements Intervals [place] Rate: 107 P: 54 OR: 142 QRS: -54 QRSD: 113 T: 101 QT: 343 QTc: 458 Interpretive Statements SINUS TACHYCARDIA LOW QRS VOLTAGE IN PRECORDIAL LEADS [QRS DEFLECTION < 1.0 mV IN CHEST LEADS] INCOMPLETE RIGHT BUNDLE BRANCH BLOCK [90+ ms QRS DURATION, TERMINAL R IN V1/V2, 40+ ms S IN I/aVL/V4/V5/V6] LEFT ANTERIOR FASCICULAR BLOCK [QRS AXIS <= -45, QR IN I, RS IN II] POSSIBLE ANTEROLATERAL MYOCARDIAL INFARCTION , OF INDETERMINATE AGE [30 ms Q WAVE IN I/aVL/V3-V6] Compared to ECG 03/30/2022 23:36:48 Low QRS voltage now present Incomplete right bundle-branch block now present Myocardial infarct finding still present Electronically Signed On 04-02-2022 15:29:55 ONCOLOGY PHYSICIAN ASSISTANT by Denver Magdaleno M.D. [id number]
--- NOTE | 2022-04-02 14:21 | XR_ITS ---
WS: [id number] EXAMINATION: XR chest 1V portable [id number] REASON FOR EXAM: chest pain/SOB COMPARISON: 03/30/2022 ORDER DATE: 04/02/2022 2:21 PM TECHNIQUE: A single, portable frontal chest x-ray was obtained. X-RAY FINDINGS: There is a small mosaic pattern of infiltrate in the lateral right upper lobe that ap pears new compared with the prior study. There continue to be diffuse chronic interstitial lung bhagat es and generalized changes of emphysema. Similar bilateral pleural effusions are demonstrated. Cardio megaly remains as prior. XR/XR chest 1V portable [id number] IMPRESSION: New small right upper lobe infiltrate.
[2022-04-02 15:13] LABS: Basophils % 0.3 %; Hematocrit 40.4 % (37.0-47.0); Hemoglobin 12.8 g/dL (11.5-15.3); Lymphocytes # 0.4 10^3/uL (0.8-4.8); Lymphocytes % 6.5 %; Mean Corpuscular HGB Conc 31.7 g/dL (30.0-36.0); Mean Corpuscular Hemoglobin 30.5 pg (28.0-34.0); Mean Corpuscular Volume 96.2 fl (81-99); Mean Platelet Volume 11.1 fL (7.4-10.4); Monocytes # 0.3 10^3/uL (0.2-0.9); Monocytes % 5.2 %; Neutrophils # 5.69 10^3/uL (1.8-7.7); Neutrophils % 87.5 %; Nucleated Red Blood Cells % 0 %; Platelet Count 190 10^3/cmm (130-400); Red Cell Distribution Width 15.7 % (12.1-15.1); White Blood Count 6.5 10^3/uL (4.0-10.0)
--- NOTE | 2022-04-02 15:32 | W.ED.SOB ---
Documented by User: Jersey Lloyd DO 04/03/22 13:52 HPI - SOB/Dyspnea General: Chief Complaint: Shortness of Breath/Dyspnea Stated Complaint: SOB Time Seen by Provider: 04/02/22 15:32 Source: patient Mode of arrival: ambulatory History of Present Illness: HPI Narrative: 48-year-old female presents emergency room complaining of shortness of breath. She had some mild chest discomfort mostly has been short of breath she does have a history of coronary artery disease. She smokes as well. She is not normally on oxygen. When I came to see her she was slumped in bed but she awakes easily and responds to all questions provides good history. She MD elicited complaint: shortness of breath Pertinent past history: COPD Onset (ago): hour(s) Timing: intermittent Severity: mild Exacerbating factors: nothing Relieving factors: nothing Known history of: COPD Associated symptoms: Reports chest congestion, chest pain and cough; Deny abdominal pain, diaphoresis, dizziness, extremity pain, fever(s), hemoptysis, lightheadedness, myalgias, nausea, orthopnea, palpitations, paresthesias, polydipsia, polyuria, rash, sense of impending doom, syncope or vomiting Treatment prior to arrival: none Review of Systems Const: Reports: fatigue; Denies: fever(s), chills, malaise or diaphoresis ENMT: Denies: throat pain, ear or mastoid pain, nasal discharge or nasal congestion Card: Reports: chest pain and edema; Denies: palpitations, irregular heart rhythm, lightheadedness, syncope or orthopnea Resp: Reports: dyspnea, non-productive cough, wheezing and chest congestion; Denies: hemoptysis GI: Denies: abdominal pain, nausea or vomiting : Denies: flank pain, difficulty voiding, dysuria, urinary frequency or urinary urgency Musc: Denies: extremity pain Skin/Breast: Denies: rash or pruritus Neuro: Denies: dizziness Endo: Denies: polyuria or polydipsia PFSH ED PFSH: Medical History Acute exacerbation of chronic obstructive airways disease Acute hypoxemic respiratory failure Atherosclerosis of coronary artery Dyspnea on exertion Hypoxia Ischemic cardiomyopathy Orthopnea Ovarian cyst STEMI (ST elevation myocardial infarction) Tobacco abuse Surgical History H/O tubal ligation H/O: hysterectomy History of appendectomy History of laparotomy Family History Other CHF (congestive heart failure) Social History Smoking and tobacco status: current every day smoker Alcohol intake: never Lives independently: Yes Household members: significant other Marital status: Life Partner Current occupational status: disabled Physical Exam Const: GENERAL APPEARANCE: cooperative and comfortable ORIENTATION/CONSCIOUSNESS: Yes awake, Yes oriented to person, Yes oriented to place and Yes oriented to time HENMT: COMMON NORMALS: normocephalic, atraumatic, hearing grossly normal bilaterally, external ears normal, EAC's normal, TM's normal bilaterally and Normal nasal mucous membranes and turbinates present HEAD & SCALP: normocephalic and atraumatic NOSE: Normal nasal mucous membranes and turbinates present EXTERNAL EAR: Yes external ears normal EXTERNAL AUDITORY CANAL: EAC's normal TYMPANIC MEMBRANE: TM's normal bilaterally Eye: COMMON NORMALS: Equal, round and reactive pupils present, EOMs intact bilaterally, conjunctivae normal and no scleral icterus CONJUNCTIVA: Yes conjunctivae normal PUPIL: Yes Equal, round and reactive pupils present Neck/C-Spine: COMMON NORMALS: full ROM, no lymphadenopathy, supple and no JVD Lymph: LYMPHATIC: no lymphadenopathy noted and no lymphedema noted Resp: COMMON NORMALS: normal respiratory effort, No retractions and No use of accessory muscles AUSCULTATION: wheezes Cardio: COMMON NORMALS: no JVD, regular rate, regular rhythm and No murmurs present (Cardio) RATE: regular rate RHYTHM: regular rhythm GI: COMMON NORMALS: Soft to palpation and No hepatosplenomegaly present AUSCULTATION: Yes normoactive bowel sounds PALPATION: Yes Soft to palpation, No Tenderness to palpation present (GI), No Guarding due to palpation present (GI) and Yes No hepatosplenomegaly present Extremity: COMMON NORMALS: normal to inspection, capillary refill normal and no calf tenderness GENERAL: Yes edema (1+ edema lower extremities bilaterally) Neuro: SENSORIUM/ORIENTATION: Yes oriented to person, Yes oriented to place and Yes oriented to time Skin: COMMON NORMALS: no rashes or lesions noted GENERAL SKIN EXAM: no rashes or lesions noted Course Vital Signs: Vital signs: Vital Signs Temperature 98.3 F 04/02/22 16:45 Pulse Rate 114 H 04/02/22 18:34 Respiratory Rate 22 H 04/02/22 18:25 Blood Pressure 128/84 04/02/22 16:45 Pulse Oximetry 94 04/02/22 18:25 Oxygen Delivery Me thod 04/02/22 18:25 MDM - SOB/Dyspnea Medical Decision Making Patient seen and evaluated by myself we are waiting on second troponin. Initial EKG and troponin normal. Care signed out to Dr. Daniel at change of shift. See final notes for diagnosis and disposition. Patient presents here with dyspnea patient has been upset with the nurse and left I did not see her before she had left she eloped before I was aware and did not get to speak to her at all. Medical Records I reviewed the patient's medical records. Lab Data I reviewed the patient's lab results. 04/02/22 14:58 04/02/22 14:58 Labs/Radiology: Radiology Impressions Chest X-Ray 04/02/22 14:21 IMPRESSION: New small right upper lobe infiltrate. Laboratory Results WBC 6.5 10^3/uL (4.0-10.0) 04/02/22 14:58 RBC 4.20 10^6/uL (4.1-5.3) 04/02/22 14:58 Hgb 12.8 g/dL (11.5-15.3) 04/02/22 14:58 Hct 40.4 % (37.0-47.0) 04/02/22 14:58 MCV 96.2 fl (81-99) 04/02/22 14:58 MCH 30.5 pg (28.0-34.0) 04/02/22 14:58 MCHC 31.7 g/dL (30.0-36.0) 04/02/22 14:58 RDW 15.7 % (12.1-15.1) H 04/02/22 14:58 Plt Count 190 10^3/cmm (130-400) 04/02/22 14:58 MPV 11.1 fL (7.4-10.4) H 04/02/22 14:58 Neut % (Auto) 87.5 % 04/02/22 14:58 Lymph % (Auto) 6.5 % 04/02/22 14:58 [place] % (Auto) 5.2 % 04/02/22 14:58 Eos % (Auto) 0.0 % 04/02/22 14:58 Baso % (Auto) 0.3 % 04/02/22 14:58 Neut # (Auto) 5.69 10^3/uL (1.8-7.7) 04/02/22 14:58 Lymph # (Auto) 0.4 10^3/uL (0.8-4.8) L 04/02/22 14:58 [facility] # (Auto) 0.3 10^3/uL (0.2-0.9) 04/02/22 14:58 Eos # (Auto) 0.0 10^3/uL (0.0-0.8) 04/02/22 14:58 Baso # (Auto) 0.0 10^3/uL (0.0-0.1) 04/02/22 14:58 Nucleated RBC % (auto) 0 % 04/02/22 14:58 Nucleated RBCs # 0.0 /100WBC 04/02/22 14:58 Sodium 136 mmol/L (136-145) 04/02/22 14:58 Potassium 4.0 mmol/L (3.5-5.1) 04/02/22 14:58 Chloride 99 mmol/L (98-107) 04/02/22 14:58 Carbon Dioxide 26 mmol/L (22-29) 04/02/22 14:58 Anion Gap 15.0 (5-19) 04/02/22 14:58 BUN 13 mg/dL (6-20) 04/02/22 14:58 Creatinine 0.9 mg/dL (0.5-0.9) 04/02/22 14:58 GFR Calculation 64.3 mL/min (90-130) L 04/02/22 14:58 Glucose 116 mg/dL (65-115) H 04/02/22 14:58 Calculated Osmolality 283 mOsm/kg (285-295) L 04/02/22 14:58 Calcium 8.8 mg/dL (8.5-10.5) 04/02/22 14:58 Total Bilirubin 0.8 mg/dL (0.15-1.2) 04/02/22 14:58 AST 28 U/L (0-32) 04/02/22 14:58 ALT 30 U/L (0-33) 04/02/22 14:58 Alkaline Phosphatase 99 U/L (35-105) 04/02/22 14:58 Troponin T Baseline 29 ng/L (0-10) H 04/02/22 14:58 Troponin T 120 Minute 28.58 ng/L (0-10) H 04/02/22 17:42 Delta Troponin T -0.42 ABS# (0-10) L 04/02/22 17:42 NT-Pro-B Natriuret Pep 53459 pg/mL (0-125) H 04/02/22 14:39 Total Protein 6.2 g/dL (6.6-8.7) L 04/02/22 14:58 Albumin 3.5 g/dL (3.5-5.2) 04/02/22 14:58 Globulin 2.7 g/dL (1.3-4.6) 04/02/22 14:58 Nasal Influ A H1 2009 PCR Detected (NOT DETECT) A 04/02/22 18:56 Coronavirus 229E (PCR) Not detected (NOT DETECT) 04/02/22 16:50 Influenza A (H1) PCR Not detected (NOT DETECT) 04/02/22 18:56 Influenza A (H3) PCR Not detected (NOT DETECT) 04/02/22 18:56 Influenza Type A (PCR) Detected (NOT DETECT) A 04/02/22 18:56 Influenza Type B (PCR) Not detected (NOT DETECT) 04/02/22 18:56 SARS-CoV-2 (PCR) Not detected (NOT DETECT) 04/02/22 16:50 Discharge Plan Discharge Patient Disposition: Left Against Medical Advice Clinical Impression: Asthma with exacerbation Condition: Stable Prescriptions: No Action Lasix 20 mg tablet 20 mg PO QAM Qty: 90 3RF Women's 50 Plus Multivitamin 400 mcg-500 mg calcium-20 mcg Tablet 1 tab PO DAILY Vitamin C 500 mg Tablet 500 mg PO DAILY Vitamin D3 25 mcg (1,000 unit) Tablet 25 mcg PO DAILY potassium chloride 20 mEq tablet extended release 10 meq PO QAM clopidogrel 75 mg tablet 75 mg PO QAM aspirin 81 mg tablet,delayed release (DR/EC) 81 mg PO QAM Discharge Orders: Discharge ED (Routine); Ordered 04/02/22 Ordered By: Jorge Daniel Coding Level of Care Code ED Tower [employer] Specialist for Chg Fwd Documented by User: Jorge Daniel MD 04/02/22 18:47 HPI - SOB/Dyspnea General: Chief Complaint: Shortness of Breath/Dyspnea Stated Complaint: SOB Time Seen by Provider: 04/02/22 15:32 History of Present Illness: HPI Narrative: . PFSH ED PFSH: Medical History Acute exacerbation of chronic obstructive airways disease Acute hypoxemic respiratory failure Atherosclerosis of coronary artery Dyspnea on exertion Hypoxia Ischemic cardiomyopathy Orthopnea Ovarian cyst STEMI (ST elevation myocardial infarction) Tobacco abuse Surgical History H/O tubal ligation H/O: hysterectomy History of appendectomy History of laparotomy Family History Other CHF (congestive heart failure) Social History Smoking and tobacco status: current every day smoker Alcohol intake: never Lives independently: Yes Household members: significant other Marital status: Life Partner Current occupational status: disabled Course Vital Signs: Vital signs: Vital Signs Temperature 98.3 F 04/02/22 16:45 Pulse Rate 114 H 04/02/22 18:34 Respiratory Rate 22 H 04/02/22 18:25 Blood Pressure 128/84 04/02/22 16:45 Pulse Oximetry 94 04/02/22 18:25 Oxygen Delivery Me thod 04/02/22 18:25 MDM - SOB/Dyspnea Medical Decision Making Patient presents here with dyspnea patient has been upset with the nurse and left I did not see her before she had left she eloped before I was aware and did not get to speak to her at all. Lab Data 04/02/22 14:58 04/02/22 14:58 Labs/Radiology: Radiology Impressions Chest X-Ray 04/02/22 14:21 IMPRESSION: New small right upper lobe infiltrate. Laboratory Results WBC 6.5 10^3/uL (4.0-10.0) 04/02/22 14:58 RBC 4.20 10^6/uL (4.1-5.3) 04/02/22 14:58 Hgb 12.8 g/dL (11.5-15.3) 04/02/22 14:58 Hct 40.4 % (37.0-47.0) 04/02/22 14:58 MCV 96.2 fl (81-99) 04/02/22 14:58 MCH 30.5 pg (28.0-34.0) 04/02/22 14:58 MCHC 31.7 g/dL (30.0-36.0) 04/02/22 14:58 RDW 15.7 % (12.1-15.1) H 04/02/22 14:58 Plt Count 190 10^3/cmm (130-400) 04/02/22 14:58 MPV 11.1 fL (7.4-10.4) H 04/02/22 14:58 Neut % (Auto) 87.5 % 04/02/22 14:58 Lymph % (Auto) 6.5 % 04/02/22 14:58 [facility] % (Auto) 5.2 % 04/02/22 14:58 Eos % (Auto) 0.0 % 04/02/22 14:58 Baso % (Auto) 0.3 % 04/02/22 14:58 Neut # (Auto) 5.69 10^3/uL (1.8-7.7) 04/02/22 14:58 Lymph # (Auto) 0.4 10^3/uL (0.8-4.8) L 04/02/22 14:58 [facility] # (Auto) 0.3 10^3/uL (0.2-0.9) 04/02/22 14:58 Eos # (Auto) 0.0 10^3/uL (0.0-0.8) 04/02/22 14:58 Baso # (Auto) 0.0 10^3/uL (0.0-0.1) 04/02/22 14:58 Nucleated RBC % (auto) 0 % 04/02/22 14:58 Nucleated RBCs # 0.0 /100WBC 04/02/22 14:58 Sodium 136 mmol/L (136-145) 04/02/22 14:58 Potassium 4.0 mmol/L (3.5-5.1) 04/02/22 14:58 Chloride 99 mmol/L (98-107) 04/02/22 14:58 Carbon Dioxide 26 mmol/L (22-29) 04/02/22 14:58 Anion Gap 15.0 (5-19) 04/02/22 14:58 BUN 13 mg/dL (6-20) 04/02/22 14:58 Creatinine 0.9 mg/dL (0.5-0.9) 04/02/22 14:58 GFR Calculation 64.3 mL/min (90-130) L 04/02/22 14:58 Glucose 116 mg/dL (65-115) H 04/02/22 14:58 Calculated Osmolality 283 mOsm/kg (285-295) L 04/02/22 14:58 Calcium 8.8 mg/dL (8.5-10.5) 04/02/22 14:58 Total Bilirubin 0.8 mg/dL (0.15-1.2) 04/02/22 14:58 AST 28 U/L (0-32) 04/02/22 14:58 ALT 30 U/L (0-33) 04/02/22 14:58 Alkaline Phosphatase 99 U/L (35-105) 04/02/22 14:58 Troponin T Baseline 29 ng/L (0-10) H 04/02/22 14:58 Troponin T 120 Minute 28.58 ng/L (0-10) H 04/02/22 17:42 Delta Troponin T -0.42 ABS# (0-10) L 04/02/22 17:42 NT-Pro-B Natriuret Pep 94673 pg/mL (0-125) H 04/02/22 14:39 Total Protein 6.2 g/dL (6.6-8.7) L 04/02/22 14:58 Albumin 3.5 g/dL (3.5-5.2) 04/02/22 14:58 Globulin 2.7 g/dL (1.3-4.6) 04/02/22 14:58 Nasal Influ A H1 2009 PCR Detected (NOT DETECT) A 04/02/22 18:56 Coronavirus 229E (PCR) Not detected (NOT DETECT) 04/02/22 16:50 Influenza A (H1) PCR Not detected (NOT DETECT) 04/02/22 18:56 Influenza A (H3) PCR Not detected (NOT DETECT) 04/02/22 18:56 Influenza Type A (PCR) Detected (NOT DETECT) A 04/02/22 18:56 Influenza Type B (PCR) Not detected (NOT DETECT) 04/02/22 18:56 SARS-CoV-2 (PCR) Not detected (NOT DETECT) 04/02/22 16:50 Discharge Plan Discharge Patient Disposition: Left Against Medical Advice Clinical Impression: Asthma with exacerbation Condition: Stable Prescriptions: No Action Lasix 20 mg tablet 20 mg PO QAM Qty: 90 3RF Women's 50 Plus Multivitamin 400 mcg-500 mg calcium-20 mcg Tablet 1 tab PO DAILY Vitamin C 500 mg Tablet 500 mg PO DAILY Vitamin D3 25 mcg (1,000 unit) Tablet 25 mcg PO DAILY potassium chloride 20 mEq tablet extended release 10 meq PO QAM clopidogrel 75 mg tablet 75 mg PO QAM aspirin 81 mg tablet,delayed release (DR/EC) 81 mg PO QAM Discharge Orders: Discharge ED (Routine); Ordered 04/02/22 Ordered By: Jorge Daniel Coding Level of Care Code ED Tower [employer] Traffic [employer] Specialist for Liseth Fung
[2022-04-02 15:35] LABS: Alanine Aminotransferase 30 U/L (0-33); Albumin Level 3.5 g/dL (3.5-5.2); Alkaline Phosphatase 99 U/L (35-105); Aspartate Amino Transferase 28 U/L (0-32); Blood Urea Nitrogen 13 mg/dL (6-20); Calcium 8.8 mg/dL (8.5-10.5); Carbon Dioxide 26 mmol/L (22-29); Chloride 99 mmol/L (98-107); Creatinine Clr Calc Pharmacy 58.7205; Globulin 2.7 g/dL (1.3-4.6); Glomerular Filtration Rate 64.3 mL/min (90-130); Glucose 116 mg/dL (65-115); Osmolality Calculated 283 mOsm/kg (285-295); Sodium 136 mmol/L (136-145); Total Bilirubin 0.8 mg/dL (0.15-1.2); Total Protein 6.2 g/dL (6.6-8.7)
[2022-04-02 15:42] LABS: Troponin(5th) Baseline 29 ng/L (0-10)
--- NOTE | 2022-04-02 15:45 | PC.PHAR ---
Addendum entered by Pili Capps 04/02/22 15:51: pt states the dr brandt her lipitor 40mg hs last filled 11/08/21 30d/s and lisinopril 2.5mg daily last filled 11/08/21 30d/s Original Note: pt states she takes care of her own medications-pt states she has been out of her inhalers from months albuterol hfa 2p q4h prn written 05/09/21, atrovent hfa 2p q12h prn-advair diskus 250-50 1p bid written 05/09/21 ext med history doesnt show when last filled-pt states she only takes the medications entered
--- NOTE | 2022-04-02 16:03 | ECG_ITS ---
[facility] Test Date: 2022-04-02 Pat Name: Melissa Benoit Department: Room: Gender: Female Assistant [employer]: : 1965 Requested By: Jersey Graff Order Number: [id number] Basil MD: Luna Sandoval M.D. Measurements Intervals [place] Rate: 112 P: 25 MO: 120 QRS: -50 QRSD: 118 T: 100 QT: 344 QTc: 470 Interpretive Statements SINUS TACHYCARDIA INCOMPLETE RIGHT BUNDLE BRANCH BLOCK [90+ ms QRS DURATION, TERMINAL R IN V1/V2, 40+ ms S IN I/aVL/V4/V5/V6] LEFT ANTERIOR FASCICULAR BLOCK [QRS AXIS <= -45, QR IN I, RS IN II] POSSIBLE ANTEROLATERAL MYOCARDIAL INFARCTION , OF INDETERMINATE AGE [30 ms Q WAVE IN I/aVL/V3-V6] Compared to ECG 04/02/2022 13:55:27 No significant changes Electronically Signed On 04-03-2022 13:12:55 [employer]ING by Luna Sandoval M.D. [email or web address]
[2022-04-02 16:45] VITALS: BP 128/84; PULSE 111; RESP 18; TEMP 36.8; O2SAT 97
[2022-04-02 18:25] VITALS: PULSE 114; RESP 22; O2SAT 94
[2022-04-02] MEDS: ipratropium-albuterol 3 mL Neb INHALATION (18:29)
[2022-04-02 18:34] VITALS: PULSE 114
[2022-04-02 18:37] LABS: Troponin 5 2HR 28.58 ng/L (0-10)
[2022-04-02 18:40] LABS: Troponin 5 2HR Delta -0.42 ABS# (0-10)
[2022-04-02 18:55] LABS: Adenovirus Not Detected (NOT DETECT); Chlamydia Pneumoniae Not Detected (NOT DETECT); Coronavirus 229E,HKU1,NL63,OC4 Not Detected (NOT DETECT); Human Metapneumovirus Not Detected (NOT DETECT); Human Rhinovirus/Enterovirus Not Detected (NOT DETECT); Influenza A Detected (NOT DETECT); Influenza A H1 Not Detected (NOT DETECT); Influenza A H1-2009 Detected (NOT DETECT); Influenza A H3 Not Detected (NOT DETECT); Influenza B Not Detected (NOT DETECT); Mycoplasma Pneumoniae Not Detected (NOT DETECT); Parainfluenza Virus Type 1 Not Detected (NOT DETECT); Parainfluenza Virus Type 2 Not Detected (NOT DETECT); Parainfluenza Virus Type 3 Not Detected (NOT DETECT); Parainfluenza Virus Type 4 Not Detected (NOT DETECT); Respiratory Syncytial Virus A Not Detected (NOT DETECT); Respiratory Syncytial Virus B Not Detected (NOT DETECT); SARS-COV-2 Not Detected (NOT DETECT)
[2022-04-02 18:57] LABS: Influenza A Detected (NOT DETECT); Influenza A H1 Not Detected (NOT DETECT); Influenza A H1-2009 Detected (NOT DETECT); Influenza A H3 Not Detected (NOT DETECT); Influenza B Not Detected (NOT DETECT); Results from GEN
[2022-04-02 20:03] LABS: NT Pro B Type Natriuretic Pept 16258 pg/mL (0-125)
== END 2022-04-02 18:40 | disposition left against medical advice (07) ==
PROVIDERS: Family Medicine; Physician Assistant; Emergency Provider Emergency Medicine
DX: J45.901 Unspecified asthma with (acute) exacerbation (principal); Z53.21 Procedure and treatment not carried out due to patient leaving prior to being seen by health care provider; Z79.02 Long term (current) use of antithrombotics/antiplatelets; Z79.82 Long term (current) use of aspirin; J44.9 Chronic obstructive pulmonary disease, unspecified; I25.10 Atherosclerotic heart disease of native coronary artery without angina pectoris; I25.2 Old myocardial infarction; F17.210 Nicotine dependence, cigarettes, uncomplicated; Z20.822 Contact with and (suspected) exposure to COVID-19
CPT/HCPCS: 36415; 71045; 80053; 83880; 84484; 85025; 87631; 87635; 93005; 94640; 99285

== ENCOUNTER 2022-04-04 16:04 | Inpatient (IN) | payer MEDICAID, SELFPAY ==
[2022-04-04] VITALS (7 sets, daily range): BP systolic 90–121; BP diastolic 50–71; PULSE 65–96; RESP 14–22; TEMP 36.8; O2SAT 92–98; BMI 20.5
--- NOTE | 2022-04-04 17:20 | XRR_ITS ---
PROCEDURE INFORMATION: Exam: XR Chest Exam date and time: 04/04/2022 5:54 PM Age: 56 years old Clinical indication: Cough; Additional info: Weakness, cough TECHNIQUE: Imaging protocol: Radiologic exam of the chest. Views: 1 view. COMPARISON: CR XR chest 1V portable [id number] 04/02/2022 2:24 PM FINDINGS: Lungs: Bibasilar atelectasis versus infiltrate right greater than left. Emphysematous changes. Pleural spaces: Unremarkable. No pleural effusion. No pneumothorax. Heart/Mediastinum: Cardiomegaly. Bones/joints: Unremarkable. XR/XR chest 1V portable [id number] IMPRESSION: 1. Bibasilar atelectasis versus infiltrate right greater than left. 2. Emphysematous changes. 3. Cardiomegaly.
--- NOTE | 2022-04-04 17:33 | ED_ITS ---
Documented by User: DENISA Peoples 04/05/22 00:22 HPI - SOB/Dyspnea General: Chief Complaint: Shortness of Breath/Dyspnea Stated Complaint: weakness Time Seen by Provider: 04/04/22 17:20 History of Present Illness: HPI Narrative: Patient is a 56-year-old female comes to the ED with shortness of breath. Past medical history of CHF and COPD. She is not on any oxygen at home. Patient was seen here in the ED back on the March 30 and April 02 for same complaint. She tested positive for influenza A back on April 02, but she eloped the ED before Doctor gave her dispo plan. She states that her symptoms now been going on for approximately 5 days. She is having shortness of breath, cough, headache, chills, body aches and fevers. Denies any nausea or vomiting. Her cough is dry nonproductive. Last night patient used her mother's oxygen to help with her shortness of breath. Denies any chest pains. She also reports having bilateral lower leg swelling and edema that started approximately 5 days ago as well. Associated symptoms: Reports fever(s); Deny abdominal pain, chest pain, nausea, orthopnea, palpitations or vomiting Review of Systems Const: Reports: fever(s), chills, body aches and fatigue Eyes: Denies: change in vision or eye discomfort ENMT: Reports: nasal congestion; Denies: throat pain, odynophagia or nasal discharge Card: Denies: chest pain, palpitations, edema, swelling of feet/ankles, dyspn ea on exertion or orthopnea Resp: Reports: dyspnea and non-productive cough; Denies: productive cough GI: Denies: abdominal pain, nausea, vomiting, diarrhea, constipation or hematochezia : Denies: flank pain, dysuria or hematuria Musc: Denies: neck pain, back pain or extremity swelling Skin/Breast: Denies: rash or new lesions Neuro: Reports: headache(s); Denies: numbness in extremities or weakness in extremities PFS ED PFSH: Medical History Acute exacerbation of chronic obstructive airways disease Acute hypoxemic respiratory failure Atherosclerosis of coronary artery Dyspnea on exertion Hypoxia Ischemic cardiomyopathy Orthopnea Ovarian cyst STEMI (ST elevation myocardial infarction) Tobacco abuse Surgical History H/O tubal ligation H/O: hysterectomy History of appendectomy History of laparotomy Family History Other CHF (congestive heart failure) Social History Smoking and tobacco status: current every day smoker Alcohol intake: never Lives independently: Yes Household members: significant other Marital status: Life Partner Current occupational status: disabled Physical Exam Const: COMMON NORMALS: patient oriented x3 and alert GENERAL APPEARANCE: cooperative HENMT: COMMON NORMALS: normocephalic HEAD & SCALP: normocephalic MOUTH: Normal oral and palatal mucosa present THROAT: posterior oropharynx normal and uvula midline Neck/C-Spine: COMMON NORMALS: supple GENERAL: Yes normal visual inspection Resp: COMMON NORMALS: normal respiratory effort, No retractions, No use of accessory muscles and clear to auscultation bilaterally AUSCULTATION: clear to auscultation bilaterally Cardio: COMMON NORMALS: regular rate, regular rhythm, S1 normal heart sound present, S2 normal heart sound present, No gallops present (Cardio), No clicks present (Cardio), No murmurs present (Cardio) and Peripheral pulses 2+ throughout RATE: regular rate RHYTHM: regular rhythm HEART SOUNDS: S1 normal heart sound present and S2 normal heart sound present PERIPHERAL PULSES: Peripheral pulses 2+ throughout GI: COMMON NORMALS: Normal to inspection, nondistended, normoactive bowel sounds present, Soft to palpation, non-tender and no masses PALPATION: Yes Soft to palpation : COMMON NORMALS: Yes no CVA tenderness BLADDER/KIDNEY EXAM: Yes no CVA tenderness Back/Pelvis: COMMON NORMALS: no CVA tenderness Extremity: GENERAL: Yes edema (2+ pitting edema on lower extremities bilaterally.) Neuro: COMMON NORMALS: patient oriented x3 SENSORIUM/ORIENTATION: Yes alert GAIT: Yes Normal gait present Skin: GENERAL SKIN EXAM: dry skin Course Vital Signs: Vital signs: Vital Signs Temperature 99.8 F H 04/05/22 00:00 Pulse Rate 85 04/05/22 00:00 Respiratory Rate 14 04/05/22 00:00 Blood Pressure 92/59 04/05/22 00:00 Pulse Oximetry 100 04/05/22 00:00 Oxygen Delivery Me thod 04/05/22 00:00 Oxygen Flow Rate 2 04/05/22 00:00 MDM - SOB/Dyspnea Medical Decision Making Patient is a 56-year-old female comes to the ED with shortness of breath. She was seen here in the ED back on March 30 and April 02 and eloped on April 02 before Doctor could talk to patient about dispo plan. She tested positive for influenza a few days ago as well. Endorses having lower leg bilateral edema. She states she has a history of COPD and CHF but is not on any oxygen at home. Here in the ED patient is requiring 4 L of O2 and is satting around 92%. Her blood pressures were a little low as well at 90/50. Rest of her vitals are stable. Patient appears nontoxic in no acute distress. She has 2+ pitting edema in her lower extremities bilaterally and the rest of exam is benign. CBC and CMP are unremarkable. Troponins negative. BNP was 16,540. Chest x-ray shows bibasilar atelectasis and cardiomegaly. I talked with Dr. Sierra about patient case and he agreed patient should be admitted for further evaluation for acute exacerbation of heart failure. I contacted Dr. Morfin the hospitalist on- call and told her about patient case and she agreed to have patient admitted to the hospital. Dr. Sierra placed the admitting orders. Lab Data I reviewed the patient's lab results. 04/04/22 17:45 04/04/22 17:45 Labs/Radiology: Radiology Impressions Chest X-Ray 04/04/22 17:20 IMPRESSION: 1. Bibasilar atelectasis versus infiltrate right greater than left. 2. Emphysematous changes. 3. Cardiomegaly. Laboratory Results WBC 5.4 10^3/uL (4.0-10.0) 04/04/22 17:45 RBC 4.45 10^6/uL (4.1-5.3) 04/04/22 17:45 Hgb 13.7 g/dL (11.5-15.3) 04/04/22 17:45 Hct 43.3 % (37.0-47.0) 04/04/22 17:45 MCV 97.3 fl (81-99) 04/04/22 17:45 MCH 30.8 pg (28.0-34.0) 04/04/22 17:45 MCHC 31.6 g/dL (30.0-36.0) 04/04/22 17:45 RDW 15.5 % (12.1-15.1) H 04/04/22 17:45 Plt Count 142 10^3/cmm (130-400) 04/04/22 17:45 MPV 11.3 fL (7.4-10.4) H 04/04/22 17:45 Neut % (Auto) 88.1 % 04/04/22 17:45 Lymph % (Auto) 7.8 % 04/04/22 17:45 Frontier % (Auto) 3.3 % 04/04/22 17:45 Eos % (Auto) 0.2 % 04/04/22 17:45 Baso % (Auto) 0.2 % 04/04/22 17:45 Neut # (Auto) 4.77 10^3/uL (1.8-7.7) 04/04/22 17:45 Lymph # (Auto) 0.4 10^3/uL (0.8-4.8) L 04/04/22 17:45 Frontier # (Auto) 0.2 10^3/uL (0.2-0.9) 04/04/22 17:45 Eos # (Auto) 0.0 10^3/uL (0.0-0.8) 04/04/22 17:45 Baso # (Auto) 0.0 10^3/uL (0.0-0.1) 04/04/22 17:45 Nucleated RBC % (auto) 0 % 04/04/22 17:45 Nucleated RBCs # 0.0 /100WBC 04/04/22 17:45 Sodium 130 mmol/L (136-145) L 04/04/22 17:45 Potassium 4.4 mmol/L (3.5-5.1) 04/04/22 17:45 Chloride 93 mmol/L (98-107) L 04/04/22 17:45 Carbon Dioxide 28 mmol/L (22-29) 04/04/22 17:45 Anion Gap 13.4 (5-19) 04/04/22 17:45 BUN 20 mg/dL (6-20) 04/04/22 17:45 Creatinine 0.9 mg/dL (0.5-0.9) 04/04/22 17:45 GFR Calculation 64.3 mL/min (90-130) L 04/04/22 17:45 Glucose 100 mg/dL (65-115) 04/04/22 17:45 Calculated Osmolality 273 mOsm/kg (285-295) L 04/04/22 17:45 Calcium 8.2 mg/dL (8.5-10.5) L 04/04/22 17:45 Total Bilirubin 0.5 mg/dL (0.15-1.2) 04/04/22 17:45 AST 65 U/L (0-32) H 04/04/22 17:45 ALT 45 U/L (0-33) H 04/04/22 17:45 Alkaline Phosphatase 86 U/L (35-105) 04/04/22 17:45 Troponin T Baseline 37 ng/L (0-10) H 04/04/22 17:45 Troponin T 120 Minute 37.45 ng/L (0-10) H 04/04/22 19:12 Delta Troponin T 0.45 ABS# (0-10) 04/04/22 19:12 NT-Pro-B Natriuret Pep 92707 pg/mL (0-125) H 04/04/22 17:45 Total Protein 6.4 g/dL (6.6-8.7) L 04/04/22 17:45 Albumin 2.7 g/dL (3.5-5.2) L 04/04/22 17:45 Globulin 3.7 g/dL (1.3-4.6) 04/04/22 17:45 Lipase 30 U/L (13-60) 04/04/22 17:45 Urine Opiates Screen Positive ng/mL (Negative) H 04/04/22 10:12 Ur Barbiturates Screen Negative ng/mL (Negative) 04/04/22 10:12 Ur Phencyclidine Scrn Negative ng/mL (Negative) 04/04/22 10:12 Ur Amphetamines Screen Positive ng/mL (Negative) H 04/04/22 10:12 U Benzodiazepines Scrn Negative ng/mL (Negative) 04/04/22 10:12 Urine Cocaine Screen Negative ng/mL (Negative) 04/04/22 10:12 U Marijuana (THC) Screen Positive ng/mL (Negative) H 04/04/22 10:12 EKG Data EKG 1: EKG Interpretation Date: 04/04/22 Interpretation: Normal sinus rhythm, no ST segment elevation or depression seen. 94 bpm. Discharge Plan Discharge Patient Disposition: Admitted As Inpatient Admit Provider: Montserrat Morfin Clinical Impression: Acute exacerbation of CHF (congestive heart failure) Qualifiers: Heart failure type: unspecified Qualified Code(s): I50.9 - Heart failure, unspecified Condition: Stable Coding Level of Care Code ED Pharmacy Technician Per Diem for Chg Fwd Exam Comprehensive Documented by User: Jesus Sierra, 04/05/22 01:05 HPI - SOB/Dyspnea General: Chief Complaint: Shortness of Breath/Dyspnea Stated Complaint: weakness Time Seen by Provider: 04/04/22 17:20 PFSH ED PFSH: Medical History Acute exacerbation of chronic obstructive airways disease Acute hypoxemic respiratory failure Atherosclerosis of coronary artery Dyspnea on exertion Hypoxia Ischemic cardiomyopathy Orthopnea Ovarian cyst STEMI (ST elevation myocardial infarction) Tobacco abuse Surgical History H/O tubal ligation H/O: hysterectomy History of appendectomy History of laparotomy Family History Other CHF (congestive heart failure) Social History Smoking and tobacco status: current every day smoker Alcohol intake: never Lives independently: Yes Household members: significant other Marital status: Life Partner Current occupational status: disabled Course Vital Signs: Vital signs: Vital Signs Temperature 99.8 F H 04/05/22 00:00 Pulse Rate 85 04/05/22 00:00 Respiratory Rate 14 04/05/22 00:00 Blood Pressure 92/59 04/05/22 00:00 Pulse Oximetry 100 04/05/22 00:00 Oxygen Delivery Me thod 04/05/22 00:00 Oxygen Flow Rate 2 04/05/22 00:00 MDM - SOB/Dyspnea Medical Decision Making Patient is a 56-year-old female comes to the ED with shortness of breath. She was seen here in the ED back on March 30 and April 02 and eloped on April 02 before Doctor could talk to patient about dispo plan. She tested positive for influenza a few days ago as well. Endorses having lower leg bilateral edema. She states she has a history of COPD and CHF but is not on any oxygen at home. Here in the ED patient is requiring 4 L of O2 and is satting around 92%. Her blood pressures were a little low as well at 90/50. Rest of her vitals are stable. Patient appears nontoxic in no acute distress. She has 2+ pitting edema in her lower extremities bilaterally and the rest of exam is benign. CBC and CMP are unremarkable. Troponins negative. BNP was 16,540. Chest x-ray shows bibasilar atelectasis and cardiomegaly. I talked with Dr. Sierra about patient case and he agreed patient should be admitted for further evaluation for acute exacerbation of heart failure. I contacted Dr. Morfin the hospitalist on- call and told her about patient case and she agreed to have patient admitted to the hospital. Dr. Sierra placed the admitting orders. This patient was originally seen by Mr. Yola PA-C.? I agree with his history, evaluation, and treatment. Lab Data 04/04/22 17:45 04/04/22 17:45 Labs/Radiology: Radiology Impressions Chest X-Ray 04/04/22 17:20 IMPRESSION: 1. Bibasilar atelectasis versus infiltrate right greater than left. 2. Emphysematous changes. 3. Cardiomegaly. Laboratory Results WBC 5.4 10^3/uL (4.0-10.0) 04/04/22 17:45 RBC 4.45 10^6/uL (4.1-5.3) 04/04/22 17:45 Hgb 13.7 g/dL (11.5-15.3) 04/04/22 17:45 Hct 43.3 % (37.0-47.0) 04/04/22 17:45 MCV 97.3 fl (81-99) 04/04/22 17:45 MCH 30.8 pg (28.0-34.0) 04/04/22 17:45 MCHC 31.6 g/dL (30.0-36.0) 04/04/22 17:45 RDW 15.5 % (12.1-15.1) H 04/04/22 17:45 Plt Count 142 10^3/cmm (130-400) 04/04/22 17:45 MPV 11.3 fL (7.4-10.4) H 04/04/22 17:45 Neut % (Auto) 88.1 % 04/04/22 17:45 Lymph % (Auto) 7.8 % 04/04/22 17:45 Frontier % (Auto) 3.3 % 04/04/22 17:45 Eos % (Auto) 0.2 % 04/04/22 17:45 Baso % (Auto) 0.2 % 04/04/22 17:45 Neut # (Auto) 4.77 10^3/uL (1.8-7.7) 04/04/22 17:45 Lymph # (Auto) 0.4 10^3/uL (0.8-4.8) L 04/04/22 17:45 Frontier # (Auto) 0.2 10^3/uL (0.2-0.9) 04/04/22 17:45 Eos # (Auto) 0.0 10^3/uL (0.0-0.8) 04/04/22 17:45 Baso # (Auto) 0.0 10^3/uL (0.0-0.1) 04/04/22 17:45 Nucleated RBC % (auto) 0 % 04/04/22 17:45 Nucleated RBCs # 0.0 /100WBC 04/04/22 17:45 Sodium 130 mmol/L (136-145) L 04/04/22 17:45 Potassium 4.4 mmol/L (3.5-5.1) 04/04/22 17:45 Chloride 93 mmol/L (98-107) L 04/04/22 17:45 Carbon Dioxide 28 mmol/L (22-29) 04/04/22 17:45 Anion Gap 13.4 (5-19) 04/04/22 17:45 BUN 20 mg/dL (6-20) 04/04/22 17:45 Creatinine 0.9 mg/dL (0.5-0.9) 04/04/22 17:45 GFR Calculation 64.3 mL/min (90-130) L 04/04/22 17:45 Glucose 100 mg/dL (65-115) 04/04/22 17:45 Calculated Osmolality 273 mOsm/kg (285-295) L 04/04/22 17:45 Calcium 8.2 mg/dL (8.5-10.5) L 04/04/22 17:45 Total Bilirubin 0.5 mg/dL (0.15-1.2) 04/04/22 17:45 AST 65 U/L (0-32) H 04/04/22 17:45 ALT 45 U/L (0-33) H 04/04/22 17:45 Alkaline Phosphatase 86 U/L (35-105) 04/04/22 17:45 Troponin T Baseline 37 ng/L (0-10) H 04/04/22 17:45 Troponin T 120 Minute 37.45 ng/L (0-10) H 04/04/22 19:12 Delta Troponin T 0.45 ABS# (0-10) 04/04/22 19:12 NT-Pro-B Natriuret Pep 93368 pg/mL (0-125) H 04/04/22 17:45 Total Protein 6.4 g/dL (6.6-8.7) L 04/04/22 17:45 Albumin 2.7 g/dL (3.5-5.2) L 04/04/22 17:45 Globulin 3.7 g/dL (1.3-4.6) 04/04/22 17:45 Lipase 30 U/L (13-60) 04/04/22 17:45 Urine Opiates Screen Positive ng/mL (Negative) H 04/04/22 10:12 Ur Barbiturates Screen Negative ng/mL (Negative) 04/04/22 10:12 Ur Phencyclidine Scrn Negative ng/mL (Negative) 04/04/22 10:12 Ur Amphetamines Screen Positive ng/mL (Negative) H 04/04/22 10:12 U Benzodiazepines Scrn Negative ng/mL (Negative) 04/04/22 10:12 Urine Cocaine Screen Negative ng/mL (Negative) 04/04/22 10:12 U Marijuana (THC) Screen Positive ng/mL (Negative) H 04/04/22 10:12 Discharge Plan Discharge Patient Disposition: Admitted As Inpatient Admit Provider: Montserrat Morfin Clinical Impression: Acute exacerbation of CHF (congestive heart failure) Qualifiers: Heart failure type: unspecified Qualified Code(s): I50.9 - Heart failure, unspecified Condition: Stable Coding Level of Care Code ED Pharmacy Technician Per Diem for g Fwd Exam Comprehensive
--- NOTE | 2022-04-04 17:41 | ECG_ITS ---
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 Measurements Intervals [place] Rate: 94 P: 61 [place]: 145 QRS: -48 QRSD: 108 T: 104 QT: 356 QTc: 446 Interpretive Statements SINUS RHYTHM POSSIBLE LEFT ATRIAL ENLARGEMENT [-0.1mV P-WAVE IN V1/V2] PATTERN CONSISTENT WITH PULMONARY DISEASE INCOMPLETE RIGHT BUNDLE BRANCH BLOCK [90+ ms QRS DURATION, TERMINAL R IN V1/V2, 40+ ms S IN I/aVL/V4/V5/V6] LEFT ANTERIOR FASCICULAR BLOCK [QRS AXIS <= -45, QR IN I, RS IN II] SEPTAL MYOCARDIAL INFARCTION , PROBABLY OLD [40+ ms Q WAVE IN V1/V2] Compared to ECG 04/02/2022 16:03:26 Sinus tachycardia no longer present Myocardial infarct finding still present Electronically Signed On 04-05-2022 12:54:02 SANDER HAND by Ed Webber M.D. [id number]
[2022-04-04] MEDS: ipratropium-albuterol 3 mL Neb 6 ML INHALATION (17:48)
[2022-04-04 17:54] LABS: Basophils % 0.2 %; Eosinophils % 0.2 %; Hematocrit 43.3 % (37.0-47.0); Hemoglobin 13.7 g/dL (11.5-15.3); Lymphocytes # 0.4 10^3/uL (0.8-4.8); Lymphocytes % 7.8 %; Mean Corpuscular HGB Conc 31.6 g/dL (30.0-36.0); Mean Corpuscular Hemoglobin 30.8 pg (28.0-34.0); Mean Corpuscular Volume 97.3 fl (81-99); Mean Platelet Volume 11.3 fL (7.4-10.4); Monocytes # 0.2 10^3/uL (0.2-0.9); Monocytes % 3.3 %; Neutrophils # 4.77 10^3/uL (1.8-7.7); Neutrophils % 88.1 %; Nucleated Red Blood Cells % 0 %; Platelet Count 142 10^3/cmm (130-400); Red Blood Count 4.45 10^6/uL (4.1-5.3); Red Cell Distribution Width 15.5 % (12.1-15.1); White Blood Count 5.4 10^3/uL (4.0-10.0)
[2022-04-04] MEDS: HYDROcodone-acetaminophen 7.5-325 mg Tablet 1 TAB PO (17:57)
[2022-04-04 18:18] LABS: Troponin(5th) Baseline 37 ng/L (0-10)
[2022-04-04 18:25] LABS: Alanine Aminotransferase 45 U/L (0-33); Albumin Level 2.7 g/dL (3.5-5.2); Alkaline Phosphatase 86 U/L (35-105); Blood Urea Nitrogen 20 mg/dL (6-20); Calcium 8.2 mg/dL (8.5-10.5); Carbon Dioxide 28 mmol/L (22-29); Chloride 93 mmol/L (98-107); Creatinine Clr Calc Pharmacy 58.7205; Globulin 3.7 g/dL (1.3-4.6); Glomerular Filtration Rate 64.3 mL/min (90-130); Glucose 100 mg/dL (65-115); Lipase 30 U/L (13-60); NT Pro B Type Natriuretic Pept 16540 pg/mL (0-125); Osmolality Calculated 273 mOsm/kg (285-295); Sodium 130 mmol/L (136-145); Total Bilirubin 0.5 mg/dL (0.15-1.2); Total Protein 6.4 g/dL (6.6-8.7)
[2022-04-04 18:26] LABS: Anion Gap 13.4 (5-19); Aspartate Amino Transferase 65 U/L (0-32); Potassium 4.4 mmol/L (3.5-5.1)
--- NOTE | 2022-04-04 18:57 | PC.NURSE ---
Pts pulse ox dropped down to 83%, i placed her on 2lpm and it went to 96%
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
[2022-04-04] MEDS: FUROsemide 10 mg/mL SDV 4mL 40 MG IVP (19:16)
[2022-04-04 19:35] LABS: Troponin 5 2HR 37.45 ng/L (0-10)
[2022-04-04 19:39] LABS: Troponin 5 2HR Delta 0.45 ABS# (0-10)
[2022-04-04] MEDS: sodium chloride 0.9% 500 ML 999 ML IV (19:40)
[2022-04-04 21:09] LABS: Lactic Sepsis W/Reflex 1.9 mmol/L (0.5-2.2)
[2022-04-04] MEDS: enoxaparin 40 mg/0.4 mL Syringe SUBCUT (21:14)
[2022-04-04 21:22] LABS: Procalcitonin 1.15 ng/mL (0-0.5); Thyroid Stimulating Hormone 1.23 uIU/mL (0.27-4.20)
[2022-04-04 22:37] LABS: Amphetamines Screen Urine Positive (Negative); Barbiturates Screen Urine Negative (Negative); Benzodiazepines Screen Urine Negative (Negative); Cocaine Screen Urine Negative (Negative); Opiate Screen Urine Positive (Negative); PCP Screen Urine Negative (Negative); THC Screen Urine Positive (Negative)
[2022-04-04] MEDS: azithromycin 500 MG in sodium chloride 0.9% 250 ML 250 MG IV (22:52)
--- NOTE | 2022-04-04 23:20 | ECG_ITS ---
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 Measurements Intervals [place] Rate: 84 P: 58 GA: 152 QRS: -61 QRSD: 113 T: 0 QT: 374 QTc: 445 Interpretive Statements SINUS RHYTHM WITH OCCASIONAL ECTOPIC PREMATURE COMPLEXES POSSIBLE LEFT ATRIAL ENLARGEMENT [-0.1mV P-WAVE IN V1/V2] PATTERN CONSISTENT WITH PULMONARY DISEASE INCOMPLETE RIGHT BUNDLE BRANCH BLOCK [90+ ms QRS DURATION, TERMINAL R IN V1/V2, 40+ ms S IN I/aVL/V4/V5/V6] LEFT ANTERIOR FASCICULAR BLOCK [QRS AXIS <= -45, QR IN I, RS IN II] SEPTAL MYOCARDIAL INFARCTION , PROBABLY OLD [40+ ms Q WAVE IN V1/V2] Compared to ECG 04/04/2022 17:41:17 No significant changes Electronically Signed On 04-05-2022 12:54:39 PARTY COORDINATOR by Ed Webber M.D. [id number]
[2022-04-04 23:29] LABS: Troponin 5 6HR 33.89 ng/L (0-10)
[2022-04-04 23:37] LABS: Troponin 5 6HR Delta -3.11 ng/L (0-12)
[2022-04-05] VITALS (116 sets, daily range): BP systolic 92–118; BP diastolic 59–79; PULSE 81–111; RESP 11–37; TEMP 36.6–38.2; O2SAT 88–100
[2022-04-05] MEDS: cefTRIAXone 1,000 MG in sodium chloride 0.9% (plus) 50 ML 100 MG IV ×2 (00:21→23:37)
[2022-04-05] MEDS: ipratropium-albuterol 3 mL Neb INHALATION ×5 (01:21→21:04)
[2022-04-05 04:04] LABS: Basophils % 0.4 %; Eosinophils % 0.2 %; Hematocrit 38.8 % (37.0-47.0); Hemoglobin 11.9 g/dL (11.5-15.3); Lymphocytes # 0.6 10^3/uL (0.8-4.8); Mean Corpuscular HGB Conc 30.7 g/dL (30.0-36.0); Mean Corpuscular Hemoglobin 30.7 pg (28.0-34.0); Mean Corpuscular Volume 100.3 fl (81-99); Mean Platelet Volume 11.6 fL (7.4-10.4); Monocytes # 0.2 10^3/uL (0.2-0.9); Monocytes % 3.8 %; Neutrophils # 3.86 10^3/uL (1.8-7.7); Neutrophils % 82.4 %; Nucleated Red Blood Cells % 0 %; Platelet Count 127 10^3/cmm (130-400); Red Blood Count 3.87 10^6/uL (4.1-5.3); Red Cell Distribution Width 15.6 % (12.1-15.1); White Blood Count 4.7 10^3/uL (4.0-10.0)
[2022-04-05 04:18] LABS: Anion Gap 11.8 (5-19); Blood Urea Nitrogen 17 mg/dL (6-20); Calcium 7.7 mg/dL (8.5-10.5); Carbon Dioxide 33 mmol/L (22-29); Chloride 94 mmol/L (98-107); Creatinine Clr Calc Pharmacy 58.7205; Glomerular Filtration Rate 64.3 mL/min (90-130); Glucose 99 mg/dL (65-115); Magnesium 1.7 mg/dL (1.7-2.3); Osmolality Calculated 284 mOsm/kg (285-295); Sodium 136 mmol/L (136-145)
[2022-04-05 04:30] LABS: Potassium 2.8 mmol/L (3.5-5.1)
[2022-04-05] MEDS: clopidogrel 75 mg Tablet PO (05:02)
[2022-04-05] MEDS: potassium chloride ER 20 mEq Tablet 40 MEQ PO (05:02)
[2022-04-05] MEDS: aspirin 81 mg EC Tablet PO (05:02)
--- NOTE | 2022-04-05 08:00 | XRR_ITS ---
PROCEDURE INFORMATION: Exam: XR Chest Exam date and time: 04/05/2022 7:55 AM Age: 56 years old Clinical indication: Shortness of breath; Additional info: R/O pneumonia TECHNIQUE: Imaging protocol: Radiologic exam of the chest. Views: 1 view. COMPARISON: CR (CHEST, ) 04/04/2022 5:54 PM FINDINGS: Lungs: Emphysematous changes again noted. Peribronchovascular peripheral ground-glass density in the left lung base, worsened compared to prior exam. Subtle patchy densities in the right mid lung periphery may be due to airspace disease versus scarring. Pleural spaces: No pneumothorax. No large pleural effusion. Heart/Mediastinum: The cardiomediastinal silhouette is within normal limits. Bones/joints: Unremarkable. XR/XR chest 1V portable [id number] IMPRESSION: 1. Increasing consolidation in the left lung base concerning for possible pneumonia. 2. Subtle patchy densities in the right mid lung periphery may be due to airspace disease versus scarring. 3. Emphysematous changes.
[2022-04-05] MEDS: budesonide 0.5 mg/2 mL Neb INHALATION ×2 (08:05→21:04)
[2022-04-05] MEDS: FUROsemide 10 mg/mL SDV 4mL 40 MG IVP (08:29)
[2022-04-05] MEDS: ascorbic acid 500 mg Tablet PO (08:30)
[2022-04-05] MEDS: cholecalciferol (vitamin D3) 1,000 unit Tablet 1000 UNIT PO (08:30)
[2022-04-05] MEDS: acetaminophen 325 mg Tablet 650 MG PO ×3 (08:35→23:48)
[2022-04-05] MEDS: magnesium sulfate premix 2 GM/50 ML PIGGYBACK IV (09:25)
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
[2022-04-05] MEDS: enoxaparin 40 mg/0.4 mL Syringe SUBCUT (22:08)
[2022-04-05] MEDS: doxycycline 100 MG in sodium chloride 0.9% (plus) 100 ML IV (22:16)
[2022-04-05] MEDS: oseltamivir phosphate 75 mg Capsule PO (22:16)
[2022-04-06] VITALS (8 sets, daily range): BP systolic 94–97; BP diastolic 63–65; PULSE 86–104; RESP 16–20; TEMP 36.8; O2SAT 91–98
[2022-04-06] MEDS: ipratropium-albuterol 3 mL Neb INHALATION ×2 (00:02→09:09)
[2022-04-06] MEDS: aspirin 81 mg EC Tablet PO (05:17)
[2022-04-06] MEDS: acetaminophen 325 mg Tablet 650 MG PO (05:17)
[2022-04-06] MEDS: clopidogrel 75 mg Tablet PO (05:17)
[2022-04-06 06:22] LABS: Basophils % 0.3 %; Hematocrit 37.3 % (37.0-47.0); Lymphocytes # 0.6 10^3/uL (0.8-4.8); Lymphocytes % 14.8 %; Mean Corpuscular HGB Conc 32.2 g/dL (30.0-36.0); Mean Corpuscular Hemoglobin 30.9 pg (28.0-34.0); Mean Corpuscular Volume 96.1 fl (81-99); Mean Platelet Volume 12.4 fL (7.4-10.4); Monocytes # 0.1 10^3/uL (0.2-0.9); Monocytes % 2.8 %; Neutrophils # 3.22 10^3/uL (1.8-7.7); Neutrophils % 81.8 %; Nucleated Red Blood Cells % 0 %; Platelet Count 110 10^3/cmm (130-400); Red Blood Count 3.88 10^6/uL (4.1-5.3); Red Cell Distribution Width 15.8 % (12.1-15.1); White Blood Count 3.9 10^3/uL (4.0-10.0)
[2022-04-06 06:36] LABS: Magnesium 1.9 mg/dL (1.7-2.3)
[2022-04-06 06:38] LABS: Alanine Aminotransferase 48 U/L (0-33); Albumin Level 2.4 g/dL (3.5-5.2); Alkaline Phosphatase 83 U/L (35-105); Aspartate Amino Transferase 62 U/L (0-32); Blood Urea Nitrogen 14 mg/dL (6-20); Calcium 7.7 mg/dL (8.5-10.5); Carbon Dioxide 26 mmol/L (22-29); Chloride 94 mmol/L (98-107); Globulin 3.3 g/dL (1.3-4.6); Glomerular Filtration Rate 102.7 mL/min (90-130); Glucose 113 mg/dL (65-115); Osmolality Calculated 269 mOsm/kg (285-295); Sodium 129 mmol/L (136-145); Total Bilirubin 0.2 mg/dL (0.15-1.2); Total Protein 5.7 g/dL (6.6-8.7)
[2022-04-06 06:46] LABS: Anion Gap 12.6 (5-19); Potassium 3.6 mmol/L (3.5-5.1)
[2022-04-06 06:53] LABS: Hepatitis A Antibody IgM Non-Reactive (Nonreactive); Hepatitis B Core IgM Non-Reactive (Nonreactive); Hepatitis B Surface Antigen Non-Reactive (Nonreactive); Hepatitis C Virus Antibody Non-Reactive (Nonreactive)
[2022-04-06] MEDS: cholecalciferol (vitamin D3) 1,000 unit Tablet 1000 UNIT PO (08:28)
[2022-04-06] MEDS: FUROsemide 10 mg/mL SDV 4mL 40 MG IVP (08:28)
[2022-04-06] MEDS: ascorbic acid 500 mg Tablet PO (08:28)
[2022-04-06] MEDS: oseltamivir phosphate 75 mg Capsule PO (08:28)
[2022-04-06] MEDS: budesonide 0.5 mg/2 mL Neb INHALATION (09:09)
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
[2022-04-15 12:29] LABS: Amphetamine 270 ng/mL; Methamphetamine 2200 ng/mL; Methylenedioxyamphetamine negative; Methylenedioxyethylamphetamine negative; Methylenedioxymethamphetamine negative
== END 2022-04-06 09:49 | disposition left against medical advice (07) | DRG 291 ==
LOC: ER 19:31 → CSU 19:42 → MEDSURG 04-06 07:52
PROVIDERS: Internal Medicine; Admitting Provider Internal Medicine; Emergency Provider Physician Assistant; Visit Provider Student in an Organized Health Care Education/Training Program
DX: I50.23 Acute on chronic systolic (congestive) heart failure (principal); J10.08 Influenza due to other identified influenza virus with other specified pneumonia; J15.9 Unspecified bacterial pneumonia; J44.1 Chronic obstructive pulmonary disease with (acute) exacerbation; J45.901 Unspecified asthma with (acute) exacerbation; I25.2 Old myocardial infarction; I25.5 Ischemic cardiomyopathy; F17.201 Nicotine dependence, unspecified, in remission; R74.8 Abnormal levels of other serum enzymes; I25.10 Atherosclerotic heart disease of native coronary artery without angina pectoris; R94.30 Abnormal result of cardiovascular function study, unspecified; Z99.81 Dependence on supplemental oxygen; Z22.322 Carrier or suspected carrier of Methicillin resistant Staphylococcus aureus; Z79.82 Long term (current) use of aspirin; Z79.02 Long term (current) use of antithrombotics/antiplatelets
CPT/HCPCS: 36415; 51702; 71045; 80048; 80053; 80074; 80306; 80324; 80359; 83605; 83690; 83735; 83880; 84145; 84443; 84484; 85025; 86403; 87040; 87086; 87449; 87641; 93005; 94640; 94664; 96372; 96374; 99285; J0456; J0696; J1650; J1940; J3475; J3490; J7040; J7050; J7626

== ENCOUNTER 2022-05-10 03:33 | Observation (INO) | payer MEDICAID, SELFPAY ==
[2022-05-10] VITALS (18 sets, daily range): BP systolic 111–137; BP diastolic 67–94; PULSE 89–110; RESP 15–24; TEMP 36.3–37.1; O2SAT 87–100; BMI 20.5
--- NOTE | 2022-05-10 03:49 | XRR_ITS ---
PROCEDURE INFORMATION: Exam: XR Chest Exam date and time: 05/10/2022 4:12 AM Age: 56 years old Clinical indication: Shortness of breath; Prior surgery; Surgery date: 6+ months; Surgery type: Coronary stents; Additional info: SOB TECHNIQUE: Imaging protocol: Radiologic exam of the chest. Views: 1 view. COMPARISON: CR (CHEST, ) 04/05/2022 7:55 AM FINDINGS: Lungs: Reticular changes of interstitium. Emphysematous lung disease. Negative for consolidation. Pleural spaces: Moderate volume bilateral pleural effusions. Negative for pneumothorax. Heart/Mediastinum: Moderate cardiomegaly. Bones/joints: Unremarkable. XR/XR chest 1V portable [id number] IMPRESSION: 1. Significant bilateral pleural effusions. 2. Interstitial edema not excluded. 3. Advanced emphysematous lung disease.
--- NOTE | 2022-05-10 03:50 | W.ED.SOB ---
Documented by User: Jorge Daniel MD 05/10/22 03:52 HPI - SOB/Dyspnea General: Chief Complaint: Shortness of Breath/Dyspnea Stated Complaint: sob Time Seen by Provider: 05/10/22 03:36 Source: patient Mode of arrival: ambulatory Limitations: no limitations History of Present Illness: HPI Narrative: 56-year-old female has a history of COPD along with congestive heart failure patient is on 2 L oxygen at home states over the last 2 days she has had some increasing shortness of breath she denies any pain she denies any fever patient denies any worsening improving factors. Associated symptoms: Deny abdominal pain, chest pain, fever(s), nausea or vomiting Review of Systems Const: Denies: fever(s), chills, body aches or change in appetite Eyes: Denies: blurry vision or eye discomfort ENMT: Denies: throat pain or dental pain Card: Denies: chest pain Resp: Reports: dyspnea and non-productive cough GI: Denies: abdominal pain, nausea, vomiting or diarrhea : Denies: dysuria Musc: Denies: neck pain or back pain Skin/Breast: Denies: rash Neuro: Denies: headache(s) Psych: Denies: depression Wally/Lymph: Denies: easy bruising All/Imm: Denies: urticaria PFSH ED PFSH: Medical History Acute exacerbation of chronic obstructive airways disease Acute hypoxemic respiratory failure Atherosclerosis of coronary artery Dyspnea on exertion Hypoxia Ischemic cardiomyopathy Orthopnea Ovarian cyst STEMI (ST elevation myocardial infarction) Tobacco abuse Surgical History H/O tubal ligation H/O: hysterectomy History of appendectomy History of laparotomy Family History Other CHF (congestive heart failure) Social History Smoking and tobacco status: current every day smoker Alcohol intake: never Lives independently: Yes Household members: significant other Marital status: Life Partner Current occupational status: disabled Physical Exam Const: COMMON NORMALS: patient oriented x3 GENERAL APPEARANCE: in distress and ill appearing HENMT: COMMON NORMALS: normocephalic and atraumatic HEAD & SCALP: normocephalic and atraumatic Eye: COMMON NORMALS: Equal, round and reactive pupils present and EOMs intact bilaterally PUPIL: Yes Equal, round and reactive pupils present Neck/C-Spine: COMMON NORMALS: full ROM and supple Chest: COMMONS NORMALS: normal inspection of the chest and normal palpation of entire chest wall Resp: EFFORT & INSPECTION: Yes tachypneic and Yes respiratory distress AUSCULTATION: wheezes Cardio: COMMON NORMALS: regular rate, regular rhythm and No murmurs present (Cardio) RATE: regular rate RHYTHM: regular rhythm GI: COMMON NORMALS: Normal to inspection, nondistended, normoactive bowel sounds present, Soft to palpation, non-tender and no masses PALPATION: Yes Soft to palpation Extremity: COMMON NORMALS: normal to inspection and full ROM Neuro: COMMON NORMALS: patient oriented x3, moves all extremities and no focal motor deficits Psych: COMMON NORMALS: mental status grossly normal, Normal thought process present and cooperative THOUGHT PROCESS: Normal thought process present Skin: COMMON NORMALS: no rashes or lesions noted and no wounds GENERAL SKIN EXAM: no rashes or lesions noted Course Vital Signs: Vital signs: Vital Signs Temperature 98.8 F 05/10/22 03:47 Pulse Rate 98 05/10/22 10:00 Respiratory Rate 20 H 05/10/22 04:51 Blood Pressure 119/67 05/10/22 10:00 Pulse Oximetry 97 05/10/22 10:00 Oxygen Delivery Me thod 05/10/22 12:48 Oxygen Flow Rate 2 05/10/22 08:30 MDM - SOB/Dyspnea Lab Data 05/10/22 05:25 05/10/22 05:25 Labs/Radiology: Radiology Impressions Chest X-Ray 05/10/22 03:49 IMPRESSION: 1. Significant bilateral pleural effusions. 2. Interstitial edema not excluded. 3. Advanced emphysematous lung disease. Laboratory Results WBC 8.4 10^3/uL (4.0-10.0) 05/10/22 05:25 Corrected WBC Cancelled 05/10/22 04:10 RBC 4.84 10^6/uL (4.1-5.3) 05/10/22 05:25 Hgb 14.3 g/dL (11.5-15.3) 05/10/22 05:25 Hct 45.8 % (37.0-47.0) 05/10/22 05:25 MCV 94.6 fl (81-99) 05/10/22 05:25 MCH 29.5 pg (28.0-34.0) 05/10/22 05:25 MCHC 31.2 g/dL (30.0-36.0) 05/10/22 05:25 RDW 17.3 % (12.1-15.1) H 05/10/22 05:25 Plt Count 257 10^3/cmm (130-400) 05/10/22 05:25 MPV 11.1 fL (7.4-10.4) H 05/10/22 05:25 Gran % Cancelled 05/10/22 04:10 Neut % (Auto) 83.6 % 05/10/22 05:25 Lymph % (Auto) 11.5 % 05/10/22 05:25 [place] % (Auto) 3.2 % 05/10/22 05:25 Eos % (Auto) 0.8 % 05/10/22 05:25 Baso % (Auto) 0.7 % 05/10/22 05:25 Neut # (Auto) 7.01 10^3/uL (1.8-7.7) 05/10/22 05:25 Lymph # (Auto) 1.0 10^3/uL (0.8-4.8) 05/10/22 05:25 [place] # (Auto) 0.3 10^3/uL (0.2-0.9) 05/10/22 05:25 Eos # (Auto) 0.1 10^3/uL (0.0-0.8) 05/10/22 05:25 Baso # (Auto) 0.1 10^3/uL (0.0-0.1) 05/10/22 05:25 Absolute Gran (auto) Cancelled 05/10/22 04:10 Nucleated RBC % (auto) 0 % 05/10/22 05:25 Nucleated RBCs # 0.0 /100WBC 05/10/22 05:25 PT 13.50 SECONDS (12.1-14.9) 05/10/22 05:25 INR 1.00 (0.8-1.2) 05/10/22 05:25 Specimen Type Arterial 05/10/22 04:45 Sample Site Brachial, right 05/10/22 04:45 ABG pH 7.47 (7.35-7.45) H 05/10/22 04:45 ABG pCO2 36.4 mmHg (35-45) 05/10/22 04:45 ABG pO2 91.2 mmHg (80.0-100.0) 05/10/22 04:45 ABG HCO3 26.7 mmol/L (22-26) H 05/10/22 04:45 ABG Base Excess 3.2 mmol/L (-2.0-2.0) H 05/10/22 04:45 Geoff Test Pos 05/10/22 04:45 Hematocrit 39.1 % (37-47) 05/10/22 04:45 Hgb O2 Saturation 94.7 % (95-100) L 05/10/22 04:45 Carboxyhemoglobin 3.2 %THgb (0.4-20.1) 05/10/22 04:45 Methemoglobin 0.7 % (0.4-1.5) 05/10/22 04:45 Total Hemoglobin 12.7 g/dL (12-16) 05/10/22 04:45 O2 Delivery Device Nc 05/10/22 04:45 O2 Liters/Min 2.0 % 05/10/22 04:45 Sap Payroll Consultant ID [email or web address] 05/10/22 04:45 Sodium 135 mmol/L (136-145) L 05/10/22 05:25 Potassium 3.8 mmol/L (3.5-5.1) 05/10/22 05:25 Chloride 96 mmol/L (98-107) L 05/10/22 05:25 Carbon Dioxide 26 mmol/L (22-29) 05/10/22 05:25 Anion Gap 16.8 (5-19) 05/10/22 05:25 BUN 18 mg/dL (6-20) 05/10/22 05:25 Creatinine 0.8 mg/dL (0.5-0.9) 05/10/22 05:25 GFR Calculation 73.7 mL/min (90-130) L 05/10/22 05:25 Glucose 102 mg/dL (65-115) 05/10/22 05:25 Calculated Osmolality 282 mOsm/kg (285-295) L 05/10/22 05:25 Calcium 9.4 mg/dL (8.5-10.5) 05/10/22 05:25 Total Bilirubin 0.8 mg/dL (0.15-1.2) 05/10/22 05:25 AST 35 U/L (0-32) H 05/10/22 05:25 ALT 33 U/L (0-33) 05/10/22 05:25 Alkaline Phosphatase 136 U/L (35-105) H 05/10/22 05:25 Troponin T Baseline 30 ng/L (0-10) H 05/10/22 05:25 Troponin T 120 Minute 20.13 ng/L (0-10) H 05/10/22 08:54 Delta Troponin T -9.87 ABS# (0-10) L 05/10/22 08:54 C-Reactive Protein 19.0 mg/L (0.0-4.9) H 05/10/22 05:25 NT-Pro-B Natriuret Pep 9083 pg/mL (0-125) H 05/10/22 05:25 Total Protein 8.4 g/dL (6.6-8.7) 05/10/22 05:25 Albumin 4.3 g/dL (3.5-5.2) 05/10/22 05:25 Globulin 4.1 g/dL (1.3-4.6) 05/10/22 05:25 Procalcitonin 0.05 ng/mL (0-0.5) 05/10/22 05:25 Influenza Type A Ag negative (Negative) 05/10/22 04:10 Influenza Type B Ag negative (Negative) 05/10/22 04:10 SARS-CoV-2 Ag (Rapid) negative (Negative) 05/10/22 04:10 Discharge Plan Discharge Patient Disposition: Placed in Observation Admit Provider: Jermaine Holbrook Clinical Impression: Acute exacerbation of chronic obstructive airways disease, Pleural effusion Coding Level of Care Code ED [employer] Supervisor for Chg Fwd Exam Comprehensive Documented by User: Anthony Delgadillo DO 05/10/22 13:01 HPI - SOB/Dyspnea General: Chief Complaint: Shortness of Breath/Dyspnea Stated Complaint: sob Time Seen by Provider: 05/10/22 03:36 PFSH ED PFSH: Medical History Acute exacerbation of chronic obstructive airways disease Acute hypoxemic respiratory failure Atherosclerosis of coronary artery Dyspnea on exertion Hypoxia Ischemic cardiomyopathy Orthopnea Ovarian cyst STEMI (ST elevation myocardial infarction) Tobacco abuse Surgical History H/O tubal ligation H/O: hysterectomy History of appendectomy History of laparotomy Family History Other CHF (congestive heart failure) Social History Smoking and tobacco status: current every day smoker Alcohol intake: never Lives independently: Yes Household members: significant other Marital status: Life Partner Current occupational status: disabled Course Vital Signs: Vital signs: Vital Signs Temperature 98.8 F 05/10/22 03:47 Pulse Rate 98 05/10/22 10:00 Respiratory Rate 20 H 05/10/22 04:51 Blood Pressure 119/67 05/10/22 10:00 Pulse Oximetry 97 05/10/22 10:00 Oxygen Delivery Me thod 05/10/22 12:48 Oxygen Flow Rate 2 05/10/22 08:30 MDM - SOB/Dyspnea Medical Decision Making Patient labs were reviewed along with her x-ray. X-ray shows significant bilateral pleural effusion some interstitial edema most likely. Patient's symptoms improved following breathing treatments and Lasix. Case was discussed with Dr. Holbrook and will be admitted to him due to her significant effusions and edema and history of CHF. Patient was signed out to me by Dr. Daniel. I reviewed all his notes and agree with his HPI and physical exam. Patient was stable upon admission. Lab Data 05/10/22 05:25 05/10/22 05:25 Labs/Radiology: Radiology Impressions Chest X-Ray 05/10/22 03:49
--- NOTE | 2022-05-10 04:19 | ECG_ITS ---
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 Measurements Intervals [place] Rate: 94 P: 41 CA: 144 QRS: -38 QRSD: 108 T: 107 QT: 372 QTc: 467 Interpretive Statements SINUS RHYTHM POSSIBLE LEFT ATRIAL ENLARGEMENT [-0.1mV P-WAVE IN V1/V2] LEFT AXIS DEVIATION [QRS AXIS < -30] POSSIBLE RIGHT VENTRICULAR CONDUCTION DELAY [RSR (QR) IN V1/V2] PROBABLE ANTEROLATERAL MYOCARDIAL INFARCTION , OF INDETERMINATE AGE [35 ms Q WAVE IN I/aVL/V3-V6] Compared to ECG 04/04/2022 22:43:12 Left-axis deviation now present Incomplete right bundle-branch block no longer present Left anterior fascicular block no longer present Myocardial infarct finding still present Electronically Signed On 05-10-2022 10:06:47 FILAMENT SHAPER by Ed Webber M.D. [id number]
[2022-05-10 04:32] LABS: Influenza A by IFA negative (Negative); Influenza B by IFA negative (Negative); SARS Covid-2 Antigen negative (Negative)
[2022-05-10] MEDS: albuterol 2.5 mg/3 mL Neb INHALATION (04:40)
[2022-05-10 04:57] LABS: ABG PCO2 36.4 mmHg (35-45); ABG PH Result 7.47 (7.35-7.45); Arterial Blood Gas Hematocrit 39.1 % (37-47); Base Excess ABG 3.2 mmol/L (-2.0-2.0); Blood Gas Allen Test Pos; Blood Gas Sample Site Brachial, right; Blood Gas Sample Type Arterial; Carboxyhemoglobin 3.2 %THgb (0.4-20.1); HCO3 ABG 26.7 mmol/L (22-26); HGB O2 Sat 94.7 % (95-100); Methemoglobin 0.7 % (0.4-1.5); Oxygen Device NC; PO2 ABG 91.2 mmHg (80.0-100.0); Total Hemoglobin 12.7 g/dL (12-16)
[2022-05-10 05:42] LABS: Basophils # 0.1 10^3/uL (0.0-0.1); Basophils % 0.7 %; Eosinophils # 0.1 10^3/uL (0.0-0.8); Eosinophils % 0.8 %; Hematocrit 45.8 % (37.0-47.0); Hemoglobin 14.3 g/dL (11.5-15.3); Lymphocytes % 11.5 %; Mean Corpuscular HGB Conc 31.2 g/dL (30.0-36.0); Mean Corpuscular Hemoglobin 29.5 pg (28.0-34.0); Mean Corpuscular Volume 94.6 fl (81-99); Mean Platelet Volume 11.1 fL (7.4-10.4); Monocytes # 0.3 10^3/uL (0.2-0.9); Monocytes % 3.2 %; Neutrophils # 7.01 10^3/uL (1.8-7.7); Neutrophils % 83.6 %; Nucleated Red Blood Cells % 0 %; Platelet Count 257 10^3/cmm (130-400); Red Blood Count 4.84 10^6/uL (4.1-5.3); Red Cell Distribution Width 17.3 % (12.1-15.1); White Blood Count 8.4 10^3/uL (4.0-10.0)
[2022-05-10 06:09] LABS: Troponin(5th) Baseline 30 ng/L (0-10)
[2022-05-10 06:13] LABS: Slide Review Slide Review Perform
[2022-05-10 06:14] LABS: Alanine Aminotransferase 33 U/L (0-33); Albumin Level 4.3 g/dL (3.5-5.2); Alkaline Phosphatase 136 U/L (35-105); Anion Gap 16.8 (5-19); Aspartate Amino Transferase 35 U/L (0-32); Blood Urea Nitrogen 18 mg/dL (6-20); Calcium 9.4 mg/dL (8.5-10.5); Carbon Dioxide 26 mmol/L (22-29); Chloride 96 mmol/L (98-107); Globulin 4.1 g/dL (1.3-4.6); Glomerular Filtration Rate 73.7 mL/min (90-130); Glucose 102 mg/dL (65-115); NT Pro B Type Natriuretic Pept 9083 pg/mL (0-125); Osmolality Calculated 282 mOsm/kg (285-295); Potassium 3.8 mmol/L (3.5-5.1); Sodium 135 mmol/L (136-145); Total Bilirubin 0.8 mg/dL (0.15-1.2); Total Protein 8.4 g/dL (6.6-8.7)
[2022-05-10] MEDS: cefTRIAXone 1,000 MG in sodium chloride 0.9% (plus) 50 ML 100 MG IV (06:25)
--- NOTE | 2022-05-10 07:28 | ECG_ITS ---
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 Measurements Intervals [place] Rate: 105 P: 48 [place]: 156 QRS: -53 QRSD: 114 T: 98 QT: 351 QTc: 464 Interpretive Statements SINUS TACHYCARDIA POSSIBLE LEFT ATRIAL ENLARGEMENT [-0.1mV P-WAVE IN V1/V2] INCOMPLETE RIGHT BUNDLE BRANCH BLOCK [90+ ms QRS DURATION, TERMINAL R IN V1/V2, 40+ ms S IN I/aVL/V4/V5/V6] LEFT ANTERIOR FASCICULAR BLOCK [QRS AXIS <= -45, QR IN I, RS IN II] ANTEROSEPTAL MYOCARDIAL INFARCTION , OF INDETERMINATE AGE [40+ ms Q WAVE IN V1-V4] Compared to ECG 05/10/2022 04:19:08 Incomplete right bundle-branch block now present Left anterior fascicular block now present Sinus rhythm no longer present Myocardial infarct finding still present Electronically Signed On 05-10-2022 10:10:08 ADVERTISEMENT DISTRIBUTOR by Ed Webber M.D. [id number]
[2022-05-10] MEDS: FUROsemide 10 mg/mL SDV 4mL 40 MG IVP (08:27)
[2022-05-10 09:23] LABS: Troponin 5 2HR 20.13 ng/L (0-10)
[2022-05-10 09:27] LABS: Troponin 5 2HR Delta -9.87 ABS# (0-10)
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
--- NOTE | 2022-05-10 09:41 | ECG_ITS ---
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 Measurements Intervals [place] Rate: 97 P: 55 HI: 148 QRS: -47 QRSD: 113 T: 90 QT: 369 QTc: 470 Interpretive Statements SINUS RHYTHM POSSIBLE LEFT ATRIAL ENLARGEMENT [-0.1mV P-WAVE IN V1/V2] INCOMPLETE RIGHT BUNDLE BRANCH BLOCK [90+ ms QRS DURATION, TERMINAL R IN V1/V2, 40+ ms S IN I/aVL/V4/V5/V6] LEFT ANTERIOR FASCICULAR BLOCK [QRS AXIS <= -45, QR IN I, RS IN II] ANTEROSEPTAL MYOCARDIAL INFARCTION , OF INDETERMINATE AGE [40+ ms Q WAVE IN V1-V4] Compared to ECG 05/10/2022 07:28:17 Sinus tachycardia no longer present Myocardial infarct finding still present Electronically Signed On 05-10-2022 10:10:56 HEAD OF TRAINING AND DEVELOPMENT by dE Webber M.D. [id number]
[2022-05-10 10:25] LABS: Procalcitonin 0.05 ng/mL (0-0.5)
--- NOTE | 2022-05-10 12:49 | CTR_ITS ---
PROCEDURE INFORMATION: Exam: CT Chest Without Contrast; Diagnostic Exam date and time: 05/10/2022 5:30 PM Age: 56 years old Clinical indication: Shortness of breath; Additional info: Respiratory distress, evaluate size of effusions, eval pna TECHNIQUE: Imaging protocol: Diagnostic computed tomography of the chest without contrast. Radiation optimization: All CT scans at this facility use at least one of these dose optimization techniques: automated exposure control; mA and/or kV adjustment per patient size (includes targeted exams where dose is matched to clinical indication); or iterative reconstruction. COMPARISON: CT angio chest PE protcl [id number] 07/09/2021 9:27 AM RADIATION DOSE METRICS: Total DLP (mGy-cm): 228.68 FINDINGS: Lungs: Multiple indistinct in irregular shaped nodular opacities present peripherally within the mid to lower lung zones that have developed intermixed with some scattered indistinct centrilobular opacities latter which is likely secondary to bronchiolitis. Other pulmonary nodules are nonspecific and may be inflammatory, granulomatous or metastatic in nature. Pleural spaces: Moderate-sized bilateral pleural effusions that have developed with adjacent passive atelectasis at the lung bases. Heart: Heart is mildly enlarged increased in size from previous exam. Small company in pericardial effusion. Evidence of previous cardiac stenting. Moderate calcification of coronary arteries. Lymph nodes: Chronic granulomatous calcifications within the mediastinum, stable. Superimposed mild mediastinal lymphadenopathy slightly progressed, nonspecific. Vasculature: Unremarkable. No aortic aneurysm. Bones/joints: Unremarkable. No acute fracture. Soft tissues: Unremarkable. CT/CT chest con [id number] IMPRESSION: 1. Cardiomegaly mildly progressed from previous exam with interval development of bilateral pleural effusions that may be secondary to CHF. Adjacent bibasilar passive atelectasis. 2. Interval development of nonspecific pulmonary nodules both lung morley intermixed with mild bronchiolitis as discussed above. Continued follow-up advised. 3. Mild mediastinal lymphadenopathy slightly progressed from previous exam.
[2022-05-10] MEDS: enoxaparin 40 mg/0.4 mL Syringe SUBCUT (13:44)
[2022-05-10] MEDS: ipratropium-albuterol 3 mL Neb INHALATION ×3 (13:59→22:02)
--- NOTE | 2022-05-10 15:43 | PC.NURSE ---
Patient resting in bed, arrived to unit via WC, Delaney, VSS on RA. OOBTC and bathroom. Patient states that, I have my moms old oxygen tank I use it when I need it. Patient also states, I smoke pot also. . Patient is not c/o pain or discomfort. Room clean and clutter free with call light in reach.
[2022-05-10 16:21] LABS: Troponin 5 6HR 16.13 ng/L (0-10)
[2022-05-10] MEDS: budesonide 0.5 mg/2 mL Neb INHALATION (22:02)
[2022-05-11] VITALS (16 sets, daily range): BP systolic 102–116; BP diastolic 63–78; PULSE 76–111; RESP 14–20; TEMP 36.3–36.8; O2SAT 86–98
[2022-05-11] MEDS: ipratropium-albuterol 3 mL Neb INHALATION ×5 (01:35→21:46)
[2022-05-11 05:28] LABS: Basophils % 0.1 %; Hematocrit 38.6 % (37.0-47.0); Hemoglobin 11.7 g/dL (11.5-15.3); Lymphocytes # 0.6 10^3/uL (0.8-4.8); Lymphocytes % 7.7 %; Mean Corpuscular HGB Conc 30.3 g/dL (30.0-36.0); Mean Corpuscular Hemoglobin 29.5 pg (28.0-34.0); Mean Corpuscular Volume 97.5 fl (81-99); Mean Platelet Volume 11.1 fL (7.4-10.4); Monocytes # 0.2 10^3/uL (0.2-0.9); Monocytes % 3.1 %; Neutrophils # 6.59 10^3/uL (1.8-7.7); Neutrophils % 88.8 %; Nucleated Red Blood Cells % 0 %; Platelet Count 246 10^3/cmm (130-400); Red Blood Count 3.96 10^6/uL (4.1-5.3); Red Cell Distribution Width 17.2 % (12.1-15.1); White Blood Count 7.4 10^3/uL (4.0-10.0)
[2022-05-11] MEDS: clopidogrel 75 mg Tablet PO (05:41)
[2022-05-11] MEDS: aspirin 81 mg EC Tablet PO (05:41)
[2022-05-11 05:46] LABS: Alanine Aminotransferase 20 U/L (0-33); Alkaline Phosphatase 89 U/L (35-105); Anion Gap 12.1 (5-19); Aspartate Amino Transferase 21 U/L (0-32); Blood Urea Nitrogen 21 mg/dL (6-20); Calcium 8.8 mg/dL (8.5-10.5); Carbon Dioxide 24 mmol/L (22-29); Chloride 100 mmol/L (98-107); Globulin 3.6 g/dL (1.3-4.6); Glomerular Filtration Rate 85.9 mL/min (90-130); Glucose 135 mg/dL (65-115); Magnesium 1.8 mg/dL (1.7-2.3); Osmolality Calculated 279 mOsm/kg (285-295); Phosphorus 3.4 mg/dL (2.5-4.5); Potassium 4.1 mmol/L (3.5-5.1); Sodium 132 mmol/L (136-145); Total Bilirubin 0.5 mg/dL (0.15-1.2); Total Protein 6.6 g/dL (6.6-8.7)
[2022-05-11] MEDS: budesonide 0.5 mg/2 mL Neb INHALATION ×2 (08:10→21:46)
[2022-05-11] MEDS: azithromycin 250 mg Tablet PO (08:45)
[2022-05-11] MEDS: FUROsemide 10 mg/mL SDV 4mL 40 MG IVP (08:45)
[2022-05-11] MEDS: cholecalciferol (vitamin D3) 1,000 unit Tablet 1000 UNIT PO (08:45)
[2022-05-11] MEDS: ascorbic acid 500 mg Tablet PO (08:46)
--- NOTE | 2022-05-11 10:55 | PC.CHAP ---
Pastoral Care Encounter/Spiritual Assessment Type of Contact [] Declined installment account checker visit [] Patient/Family/Request visit [] Outpatient visit [] Follow-up visit [] Physician referral [] Code/Alert [x] Routine visit [] Staff referral [] Actively dying [] Patient sleeping [x] Family support [] [] Out of room [] Palliative care [] [] Receiving care in room [] Pre-surgical visit [] Trauma [x] Long length of stay [] ICU visit [] Other: Relational/Emotional Strength [x] Patient feels connected with others/family/visitors/staff [] Distress [] Loneliness/isolation [] Abandonment Spirituality of Patient [x] Person of Binta [] Attends Episcopal of their [place] [x] Believes in Prayer [] Reads Bible or Voodoo materials [] There are Spiritual issues to be addressed Electrotyper Apprentice Interventions [x] Prayer [x] Active listening [x] Non-anxious presence [x] Spiritual/emotional support [] Crisis/trauma care [] Spiritual counseling [] Bereavement support [] Provided bereavement packet [] Provided Bible/devotional materials [] Provided toy/stuffed animal, coloring book to patient or family member [] Provided Communion [] Anointing/[place] [] Salvation [x] Completed spiritual assessment [] Other: Impact on Illness or Injury [] Angry [] Fearful [] Anxious [] Often cries [] Exhaustion [] Unable to work [] Unable to attend scientologist [] Unable to walk/stand [] Unable to read [] Unable to drive [] Unable to eat/drink [] Unable to sleep [] Unable to be with family [] Patient intubated [] Other: Summary Time spent with patient 15 min
--- NOTE | 2022-05-11 13:13 | USCV_ITS ---
Melissa Benoit Age: 56 Gender: F : 1965 Exam Date: 05/11/2022 14:03 Ordering Phys: Jose Vilchis MD Technologist: Rd Delatorre [place]am Location[place] [facility] [place]ication: short of breath hx of mi BP: 125 / 72 HR: 110 Rhythm: Sinus Technical Quality: Adequate MEASUREMENTS (Male / Female) Normal Values 2D ECHO LV Diastolic Diameter PLAX 5.0 cm 4.2 - 5.9 / 3.9 - 5.3 cm LV Systolic Diameter PLAX 3.9 cm IVS Diastolic Thickness 1.1 cm 0.6 - 1.0 / 0.6 - 0.9 cm IVS Systolic Thickness 1.3 cm LVPW Diastolic Thickness 1.0 cm 0.6 - 1.0 / 0.6 - 0.9 cm LVPW Systolic Thickness 1.6 cm LVOT Diameter 2.0 cm LV Ejection Fraction 2D Teich 45.2 % LV Ejection Fraction MOD 2C 30.9 % LV Ejection Fraction 2C AL 31.2 % LA Diameter 3.6 cm Aorta at Sinotubular Diameter 2.3 cm M-MODE Aortic Annulus Diameter 3.1 cm LA Ao Ratio MM 1.1 MV E Point Septal Separation 2.4 cm DOPPLER AV Peak Velocity 130.0 cm/s LVOT Peak Velocity 103.0 cm/s AV Area Cont Eq vti 2.8 cm squared AV Area Cont Eq pk 2.5 cm squared MV Area PHT 5.0 cm squared Mitral E to A Ratio 0.9 MV E' Velocity 52.5 cm/s Mitral E to MV E' Ratio 12.0 Mitral E to LV E' Lateral Ratio 8.3 Mitral E to LV E' Septal Ratio 21.8 TR Peak Velocity 418.0 cm/s TR Peak Gradient 69.9 mmHg TV Peak E Velocity 137.0 cm/s Right Atrial Pressure 3.0 mmHg Pulmonary Artery Systolic Pressu 72.9 mmHg RV Acceleration Time 0.1 s FINDINGS Left Ventricle Left ventricle is normal in size. LV systolic function is severely reduced with EF of 30-35%. Severe global hypokinesis.[place] is akinetic. Right Ventricle Normal in size and function Right Atrium Normal in size Left Atrium Dilated Mitral Valve Structurally normal mitral valve. Mild to moderate mitral regurgitation. Aortic Valve Structurally normal aortic valve. No significant stenosis or regurgitation Tricuspid Valve Mild tricuspid regurgitation. RVSP is 70-75mmHg. This is consistent with severe pulmonary hypertension Pulmonic Valve Not well visualized Pericardium Small pericardial effusion is seen. Pleural effusion is seen Aorta Normal in size IVC Not well visualized CONCLUSIONS LV systolic function is severely reduced with EF of 25-30%. Left atrial dilation Mild to moderate mitral regurgitation Mild tricuspid regurgitation. To severe pulmonary hypertension Small pericardial effusion is seen. Pleural effusion is also noted Compared to prior echocardiogram from 06/2021 no significant changes are seen Denver Magdaleno MD (Electronically Signed) Final Date: 11 May 2022 18:01 S
--- NOTE | 2022-05-11 13:18 | P.PN_ITS ---
Subjective Subjective: Patient was seen and examined this morning she was complaining of shortness of breath, she also complaining of some anxiety. Medications: Medication Review Details: Generic Name Dose Route Start Last Admin Trade Name Emeli PRN Reason Stop Dose Admin Albuterol/Ipratrop ium 3 ml 05/10/22 12:49 05/11/22 11:32 Ipratropium-Albu terol 3 Ml Neb INHALATION 3 ml Q4H.RESPIRATORY S CH Administration Ascorbic Acid 500 mg 05/11/22 09:00 05/11/22 08:46 Ascorbic Acid 50 0 Mg Tablet PO 500 mg DAILY RASHIDA Administration Aspirin 81 mg 05/11/22 06:00 05/11/22 05:41 Aspirin 81 Mg Ec Tablet PO 81 mg QAM RASHIDA Administration Azithromycin 250 mg 05/11/22 09:00 05/11/22 08:45 Azithromycin 250 Mg Tablet PO 250 mg DAILY RASHIDA Administration Protocol Budesonide 0.5 mg 05/10/22 12:49 05/11/22 08:10 Budesonide 0.5 M g/2 Ml Neb INHALATION 0.5 mg BID.RESPIRATORY S CH Administration Clopidogrel Bisulf ate 75 mg 05/11/22 06:00 05/11/22 05:41 Clopidogrel 75 M g Tablet PO 75 mg QAM RASHIDA Administration Enoxaparin Sodium 40 mg 05/10/22 13:15 05/10/22 13:44 Enoxaparin 40 Mg /0.4 Ml Syringe SUBCUT 40 mg Q24H RASHIDA Administration Furosemide 40 mg 05/11/22 09:00 05/11/22 08:45 Furosemide 10 Mg /Ml Sdv 4ml IVP 40 mg DAILY RASHIDA Administration Vitamin D 1,000 unit 05/11/22 09:00 05/11/22 08:45 Cholecalciferol (Vitamin D3) 1,000 Unit Tablet PO 1,000 unit DAILY RASHIDA Administration Vitals/I&O/Wt Last Vital Signs Temp 98.1 F 05/11/22 12:00 Pulse 111 H 05/11/22 12:00 Resp 17 05/11/22 12:00 BP 103/63 05/11/22 12:00 Pulse Ox 93 05/11/22 12:00 O2 Del Method 05/11/22 11:32 O2 Flow Rate 2 05/10/22 08:30 05/10/22 05/11/22 05/11/22 22:59 06:59 14:59 Intake Total 540 / 590 240 / 240 Balance 540 / 590 240 / 240 Weight last 48 hrs Weight 54.658 kg Weight 54.431 kg Physical Exam Const: COMMON NORMALS: patient oriented x3 HENMT: COMMON NORMALS: normocephalic and atraumatic HEAD & SCALP: normocephalic and atraumatic Resp: COMMON NORMALS: normal respiratory effort, No retractions, No use of accessory muscles and clear to auscultation bilaterally EFFORT & INSPECTION: Yes symmetric chest movement AUSCULTATION: clear to auscultation bilaterally Cardio: COMMON NORMALS: regular rate, regular rhythm, S1 normal heart sound pr esent, S2 normal heart sound present, No gallops present (Cardio), No murmurs present (Cardio), No rub (Cardio) and Peripheral pulses 2+ throughout RATE: regular rate RHYTHM: regular rhythm HEART SOUNDS: S1 normal heart sound present and S2 normal heart sound present PERIPHERAL PULSES: Peripheral pulses 2+ throughout GI: COMMON NORMALS: Normal to inspection, nondistended, normoactive bowel sounds present, Soft to palpation, non-tender, No hepatosplenomegaly present and no masses AUSCULTATION: Yes normoactive bowel sounds PALPATION: Yes Soft to palpation and Yes No hepatosplenomegaly present RECTAL EXAM: deferred Extremity: COMMON NORMALS: no clubbing, cyanosis or edema and no pedal edema Neuro: COMMON NORMALS: patient oriented x3 Data 05/11/22 05:00 05/11/22 05:00 Micro: Microbiology 05/10/22 06:20 Blood Culture - Preliminary Blood NEGATIVE TO DATE 05/10/22 05:25 Blood Culture - Preliminary Blood NEGATIVE TO DATE A&P Assessment and plan (1) Acute exacerbation of chronic obstructive airways disease: Start Solumedrol Start Pulmicort Start scheduled DuoNebs Start azithromycin (2) Pleural effusion: Bilateral pleural effusion Chest CT; Results appreciated Continue I.V Diuresis (3) Acute exacerbation of CHF (congestive heart failure): 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 Lasix 40 mg IV daily Lisnopril :2.5 mg po daily Metoprolol .T : 12.5 MG PO BID Strict I&Os Daily weights Qualifiers: Heart failure type: unspecified Qualified Code(s): I50.9 - Heart failure, unspecified (4) Ischemic cardiomyopathy: Continue aspirin Continue Plavix (5) Tobacco use disorder: Smoking cessation discussed for greater than 10 minutes Consider Chantix at discharged Plan DVT ppx: Lovenox Code Status: Full Code Attestations Medical Necessity Statement*: Patient is to be in hospital for management decompensated heart failure. Coding Level of Care Code Acute Code for g Fwd Exam Detailed Diagnoses Acute exacerbation of chronic obstructive airways disease J44.1 Pleural effusion J90 Acute exacerbation of CHF (congestive heart failure) I50.9 Heart failure type: unspecified Ischemic cardiomyopathy I25.5 Tobacco use disorder F17.200
[2022-05-11] MEDS: enoxaparin 40 mg/0.4 mL Syringe SUBCUT (14:29)
[2022-05-11] MEDS: metoprolol tartrate 25 mg Tablet 12.5 MG PO (18:15)
[2022-05-12] VITALS (7 sets, daily range): BP systolic 101–113; BP diastolic 66–79; PULSE 83–102; RESP 18–23; TEMP 36.4–36.8; O2SAT 94–98
[2022-05-12] MEDS: ALPRAZolam 0.5 mg Tablet PO ×2 (00:15→06:38)
--- NOTE | 2022-05-12 00:18 | PC.NURSE ---
Patient hit her call light and stated Did the doctor prescribe me something to help me relax? You guys got me all fucking worked up from moving me and stuff. Patient given PRN Xanax.
--- NOTE | 2022-05-12 00:20 | PC.NURSE ---
this nurse entered pt room around 2129 to assist lab with blood draw on roommate. as soon as pt saw this nurse she sat bolt upright on side of bed exclaiming i cant take this shit, i'm out of here , referring to loud moaning sounds coming from her roommate which was a new admission and had been on the floor for a short time only. this nurse addressed the pt as to the issue stating that if she wanted to go for a walk down the el or sit in one of the chairs in the hallway while this nurse assisted lab, this nurse would work towards finding another room to move the pt to so that it would be quiet as soon as this nurse was done. the pt left the room and sat momentarily in the chair just outside, then came back in immediately and grabbed her things and stomped down the el towards the nurse's station. this nurse excused herself momentarily with lab to follow the pt to the desk and as coming toward her the pt shouted i'm calling my boyfriend and i want the fuck out of here . this nurse came to stand by the pt and stated concern over her leaving before she was medically cleared and stable to go, that leaving before she was better increased the chance that she may be right back within a day or so and that it would be safer to stay until she was ready to go. this nurse also stated that there was no intention to upset her to which the pt replied then why the fuck did you put her in my room this nurse stated that there was no way to know that the other pt would be making those sounds and be of that disposition. this nurse also reiterated that the pt would be put in another room. this nurse informed her of what room was planned to be switched to. the pt walked to new room 279-2 where there was a chair but no bed. this nurse went back to 277-1 and took pt bed to the new room, got pt in bed, hooked O2 up and gave pt call light within reach with side rails up x2. pt was quiet at this time, more calm and stated that she thought she was getting better this morning but that she didn't feel like it right now. this nurse stated again that that was exactly why it was so important for her to stay and left pt resting with eyes closed. pt mood continues to be labile, ranging from pleasant and polite to rude and hateful, asking nicely for ice chips from staff and the most recently cursing in conversation demanding something to calm her down since moving her around upset her. pt was given xanax by charge nurse per pt request. will continue to monitor at this time.
--- NOTE | 2022-05-12 01:41 | PC.NURSE ---
Aid walked into room to obtain vital signs , patient said they better hope this fucking xanax kicks in or I am leaving .
[2022-05-12] MEDS: ipratropium-albuterol 3 mL Neb INHALATION (04:10)
[2022-05-12] MEDS: aspirin 81 mg EC Tablet PO (05:31)
[2022-05-12] MEDS: clopidogrel 75 mg Tablet PO (05:31)
--- NOTE | 2022-05-12 06:39 | PC.NURSE ---
pt on side of bed, breathing labored and tachypnic. pt says she is having an anxiety attack and needs her xanax. medication is not due for another hour and a half. this nurse contacted dr acuna and was given telephone order to give xanax early. med given will continue to monitor.
[2022-05-12] MEDS: ascorbic acid 500 mg Tablet PO (08:46)
[2022-05-12] MEDS: azithromycin 250 mg Tablet PO (08:46)
[2022-05-12] MEDS: lisinopril 2.5 mg Tablet PO (08:46)
[2022-05-12] MEDS: cholecalciferol (vitamin D3) 1,000 unit Tablet 1000 UNIT PO (08:46)
[2022-05-12] MEDS: metoprolol tartrate 25 mg Tablet 12.5 MG PO (08:46)
[2022-05-12] MEDS: FUROsemide 10 mg/mL SDV 4mL 40 MG IVP (08:47)
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
== END 2022-05-12 11:54 | disposition home or self-care (01) ==
LOC: ER 09:35 → MEDSURG 11:59
PROVIDERS: Emergency Medicine; Admitting Provider Internal Medicine; Emergency Provider Student in an Organized Health Care Education/Training Program; Visit Provider Internal Medicine
DX: J44.1 Chronic obstructive pulmonary disease with (acute) exacerbation (principal); J90 Pleural effusion, not elsewhere classified; I50.9 Heart failure, unspecified; I25.5 Ischemic cardiomyopathy; F17.200 Nicotine dependence, unspecified, uncomplicated; I25.10 Atherosclerotic heart disease of native coronary artery without angina pectoris; I27.20 Pulmonary hypertension, unspecified; F41.9 Anxiety disorder, unspecified; I89.0 Lymphedema, not elsewhere classified; I25.2 Old myocardial infarction; Z99.81 Dependence on supplemental oxygen
CPT/HCPCS: 36415; 36600; 71045; 71250; 80053; 82805; 83735; 83880; 84100; 84145; 84484; 85025; 85610; 86140; 87040; 87426; 87804; 93005; 93306; 94640; 94760; 96365; 96367; 96372; 96375; 96376; 99285; G0378; J0456; J0696; J1650; J1940; J2920; J2930; J7050; J7613; J7626; Q0144

== ENCOUNTER → 2022-05-13 15:25 | Outpatient (BNVA) | payer MEDICAID, SELFPAY | PROVIDERS: Visit Provider Internal Medicine | DX: I25.119 Atherosclerotic heart disease of native coronary artery with unspecified angina pectoris (principal); I50.9 Heart failure, unspecified; F17.210 Nicotine dependence, cigarettes, uncomplicated | CPT/HCPCS: 99214 ==

== ENCOUNTER → 2022-06-23 14:08 | Outpatient (BNVA) | payer MEDICAID, SELFPAY | PROVIDERS: Visit Provider Thoracic Surgery (Cardiothoracic Vascular Surgery) | DX: I50.22 Chronic systolic (congestive) heart failure (principal); I25.5 Ischemic cardiomyopathy; F17.210 Nicotine dependence, cigarettes, uncomplicated | CPT/HCPCS: 99213 ==

== ENCOUNTER 2022-07-07 09:43 | Observation (INO) | payer MEDICAID, SELFPAY ==
[2022-07-02 10:09] VITALS: BMI 20.5
--- NOTE | 2022-07-02 10:27 | P.ANESASSM_ITS ---
Pre-Anesthetic Assessment Height/Weight: Height 1.63 m Weight 54.431 kg Preop Diagnosis: medically refractory chf Operation Date: 07/07/22 07:00 Proposed Procedures p Lien plcement 08396,I50.9(Not Applicable) - Alexei Mayo MD Familial anesthetic complications: None Social Tobacco and No alcohol Exam alert, oriented x 3, clear to auscultation bilaterally and regular rate & rhythm Airway Mallampati: Class II Dentition: false Pulmonary Chronic Obstructive Pulmonary Disease On O2 prn (2 L NC) - used mostly on days with lots of moisture or transitioning from warm to cold temperatures and with activity CV/HEM Coronary Artery Disease (stents (> 1 yr ago)), Congestive Heart Failure and Myocardial Infarction able to achieve 4 METS without symptoms, but she has to pace herself. Finding she's able to do less activities over time Echo CONCLUSIONS ?LV systolic function is severely reduced with EF of 25-30%. ?Left atrial dilation ?Mild to moderate mitral regurgitation ?Mild tricuspid regurgitation.? To severe pulmonary hypertension ?Small pericardial effusion is seen.? Pleural effusion is also ?noted Musc/skel Rheumatoid Arthritis Neuropsych Neuropathy Anesthetic Plan ASA status: 4 Anesthesia: MAC Risk of > 500 ml blood loss (7ml/kg in children): No Medications/Allergies Home Medications Medication Instructions Recorded Confirmed Last Taken Type ascorbic acid (vitamin C) 500 mg 500 mg PO DAILY 04/02/22 07/02/22 07/01/22 History tablet (Vitamin C) aspirin 81 mg tablet,delayed 81 mg PO QAM 04/02/22 07/02/22 07/01/22 History release cholecalciferol (vitamin D3) 25 25 mcg PO DAILY 04/02/22 07/02/22 07/01/22 History mcg (1,000 unit) tablet (Vitamin D3) clopidogrel 75 mg tablet 75 mg PO QAM 04/02/22 07/02/22 07/01/22 History furosemide 40 mg tablet (Lasix) 40 mg PO DAILY 30 days #30 tabs 05/12/22 07/02/22 07/01/22 Rx lisinopril 2.5 mg tablet 2.5 mg PO DAILY 30 days #30 tabs 05/12/22 07/02/22 07/01/22 Rx metoprolol succinate 25 mg 12.5 mg PO BID #60 tabs 05/12/22 07/02/22 07/01/22 Rx tablet,extended release 24 hr potassium chloride 20 mEq 20 meq PO DAILY #30 tabs 05/12/22 07/02/22 07/01/22 Rx tablet,extended release(part/cryst) (Klor-Con M) Allergies Allergy/AdvReac Type Severity Reaction Status Date / Time Opioids - Morphine Analogues AdvReac Intermediate ADR-Nausea Verified 07/02/22 10:04 [facility] Anesthesia Medical History Acute exacerbation of CHF (congestive heart failure) Acute exacerbation of chronic obstructive airways disease Acute exacerbation of chronic obstructive airways disease Acute hypoxemic respiratory failure Atherosclerosis of coronary artery Dyspnea on exertion Hypoxia Ischemic cardiomyopathy Orthopnea Ovarian cyst Pleural effusion STEMI (ST elevation myocardial infarction) Tobacco abuse Tobacco use disorder Surgical History H/O tubal ligation H/O: hysterectomy History of appendectomy History of laparotomy Family History Other CHF (congestive heart failure) Social History Smoking and tobacco status: current every day smoker cigarettes Packs smoked per day: 0.5 Alcohol intake: never Lives independently: Yes Household members: significant other Marital status: Life Partner Current occupational status: disabled Data Anesthesia Cardiac Studies: Echocardiogram 05/11/22 Echocardiogram Limited Views 07/08/21
[2022-07-02 10:59] LABS: Basophils % 0.6 %; Eosinophils # 0.1 10^3/uL (0.0-0.8); Eosinophils % 1.3 %; Hematocrit 40.5 % (37.0-47.0); Hemoglobin 12.3 g/dL (11.5-15.3); Lymphocytes % 14.8 %; Mean Corpuscular HGB Conc 30.4 g/dL (30.0-36.0); Mean Corpuscular Hemoglobin 27.2 pg (28.0-34.0); Mean Corpuscular Volume 89.4 fl (81-99); Mean Platelet Volume 10.5 fL (7.4-10.4); Monocytes # 0.5 10^3/uL (0.2-0.9); Neutrophils # 5.07 10^3/uL (1.8-7.7); Nucleated Red Blood Cells % 0 %; Platelet Count 256 10^3/cmm (130-400); Red Blood Count 4.53 10^6/uL (4.1-5.3); Red Cell Distribution Width 18.3 % (12.1-15.1); White Blood Count 6.7 10^3/uL (4.0-10.0)
[2022-07-02 11:04] LABS: Add Urine Culture? No; Add Urine Microscopic? YES; Bacteria Urine TRACE /hpf; Bilirubin Urine Neg (Negative); Blood Urine Neg (Negative); Glucose Urine UA Norm (Normal); Ketones Urine Negative (Negative); Leukocyte Esterase Urine Negative (Negative); Nitrate Urine Negative (Negative); Protein Urine Neg (Negative); Specific Gravity, Urine 1.025 (1.005-1.030); Urine Appearance Hazy (CLEAR); Urine Color Yellow (Yellow); Urobilinogen Urine Neg (Negative); pH Urine 5 (5-7)
[2022-07-02 11:20] LABS: Anion Gap 12.7 (5-19); Blood Urea Nitrogen 25 mg/dL (6-20); Calcium 9.5 mg/dL (8.5-10.5); Carbon Dioxide 32 mmol/L (22-29); Chloride 100 mmol/L (98-107); Creatinine Clr Calc Pharmacy 58.0044; Glomerular Filtration Rate 64.1 mL/min (90-130); Glucose 90 mg/dL (65-115); Osmolality Calculated 296 mOsm/kg (285-295); Potassium 3.7 mmol/L (3.5-5.1); Sodium 141 mmol/L (136-145)
[2022-07-07] VITALS (18 sets, daily range): BP systolic 95–129; BP diastolic 59–92; PULSE 86–101; RESP 14–21; TEMP 36.2–36.8; O2SAT 89–100; BMI 20.5
--- NOTE | 2022-07-07 05:51 | SC_ITS ---
WS: [id number] C-arm FL for Pacemaker REASON FOR EXAM: AICD implantation FINDINGS: Cardiac device over the left chest. Cardiac device lead from the SVC, right atrium into the right ventricular apex. SC/C-arm FL for Pacemaker IMPRESSION: Cardiac device placement as above.
[2022-07-07] MEDS: sodium chloride 0.9% 1,000 ML 30 ML IV (06:19)
--- NOTE | 2022-07-07 06:29 | W.PM.OPSUD ---
Surgery/Procedure H&P Update DATE OF PROCEDURE: July 07, 2022 DATE H&P PERFORMED: 06/23/22 H&P UPDATE INFORMATION: I have reviewed H&P completed within last 30 days, I have examined patient prior to procedure and No changes to prior documentation CHANGES TO PREVIOUS DOCUMENTATION: I again carefully discussed the general conduct of the procedure as well as specific risk related to potential for pneumothorax, major bleeding, infection, migration of the lead requiring revision, inability to adequately place the lead, pain at insertion site, and need for long-term follow-up. Her relatively small stature and chronic obstructive airway disease will place her at increased risk for pneumothorax, or other pulmonary complications. She wishes to proceed. PREOP DIAGNOSIS: AICD implantation PRIMARY INDICATION FOR PROCEDURE: Primary prevention secondary to medically refractory congestive heart failure and ischemic cardiomyopathy PLANNED PROCEDURE: Operation Date: 07/07/22 07:00 Proposed Procedures p Defib plcement 55879,I50.9(Not Applicable) - Alexei Mayo MD
[2022-07-07] MEDS: ceFAZolin 2,000 MG in sodium chloride 0.9% (plus) 50 ML 100 MG IV ×3 (07:00→22:03)
[2022-07-07] MEDS: lidocaine 2% INJ 20 mL INJECTION (07:30)
[2022-07-07 07:31] LABS: Anion Gap 13.8 (5-19); Blood Urea Nitrogen 19 mg/dL (6-20); Calcium 8.7 mg/dL (8.5-10.5); Carbon Dioxide 29 mmol/L (22-29); Chloride 99 mmol/L (98-107); Creatinine Clr Calc Pharmacy 58.0044; Glomerular Filtration Rate 64.1 mL/min (90-130); Glucose 95 mg/dL (65-115); Osmolality Calculated 288 mOsm/kg (285-295); Potassium 3.8 mmol/L (3.5-5.1); Sodium 138 mmol/L (136-145)
[2022-07-07] MEDS: ceFAZolin 1,000 mg SDV 1000 MG IRRIGATION (07:33)
--- NOTE | 2022-07-07 08:39 | PM.OP ---
Operative Report Date of procedure: July 07, 2022 Pre-op diagnosis: Preop Diagnosis congestive heart failure: AICD implantation Post-op diagnosis: same Procedure done: Automatic implantable cardiac defibrillator implantation Implants: AICD generator AICD right ventricular lead Pathology: none sent Surgeon: Alexei Mayo Anesthesia: MAC and Local Complications: None Condition: stable Disposition: PACU Brief History: Ms. Benoit is a 57-year-old female with ischemic cardiomyopathy and refractory congestive heart failure despite maximal medical management. AICD implantation has been recommended as primary prevention therapy. Echocardiogram revealed ejection fraction of 20 to 25%. Rationale, details and risk of the procedure were carefully and frankly discussed. Proper consents have been reviewed and signed. Procedure: Procedure: Ms. Benoit was taken to the OR suite and placed in the supine position over a shoulder roll. She received conscious sedation with continuous anesthesia monitoring by. Her entire chest was sterilely prepped and draped. 1% lidocaine was infiltrated in the left subclavicular region. While in Trendelenburg position, utilizing modified seldinger technique, a guidewire was placed in the left subclavian vein. This was confirmed in position by fluoroscopy. Next, after infiltration with lidocaine, a subcutaneous pocket was created beginning from the exit point of the guidewire and extending laterally and inferiorly. Cautery was utilized to create the pocket just above the pectoralis musculature. Hemostasis was confirmed. An antibiotic-soaked sponge was placed in the wound. A dilator and tear-away sheath was placed over the guidewire and advanced under fluoroscopy. Guidewire and dilator were removed. Next using a combination of curved and straight stylettes, the right ventricular lead was placed in position by fluoroscopy. The distal screw was extended. Interrogation was then performed confirming appropriate parameters. The tear-away sheath was then removed and the ventricular lead was sewn to the floor of the subcutaneous pocket. AICD generator was brought into the field, and after confirmation of hemostasis in the subcutaneous pocket, the lead was connected to the generator with appropriate capture. The entire system was interrogated by fluoroscopy. Lead and generator were secured in the pocket. Sponge and needle count was correct. The wound was then closed in 2 layers of 3-0 Vicryl suture. Skin was reapproximated in a subcuticular manner with 4-0 Monocryl suture. A pressure dressing was applied. The left arm was placed in a sling. Ms. Benoit had equal breath sounds bilaterally. She was then transferred to the PACU, where chest x-ray is currently pending. I did career development counselor with her at the completion of the procedure. Following are the specifics of this system: Right ventricular lead is 55 cm and model 6935M Serial number: [id number] Ventricular lead had sensing of 7.7 mV with an impedance of 430 ohms. Threshold was 0.7 V [employer] AICD generator: Model # [id number] Serial #[id number]
--- NOTE | 2022-07-07 08:46 | XR_ITS ---
WS: [id number] XR chest 1V portable [id number] REASON FOR EXAM: post op ICD FINDINGS: Cardiac device in place over the left chest with left subclavian lead to the right ventricular apex. Mild cardiomegaly. Coarse reticular interstitial densities throughout both lung morley more notable in the lower lung fi elds. These opacities appear to be chronic, present on previous examinations without interval change. No left pneumothorax. The chest appears stable compared to 04/05/2022. XR/XR chest 1V portable [id number] IMPRESSION: Post cardiac device placement as above. No acute abnormality.
--- NOTE | 2022-07-07 09:01 | P.ANESUD_ITS ---
Pre-Anesthetic Update Pre-Anesthetic Assessment: Date of Surgery/Procedure: 07/07/22 Preop Magalie gnosis: AICD implantation Proposed Procedure: Operation Date: 07/07/22 07:00 Proposed Procedures p Defib plcement 85492,I50.9(Not Applicable) - Alexei Mayo MD Any changes to Pre-Anesthetic Assessment?: No Last Intake: Intake Last Liquid Date 07/06/22 Last Liquid Time 23:59 Last Solid Date 07/06/22 Last Solid Time 22:00 Labs Last 48hrs: BMP 07/07/22 07:00 Sodium 138 Potassium 3.8 Chloride 99 Carbon Dioxide 29 BUN 19 Creatinine 0.9 Glucose 95 Calcium 8.7 Vitals: Temperature 97.3 F L 07/07/22 08:41 Temperature Source Temporal Artery S can 07/07/22 08:41 Pulse Rate 87 07/07/22 08:41 Respiratory Rate 20 H 07/07/22 08:41 Blood Pressure 129/89 07/07/22 08:41 Blood Pressure Sarah n 102 07/07/22 08:41 Pulse Oximetry 100 07/07/22 08:41 Oxygen Delivery Me thod 07/07/22 08:41 Oxygen Flow Rate 8 07/07/22 08:41 Exam: Pre-Anes Outpt Exam: alert, oriented x 3, clear to auscultation bilaterally and regular rate & rhythm Cardiac Studies: Echocardiogram 05/11/22 Echocardiogram Limited Views 07/08/21
[2022-07-07] MEDS: HYDROcodone-acetaminophen 5-325 mg Tablet 1 TAB PO ×2 (11:34→19:25)
[2022-07-07] MEDS: metoprolol succinate ER (24 HR) 25 mg Tablet 12.5 MG PO ×2 (11:35→18:31)
[2022-07-07] MEDS: potassium chloride ER 20 mEq Tablet PO (11:35)
[2022-07-07] MEDS: pantoprazole DR 40 mg Tablet PO (11:35)
[2022-07-07] MEDS: FUROsemide 40 mg Tablet PO (11:35)
--- NOTE | 2022-07-07 14:00 | ANE.PACU2 ---
Inpatient post-anesthesia follow up: Airway intact: Yes Vital signs: Temperature 97.7 F Pulse Rate 93 Respiratory Rate 18 Blood Pressure 128/86 Pulse Oximetry 89 Oxygen Delivery Me thod Room Air Oxygen Flow Rate 8 Fraction of Inspir ed Oxygen Hydration adequate: Yes Nausea and vomiting: No Pain level: 2 Mental status: Baseline
[2022-07-08] VITALS: BP 104/67; PULSE 94; RESP 15; TEMP 36.8; O2SAT 92
[2022-07-08 04:20] VITALS: BP 103/63; PULSE 87; RESP 15; TEMP 36.9; O2SAT 91
[2022-07-08] MEDS: HYDROcodone-acetaminophen 5-325 mg Tablet 1 TAB PO (04:21)
--- NOTE | 2022-07-08 04:43 | PM.DCS ---
Discharge Providers Date of Admission: 07/07/22 09:43 Date of Discharge: July 08, 2022 Attending Provider at Admission: Alexei Mayo MD Attending Provider at Discharge: Alexei Mayo MD Reason for Visit Reason for Visit: I50.9 Brief History: 57-year-old female with congestive heart failure and medically refractory ischemic cardiomyopathy admitted for AICD implantation for primary prevention. Hospital Course Hospital Course Ms. Benoit was electively admitted for planned AICD implantation for primary prevention due to congestive heart failure and ischemic cardiomyopathy, medically refractory. She underwent AICD implantation on July 07. Postoperatively, she convalesced on the medical/surgical russo. She remained hemodynamically stable. Postop discomfort under good control. She slept well last night. Tolerating diet well. Incision line on postop day 1 is clean, dry, and intact. No substantial swelling noted. No ecchymosis. No erythema. No drainage. She will be discharged home today with limited activities with the left upper extremity for 2 weeks. She will follow-up in the [facility] pacemaker clinic in 1 week. At the time of discharge, she is in stable condition. Physical Exam Chest: COMMONS NORMALS: normal inspection of the chest and normal palpation of entire chest wall OTHER: Incision line clean, dry, and intact. No local swelling. No erythema. No ecchymosis. Resp: COMMON NORMALS: normal respiratory effort and clear to auscultation bilaterally AUSCULTATION: clear to auscultation bilaterally Cardio: COMMON NORMALS: regular rate, regular rhythm, S1 normal heart sound present and No murmurs present (Cardio) RATE: regular rate RHYTHM: regular rhythm HEART SOUNDS: S1 normal heart sound present Extremity: COMMON NORMALS: no clubbing, cyanosis or edema Discharge Data Studies Completed and Pending Completed Studies During Hospitalization Category Date Time Status XR chest 1V portable [id number] Routine Exams 07/07/22 08:46 Completed Radiology Impressions C-Arm Fluoroscopy 07/07/22 05:51 IMPRESSION: Cardiac device placement as above. Chest X-Ray 07/07/22 08:46 IMPRESSION: Post cardiac device placement as above. No acute abnormality. Laboratory Results WBC 6.7 10^3/uL (4.0-10.0) 07/02/22 10:17 RBC 4.53 10^6/uL (4.1-5.3) 07/02/22 10:17 Hgb 12.3 g/dL (11.5-15.3) 07/02/22 10:17 Hct 40.5 % (37.0-47.0) 07/02/22 10:17 MCV 89.4 fl (81-99) 07/02/22 10:17 MCH 27.2 pg (28.0-34.0) L 07/02/22 10:17 MCHC 30.4 g/dL (30.0-36.0) 07/02/22 10:17 RDW 18.3 % (12.1-15.1) H 07/02/22 10:17 Plt Count 256 10^3/cmm (130-400) 07/02/22 10:17 MPV 10.5 fL (7.4-10.4) H 07/02/22 10:17 Neut % (Auto) 76.0 % 07/02/22 10:17 Lymph % (Auto) 14.8 % 07/02/22 10:17 Frio % (Auto) 7.0 % 07/02/22 10:17 Eos % (Auto) 1.3 % 07/02/22 10:17 Baso % (Auto) 0.6 % 07/02/22 10:17 Neut # (Auto) 5.07 10^3/uL (1.8-7.7) 07/02/22 10:17 Lymph # (Auto) 1.0 10^3/uL (0.8-4.8) 07/02/22 10:17 Frio # (Auto) 0.5 10^3/uL (0.2-0.9) 07/02/22 10:17 Eos # (Auto) 0.1 10^3/uL (0.0-0.8) 07/02/22 10:17 Baso # (Auto) 0.0 10^3/uL (0.0-0.1) 07/02/22 10:17 Nucleated RBC % (auto) 0 % 07/02/22 10:17 Nucleated RBCs # 0.0 /100WBC 07/02/22 10:17 Sodium 138 mmol/L (136-145) 07/07/22 07:00 Potassium 3.8 mmol/L (3.5-5.1) 07/07/22 07:00 Chloride 99 mmol/L (98-107) 07/07/22 07:00 Carbon Dioxide 29 mmol/L (22-29) 07/07/22 07:00 Anion Gap 13.8 (5-19) 07/07/22 07:00 BUN 19 mg/dL (6-20) 07/07/22 07:00 Creatinine 0.9 mg/dL (0.5-0.9) 07/07/22 07:00 GFR Calculation 64.1 mL/min (90-130) L 07/07/22 07:00 Glucose 95 mg/dL (65-115) 07/07/22 07:00 Calculated Osmolality 288 mOsm/kg (285-295) 07/07/22 07:00 Calcium 8.7 mg/dL (8.5-10.5) 07/07/22 07:00 Urine Color Yellow (Yellow) 07/02/22 10:01 Urine Appearance Hazy (CLEAR) A 07/02/22 10:01 Urine pH 5 (5-7) 07/02/22 10:01 Ur Specific [place] 1.025 (1.005-1.030) 07/02/22 10:01 Urine Protein Neg (Negative) 07/02/22 10:01 Urine Glucose (UA) Norm (Normal) 07/02/22 10:01 Urine Ketones Negative (Negative) 07/02/22 10:01 Urine Blood Neg (Negative) 07/02/22 10:01 Urine Nitrate Negative (Negative) 07/02/22 10:01 Urine Bilirubin Neg (Negative) 07/02/22 10:01 Urine Urobilinogen Neg mg/dL (Negative) 07/02/22 10:01 Ur Leukocyte Esterase Negative (Negative) 07/02/22 10:01 Urine RBC None /hpf (0-2) 07/02/22 10:01 Urine WBC None /hpf (0-5) 07/02/22 10:01 Ur Squamous Epith Cells 10-15 /hpf (0-5) H 07/02/22 10:01 Amorphous Sediment Not Reportable 07/02/22 10:01 Urine Bacteria Trace /hpf (NONE) 07/02/22 10:01 Procedures Performed AICD implantation on July 07, 2022 Vitals Last Vital Signs Temp 98.4 F 07/08/22 04:20 Pulse 87 07/08/22 04:20 Resp 15 07/08/22 04:20 BP 103/63 07/08/22 04:20 Pulse Ox 91 07/08/22 04:20 O2 Del Method 07/08/22 04:20 O2 Flow Rate 8 07/07/22 08:41 Discharge Plan Discharge Patient Disposition: Home Condition: Stable Prescriptions: New hydrocodone-acetaminophen 5-325 mg Tablet 1 tab PO Q6H PRN (Reason: Moderate Pain) Qty: 12 0RF sulfamethoxazole-trimethoprim [Bactrim DS] 800-160 mg tablet 1 tab PO BID Qty: 6 0RF Continued lisinopril 2.5 mg tablet 2.5 mg PO DAILY Qty: 90 3RF furosemide [Lasix] 40 mg tablet 40 mg PO DAILY 30 Days Qty: 30 3RF potassium chloride [Klor-Con M20] 20 mEq tablet,ER particles/crystals 20 meq PO DAILY Qty: 30 1RF metoprolol succinate 25 mg tablet extended release 24 hr 12.5 mg PO BID Qty: 60 1RF ascorbic acid (vitamin C) [Vitamin C] 500 mg Tablet 500 mg PO DAILY cholecalciferol (vitamin D3) [Vitamin D3] 25 mcg (1,000 unit) Tablet 25 mcg PO DAILY clopidogrel 75 mg tablet 75 mg PO QAM aspirin 81 mg tablet,delayed release (DR/EC) 81 mg PO QAM Discharge Orders: Discharge Order (Routine); Ordered 07/08/22 Ordered By: Alexei Mayo Referrals: [facility] [Provider Group] - 1 week (Pacemaker Clinic) Discharge Diet: Usual diet Discharge Activity: Limit activity as instructed Patient Instructions: Opioid Safety Activity Restrictions/Additional Instructions: May remove bandage in 2 days May begin daily showers in 3 days Dry incision carefully after showers. May re-cover if desired to prevent irritation from clothing. No swimming or tub baths x 2 weeks No ointments on incision Report drainage, redness, heat, increased pain, or swelling to clinic Do not lift left hand above eye level for 1 week No heavy lifting or pulling x2 weeks Do not resume 81 mg aspirin until July 09. Do not resume Plavix (clopidogrel) until July 10 Discharge Attestations Time Spent in Discharge Care*: less than 30 min Specific Discharge Activities: educating patient, documenting/other paperwork and evaluating patient/reviewing data Time Spent in Smoking Cessation: 3 to 10 minutes Status at Discharge: Cognitive status at discharge: cognitively intact, Behavioral status at discharge: cooperative, Functional status at discharge: independent ambulation, Overall status at discharge: patient is back to baseline Quality Metrics Clinical Quality Measures [ No reported AMI, CVA or VTE this stay] Coding Level of Care Code Acute Code for Chg Fwd
[2022-07-08] MEDS: ceFAZolin 2,000 MG in sodium chloride 0.9% (plus) 50 ML 100 MG IV (06:13)
[2022-07-08 06:25] VITALS: PULSE 90
[2022-07-08 07:56] VITALS: BP 111/76; PULSE 89; RESP 16; TEMP 36.8; O2SAT 95
[2022-07-08] MEDS: metoprolol succinate ER (24 HR) 25 mg Tablet 12.5 MG PO (08:18)
[2022-07-08] MEDS: pantoprazole DR 40 mg Tablet PO (08:18)
[2022-07-08] MEDS: FUROsemide 40 mg Tablet PO (08:18)
[2022-07-08] MEDS: potassium chloride ER 20 mEq Tablet PO (08:18)
[2022-07-08] MEDS: lisinopril 2.5 mg Tablet PO (08:18)
== END 2022-07-08 09:00 | disposition home or self-care (01) ==
LOC: MEDSURG 09:50
PROVIDERS: Anesthesiology; Admitting Provider Thoracic Surgery (Cardiothoracic Vascular Surgery); Visit Provider Thoracic Surgery (Cardiothoracic Vascular Surgery)
PROC: 0JH608Z Insertion of Defibrillator Generator into Chest Subcutaneous Tissue and Fascia, Open Approach (ICD-10-PCS; CPT 33249; principal; 2022-07-07 07:00)
DX: I50.9 Heart failure, unspecified (principal); I25.5 Ischemic cardiomyopathy; Z79.82 Long term (current) use of aspirin; I25.2 Old myocardial infarction; F17.210 Nicotine dependence, cigarettes, uncomplicated
CPT/HCPCS: 33249; 71045; 76000; 80048; 81001; 85025; C1722; G0378; J0690; J1100; J1885; J2250; J2405; J2704; J7030

== ENCOUNTER → 2022-07-21 10:04 | Outpatient (BNVA) | payer MEDICAID, SELFPAY | PROVIDERS: Visit Provider Nurse Practitioner Family | DX: Z95.810 Presence of automatic (implantable) cardiac defibrillator (principal) | CPT/HCPCS: 93289; 99024; 99213 ==

== ENCOUNTER → 2022-09-01 09:30 | Outpatient (BNVA) | payer MEDICAID, SELFPAY | PROVIDERS: Visit Provider Internal Medicine | DX: Z45.02 Encounter for adjustment and management of automatic implantable cardiac defibrillator (principal) | CPT/HCPCS: 93296 ==

== ENCOUNTER → 2022-10-29 11:49 | Outpatient (BNVA) | payer MEDICAID, SELFPAY | PROVIDERS: Visit Provider Internal Medicine Cardiovascular Disease | DX: I25.2 Old myocardial infarction (principal); I25.119 Atherosclerotic heart disease of native coronary artery with unspecified angina pectoris; Z95.810 Presence of automatic (implantable) cardiac defibrillator; I25.5 Ischemic cardiomyopathy; Z72.0 Tobacco use | CPT/HCPCS: 99213 ==

== ENCOUNTER → 2022-12-22 15:14 | Outpatient (BNVA) | payer MEDICAID, SELFPAY | PROVIDERS: Visit Provider Internal Medicine | DX: Z45.02 Encounter for adjustment and management of automatic implantable cardiac defibrillator (principal) | CPT/HCPCS: 93296 ==

== ENCOUNTER → 2023-03-31 17:05 | Outpatient (BNVA) | payer MEDICAID, SELFPAY | PROVIDERS: Visit Provider Internal Medicine | DX: Z45.02 Encounter for adjustment and management of automatic implantable cardiac defibrillator (principal) | CPT/HCPCS: 93296 ==

== ENCOUNTER → 2023-07-01 14:09 | Outpatient (BNVA) | payer MEDICAID, SELFPAY | PROVIDERS: Visit Provider Internal Medicine | DX: I25.119 Atherosclerotic heart disease of native coronary artery with unspecified angina pectoris (principal); I50.9 Heart failure, unspecified; Z72.0 Tobacco use; Z95.810 Presence of automatic (implantable) cardiac defibrillator; Z79.82 Long term (current) use of aspirin | CPT/HCPCS: 99214 ==

== ENCOUNTER → 2023-12-30 13:18 | Outpatient (BNVA) | payer MEDICAID, SELFPAY | PROVIDERS: Visit Provider Internal Medicine | DX: I25.119 Atherosclerotic heart disease of native coronary artery with unspecified angina pectoris (principal); I50.9 Heart failure, unspecified; Z72.0 Tobacco use | CPT/HCPCS: 99214 ==

== ENCOUNTER 2024-01-14 06:20 | Outpatient (CLI) | payer MEDICAID, SELFPAY ==
--- NOTE | 2024-01-14 06:45 | USCV_ITS ---
Melissa Benoit Age: 58 Gender: F : 1965 Exam Date: 01/14/2024 06:39 Ordering Phys: Denver Magdaleno M.D ([email or web address]) Technologist: SILVER Exam Location: [facility] Indication: LE Pain Risk Factors: Previous Vascular Surgery: RIGHT LEFT BP: 111.0 / 68.00 BP: 112.0/ 65.00 0 0 Waveform Velocity (cm/s) Velocity (cm/s) Waveform Triphasic 135.6 Iliac Prox 110.5 Triphasic Triphasic 152.9 Iliac Mid 120.6 Triphasic Triphasic 140.4 Iliac Distal 134.9 Triphasic Triphasic 165.0 SECURITIES SALES ASSOCIATE 140.0 Triphasic Triphasic 135.0 SFA Prox 96.0 Triphasic Triphasic 125.0 SFA Mid 115.0 Triphasic Triphasic 90.0 SFA Dist 108.0 Triphasic Triphasic 56.0 POP 61.0 Triphasic Triphasic 99.0 PROPERTY MANAGEMENT COORDINATOR 86.0 Triphasic Triphasic 55.0 DPA 70.0 Triphasic 1.1 LEVI 1.1 FINDINGS Triphasic arterial Doppler waveforms bilaterally. Normal Doppler flow velocities bilaterally. Resting LEVI 1.1 on both sides Intimal thickening and minimal plaques were noted in the iliac and femoral arteries bilaterally CONCLUSIONS 1. Normal resting ABIs bilaterally 2. Normal arterial Doppler waveforms and velocities 3. Intimal thickening and minimal plaques in the iliac and femoral arteries bilaterally 4. No significant arterial obstruction, based on the above findings Dr Boubacar Jasso MD [facility] (Electronically Signed) Final Date: 14 January 2024 18:13 S
== END 2024-01-14 06:21 | disposition home or self-care (01) ==
LOC: RAD 06:21
PROVIDERS: Visit Provider Internal Medicine
DX: I74.5 Embolism and thrombosis of iliac artery (principal); M79.604 Pain in right leg; M79.605 Pain in left leg; R25.2 Cramp and spasm
CPT/HCPCS: 93925

== ENCOUNTER → 2024-01-19 08:41 | Outpatient (BNVA) | payer MEDICAID, SELFPAY | PROVIDERS: Visit Provider Internal Medicine | DX: Z45.02 Encounter for adjustment and management of automatic implantable cardiac defibrillator (principal) | CPT/HCPCS: 93296 ==

== ENCOUNTER 2024-04-26 00:40 | Emergency (ER) | payer MEDICAID, SELFPAY ==
[2024-04-26 00:42] VITALS: BP 133/83; PULSE 77; RESP 16; TEMP 36.6; O2SAT 98
--- NOTE | 2024-04-26 00:54 | W.ED.CHESTPA ---
Documented by User: DENISA Doyle 04/26/24 01:29 HPI - Chest Pain General: Chief Complaint: Chest Pain Stated Complaint: anxiety Time Seen by Provider: 04/26/24 00:42 Source: patient Mode of arrival: EMS Limitations: no limitations History of Present Illness: Patient is a 58-year-old female with a history of ischemic cardiomyopathy with ICD and previous STEMI with PCI of LAD here for complaints of chest pain, anxiety, and feeling like her defibrillator went off. She was reportedly riding in her truck with her brother when they got pulled over by police. The brother reportedly had guns in his vehicle. Patient states she already has a felony charge and police were wanting to take her to half-way and charged her because of the guns. Patient states she got worked up and fell like she had a panic attack and developed chest pain and felt like her defibrillator went off following this. Patient states she sees Dr. Colunga for cardiology. Last appointment was in December. Upon arrival to the emergency department she is tearful and anxious. Onset (ago): hour(s) Onset: other (during stress) Pain location: substernal Pain radiation: none Severity: mild Relieving factors: nothing Exacerbating factors: stress Associated symptoms: Reports no associated symptoms; Deny dyspnea, fever(s), nausea, syncope or vomiting Treatment prior to arrival: none Risk Factors: Coronary artery disease risk factors: smoking history, hyperlipidemia and hypertension Thoracic aortic dissection risk factors: none Related Data Home Medications Medication Instructions Recorded Confirmed ascorbic acid (vitamin C) 500 mg 500 mg PO DAILY 04/02/22 12/30/23 tablet (Vitamin C) aspirin 81 mg tablet,delayed 81 mg PO QAM 04/02/22 12/30/23 release cholecalciferol (vitamin D3) 25 25 mcg PO DAILY 04/02/22 12/30/23 mcg (1,000 unit) tablet (Vitamin D3) Previous Rx's Medication Instructions Recorded hydrocodone 5 mg-acetaminophen 325 1 tab PO Q6H PRN Moderate Pain #12 07/08/22 mg tablet tabs clopidogrel 75 mg tablet 75 mg PO QAM #90 tabs 04/23/23 metoprolol succinate 25 mg See Rx Instructions .Route 07/05/23 tablet,extended release 24 hr .COMPLEX #90 tabs potassium chloride 20 mEq 20 meq PO DAILY #90 tabs 07/05/23 tablet,extended release(part/cryst) (Klor-Con M) furosemide 40 mg tablet (Lasix) 40 mg PO DAILY #90 tabs 09/13/23 lisinopril 2.5 mg tablet See Rx Instructions .Route 11/30/23 .COMPLEX #90 tabs Allergies Allergy/AdvReac Type Severity Reaction Status Date / Time Opioids - Morphine Analogues AdvReac Intermediate ADR-Nausea Verified 12/30/23 13:26 Review of Systems Const: Denies: fever(s), chills, body aches, fatigue or malaise Card: Reports: chest pain; Denies: edema, swelling of feet/ankles, syncope, pre-syncope, dyspnea on exertion, leg pain with exertion or acrocyanosis Resp: Denies: dyspnea GI: Denies: nausea or vomiting Neuro: Denies: headache(s) or dizziness Psych: Reports: anxiety; Denies: suicidal ideation or homicidal ideation PFSH ED PFSH: Medical History Tobacco use disorder Pleural effusion Acute exacerbation of CHF (congestive heart failure) Ischemic cardiomyopathy Orthopnea Dyspnea on exertion Hypoxia Acute hypoxemic respiratory failure Acute exacerbation of chronic obstructive airways disease STEMI (ST elevation myocardial infarction) Atherosclerosis of coronary artery Tobacco abuse Ovarian cyst Surgical History AICD (automatic cardioverter/defibrillator) present History of laparotomy H/O tubal ligation H/O: hysterectomy History of appendectomy Family History Other Congestive heart failure (CHF) Social History Smoking and tobacco/nicotine status: current every day tobacco/nicotine user cigarettes Packs smoked per day: 0.5 Alcohol intake: never Substance/Drug Use: current Substance/Drug use frequency: daily Lives independently: Yes Household members: significant other Marital status: Life Partner Current occupational status: disabled Physical Exam Const: COMMON NORMALS: no acute distress, patient oriented x3, no limitations, alert and well nourished GENERAL APPEARANCE: cooperative ORIENTATION/CONSCIOUSNESS: Yes awake, Yes oriented to person, Yes oriented to place and Yes oriented to time Neck/C-Spine: COMMON NORMALS: no JVD Chest: COMMONS NORMALS: normal inspection of the chest and normal palpation of entire chest wall Resp: COMMON NORMALS: normal respiratory effort and clear to auscultation bilaterally AUSCULTATION: clear to auscultation bilaterally Cardio: COMMON NORMALS: no JVD, regular rate and regular rhythm RATE: regular rate RHYTHM: regular rhythm Extremity: COMMON NORMALS: capillary refill normal, no clubbing, cyanosis or edema, no calf tenderness and no pedal edema GENERAL: Yes normal exam except as noted Neuro: COMMON NORMALS: patient oriented x3, moves all extremities, no focal motor deficits and no sensory deficits noted SENSORIUM/ORIENTATION: Yes alert, Yes oriented to person, Yes oriented to place and Yes oriented to time Skin: COMMON NORMALS: no rashes or lesions noted GENERAL SKIN EXAM: no rashes or lesions noted Course Vital Signs: Vital signs: Vital Signs Temperature 97.9 F 04/26/24 00:42 Pulse Rate 76 04/26/24 02:30 Respiratory Rate 18 04/26/24 02:30 Blood Pressure 120/74 04/26/24 02:30 Pulse Oximetry 100 04/26/24 02:30 Oxygen Delivery Me thod Room Air 04/26/24 02:30 MDM - Chest Pain Lab Data 04/26/24 01:10 04/26/24 01:10 Laboratory Results WBC 5.70 10^3/uL (3.29-11.43) 04/26/24 01:10 RBC 4.22 10^6/uL (3.85-5.65) 04/26/24 01:10 Hgb 13.20 g/dL (11.27-16.99) 04/26/24 01:10 Hct 41.0 % (36-47) 04/26/24 01:10 MCV 97.2 fl (85-98) 04/26/24 01:10 MCH 31.3 pg (27-33) 04/26/24 01:10 MCHC 32.2 g/dL (30-55) 04/26/24 01:10 RDW 13.9 % (12.1-15.1) 04/26/24 01:10 Plt Count 187 10^3/cmm (157-399) 04/26/24 01:10 MPV 10.0 fL (7.4-10.4) 04/26/24 01:10 Neut % (Auto) 71.2 % 04/26/24 01:10 Lymph % (Auto) 20.2 % 04/26/24 01:10 [place] % (Auto) 7.0 % 04/26/24 01:10 Eos % (Auto) 0.9 % 04/26/24 01:10 Baso % (Auto) 0.5 % 04/26/24 01:10 Neut # (Auto) 4.06 10^3/uL (1.8-7.7) 04/26/24 01:10 Lymph # (Auto) 1.2 10^3/uL (0.8-4.8) 04/26/24 01:10 [place] # (Auto) 0.4 10^3/uL (0.2-0.9) 04/26/24 01:10 Eos # (Auto) 0.1 10^3/uL (0.0-0.8) 04/26/24 01:10 Baso # (Auto) 0.0 10^3/uL (0.0-0.1) 04/26/24 01:10 Nucleated RBC % (auto) 0 % 04/26/24 01:10 Nucleated RBCs # 0.0 /100WBC 04/26/24 01:10 Sodium 141 mmol/L (136-145) 04/26/24 01:10 Potassium 4.0 mmol/L (3.5-5.1) 04/26/24 01:10 Chloride 103 mmol/L (98-107) 04/26/24 01:10 Carbon Dioxide 24 mmol/L (22-29) 04/26/24 01:10 Anion Gap 18.0 (5-19) 04/26/24 01:10 BUN 22 mg/dL (8-23) 04/26/24 01:10 Creatinine 1.0 mg/dL (0.5-0.9) H 04/26/24 01:10 GFR Calculation 56.6 mL/min (90-130) L 04/26/24 01:10 Glucose 101 mg/dL (65-115) 04/26/24 01:10 Calculated Osmolality 295 mOsm/kg (285-295) 04/26/24 01:10 Calcium 9.4 mg/dL (8.5-10.5) 04/26/24 01:10 Total Bilirubin 0.3 mg/dL (0.15-1.2) 04/26/24 01:10 AST 21 U/L (0-32) 04/26/24 01:10 ALT 17 U/L (0-33) 04/26/24 01:10 Alkaline Phosphatase 89 U/L (35-105) 04/26/24 01:10 Troponin T Baseline 21 ng/L (0-10) H 04/26/24 01:10 Troponin T 120 Minute 18.73 ng/L (0-10) H 04/26/24 03:05 Delta Troponin T -2.27 ABS# (0-10) L 04/26/24 03:05 Total Protein 7.2 g/dL (6.6-8.7) 04/26/24 01:10 Albumin 4.1 g/dL (3.5-5.2) 04/26/24 01:10 Globulin 3.1 g/dL (1.3-4.6) 04/26/24 01:10 Discharge Plan Discharge Patient Disposition: Home Clinical Impression: Chest pain Qualifiers: Chest pain type: unspecified Qualified Code(s): R07.9 - Chest pain, unspecified Condition: Stable Prescriptions: No Action clopidogrel 75 mg tablet 75 mg PO QAM Qty: 90 3RF potassium chloride [Klor-Con M20] 20 mEq tablet,ER particles/crystals 20 meq PO DAILY Qty: 90 3RF metoprolol succinate 25 mg tablet extended release 24 hr See Rx Instructions .ROUTE .COMPLEX Qty: 90 3RF Dose Instruction: TAKE 1/2 TABLET BY MOUTH TWICE DAILY Rx Instructions: TAKE 1/2 TABLET BY MOUTH TWICE DAILY furosemide [Lasix] 40 mg tablet 40 mg PO DAILY Qty: 90 3RF lisinopril 2.5 mg tablet See Rx Instructions .ROUTE .COMPLEX Qty: 90 0RF Dose Instruction: TAKE 1 TABLET BY MOUTH EVERY DAY Rx Instructions: TAKE 1 TABLET BY MOUTH EVERY DAY hydrocodone-acetaminophen 5-325 mg Tablet 1 tab PO Q6H PRN (Reason: Moderate Pain) Qty: 12 0RF ascorbic acid (vitamin C) [Vitamin C] 500 mg Tablet 500 mg PO DAILY cholecalciferol (vitamin D3) [Vitamin D3] 25 mcg (1,000 unit) Tablet 25 mcg PO DAILY aspirin 81 mg tablet,delayed release (DR/EC) 81 mg PO QAM Discharge Orders: Discharge ED (Routine); Ordered 04/26/24 Ordered By: Siva Mckeon Referrals: Nisa David RN [Primary Care Provider] - 1 week Patient Instructions: Chest Pain (ED) Activity Restrictions/Additional Instructions: Thank you for choosing [facility] for your healthcare needs today. Please realize that you were seen in the emergency department and that we are providing you with an emergency medical screening exam and this may not be a complete and all exclusive of all testing and/or medical workup we may need to determine your element or severity of your illness. It is very important that you follow-up as instructed with your primary care provider or specialist for the additional evaluation and to discuss your medical treatment plan. You may return to the emergency department should you have concerns or if your condition changes or worsens in any way. Coding Level of Care Code ED Strategy Associate for Chg Fwd Documented by User: Siva Mckeon DO 04/26/24 03:40 HPI - Chest Pain General: Chief Complaint: Chest Pain Stated Complaint: anxiety Time Seen by Provider: 04/26/24 00:42 Related Data Home Medications Medication Instructions Recorded Confirmed ascorbic acid (vitamin C) 500 mg 500 mg PO DAILY 04/02/22 12/30/23 tablet (Vitamin C) aspirin 81 mg tablet,delayed 81 mg PO QAM 04/02/22 12/30/23 release cholecalciferol (vitamin D3) 25 25 mcg PO DAILY 04/02/22 12/30/23 mcg (1,000 unit) tablet (Vitamin D3) Previous Rx's Medication Instructions Recorded hydrocodone 5 mg-acetaminophen 325 1 tab PO Q6H PRN Moderate Pain #12 07/08/22 mg tablet tabs clopidogrel 75 mg tablet 75 mg PO QAM #90 tabs 04/23/23 metoprolol succinate 25 mg See Rx Instructions .Route 07/05/23 tablet,extended release 24 hr .COMPLEX #90 tabs potassium chloride 20 mEq 20 meq PO DAILY #90 tabs 07/05/23 tablet,extended release(part/cryst) (Klor-Con M) furosemide 40 mg tablet (Lasix) 40 mg PO DAILY #90 tabs 09/13/23 lisinopril 2.5 mg tablet See Rx Instructions .Route 11/30/23 .COMPLEX #90 tabs Allergies Allergy/AdvReac Type Severity Reaction Status Date / Time Opioids - Morphine Analogues AdvReac Intermediate ADR-Nausea Verified 12/30/23 13:26 PFS ED PFSH: Medical History Tobacco use disorder Pleural effusion Acute exacerbation of CHF (congestive heart failure) Ischemic cardiomyopathy Orthopnea Dyspnea on exertion Hypoxia Acute hypoxemic respiratory failure Acute exacerbation of chronic obstructive airways disease STEMI (ST elevation myocardial infarction) Atherosclerosis of coronary artery Tobacco abuse Ovarian cyst Surgical History AICD (automatic cardioverter/defibrillator) present History of laparotomy H/O tubal ligation H/O: hysterectomy History of appendectomy Family History Other Congestive heart failure (CHF) Social History Smoking and tobacco/nicotine status: current every day tobacco/nicotine user cigarettes Packs smoked per day: 0.5 Alcohol intake: never Substance/Drug Use: current Substance/Drug use frequency: daily Lives independently: Yes Household members: significant other Marital status: Life Partner Current occupational status: disabled Course Vital Signs: Vital signs: Vital Signs Temperature 97.9 F 04/26/24 00:42 Pulse Rate 76 04/26/24 02:30 Respiratory Rate 18 04/26/24 02:30 Blood Pressure 120/74 04/26/24 02:30 Pulse Oximetry 100 04/26/24 02:30 Oxygen Delivery Me thod Room Air 04/26/24 02:30 MDM - Chest Pain Medical Decision Making Patient care transferred over to myself at shift change, waiting on lab work to come back, once lab come back patient still not having chest pain was discharged. Medical Records I reviewed the patient's medical records. Lab Data I reviewed the patient's lab results. 04/26/24 01:10 04/26/24 01:10 Laboratory Results WBC 5.70 10^3/uL (3.29-11.43) 04/26/24 01:10 RBC 4.22 10^6/uL (3.85-5.65) 04/26/24 01:10 Hgb 13.20 g/dL (11.27-16.99) 04/26/24 01:10 Hct 41.0 % (36-47) 04/26/24 01:10 MCV 97.2 fl (85-98) 04/26/24 01:10 MCH 31.3 pg (27-33) 04/26/24 01:10 MCHC 32.2 g/dL (30-55) 04/26/24 01:10 RDW 13.9 % (12.1-15.1) 04/26/24 01:10 Plt Count 187 10^3/cmm (157-399) 04/26/24 01:10 MPV 10.0 fL (7.4-10.4) 04/26/24 01:10 Neut % (Auto) 71.2 % 04/26/24 01:10 Lymph % (Auto) 20.2 % 04/26/24 01:10 [place] % (Auto) 7.0 % 04/26/24 01:10 Eos % (Auto) 0.9 % 04/26/24 01:10 Baso % (Auto) 0.5 % 04/26/24 01:10 Neut # (Auto) 4.06 10^3/uL (1.8-7.7) 04/26/24 01:10 Lymph # (Auto) 1.2 10^3/uL (0.8-4.8) 04/26/24 01:10 [place] # (Auto) 0.4 10^3/uL (0.2-0.9) 04/26/24 01:10 Eos # (Auto) 0.1 10^3/uL (0.0-0.8) 04/26/24 01:10 Baso # (Auto) 0.0 10^3/uL (0.0-0.1) 04/26/24 01:10 Nucleated RBC % (auto) 0 % 04/26/24 01:10 Nucleated RBCs # 0.0 /100WBC 04/26/24 01:10 Sodium 141 mmol/L (136-145) 04/26/24 01:10 Potassium 4.0 mmol/L (3.5-5.1) 04/26/24 01:10 Chloride 103 mmol/L (98-107) 04/26/24 01:10 Carbon Dioxide 24 mmol/L (22-29) 04/26/24 01:10 Anion Gap 18.0 (5-19) 04/26/24 01:10 BUN 22 mg/dL (8-23) 04/26/24 01:10 Creatinine 1.0 mg/dL (0.5-0.9) H 04/26/24 01:10 GFR Calculation 56.6 mL/min (90-130) L 04/26/24 01:10 Glucose 101 mg/dL (65-115) 04/26/24 01:10 Calculated Osmolality 295 mOsm/kg (285-295) 04/26/24 01:10 Calcium 9.4 mg/dL (8.5-10.5) 04/26/24 01:10 Total Bilirubin 0.3 mg/dL (0.15-1.2) 04/26/24 01:10 AST 21 U/L (0-32) 04/26/24 01:10 ALT 17 U/L (0-33) 04/26/24 01:10 Alkaline Phosphatase 89 U/L (35-105) 04/26/24 01:10 Troponin T Baseline 21 ng/L (0-10) H 04/26/24 01:10 Troponin T 120 Minute 18.73 ng/L (0-10) H 04/26/24 03:05 Delta Troponin T -2.27 ABS# (0-10) L 04/26/24 03:05 Total Protein 7.2 g/dL (6.6-8.7) 04/26/24 01:10 Albumin 4.1 g/dL (3.5-5.2) 04/26/24 01:10 Globulin 3.1 g/dL (1.3-4.6) 04/26/24 01:10 All radiology interpretation(s) finalized by discharge Discharge Plan Discharge Patient Disposition: Home Clinical Impression: Chest pain Qualifiers: Chest pain type: unspecified Qualified Code(s): R07.9 - Chest pain, unspecified Condition: Stable Prescriptions: No Action clopidogrel 75 mg tablet 75 mg PO QAM Qty: 90 3RF potassium chloride [Klor-Con M20] 20 mEq tablet,ER particles/crystals 20 meq PO DAILY Qty: 90 3RF metoprolol succinate 25 mg tablet extended release 24 hr See Rx Instructions .ROUTE .COMPLEX Qty: 90 3RF Dose Instruction: TAKE 1/2 TABLET BY MOUTH TWICE DAILY Rx Instructions: TAKE 1/2 TABLET BY MOUTH TWICE DAILY furosemide [Lasix] 40 mg tablet 40 mg PO DAILY Qty: 90 3RF lisinopril 2.5 mg tablet See Rx Instructions .ROUTE .COMPLEX Qty: 90 0RF Dose Instruction: TAKE 1 TABLET BY MOUTH EVERY DAY Rx Instructions: TAKE 1 TABLET BY MOUTH EVERY DAY hydrocodone-acetaminophen 5-325 mg Tablet 1 tab PO Q6H PRN (Reason: Moderate Pain) Qty: 12 0RF ascorbic acid (vitamin C) [Vitamin C] 500 mg Tablet 500 mg PO DAILY cholecalciferol (vitamin D3) [Vitamin D3] 25 mcg (1,000 unit) Tablet 25 mcg PO DAILY aspirin 81 mg tablet,delayed release (DR/EC) 81 mg PO QAM Discharge Orders: Discharge ED (Routine); Ordered 04/26/24 Ordered By: Siva Mckeon Referrals: Nisa David, MOSHE [Primary Care Provider] - 1 week Patient Instructions: Chest Pain (ED) Activity Restrictions/Additional Instructions: Thank you for choosing [facility] for your healthcare needs today. Please realize that you were seen in the emergency department and that we are providing you with an emergency medical screening exam and this may not be a complete and all exclusive of all testing and/or medical workup we may need to determine your element or severity of your illness. It is very important that you follow-up as instructed with your primary care provider or specialist for the additional evaluation and to discuss your medical treatment plan. You may return to the emergency department should you have concerns or if your condition changes or worsens in any way. Coding Level of Care Code ED Strategy Associate for Liseth Fung
--- NOTE | 2024-04-26 00:55 | ECG_ITS ---
[facility] Test Date: 2024-04-26 Pat Name: Melissa Benoit Department: Room: Gender: Female Reed Man: : 1965 Requested By: Sarah Blake Order Number: [id number] Basil MD: Denver Magdaleno M.D. Measurements Intervals [place] Rate: 80 P: 63 HI: 170 QRS: -28 QRSD: 133 T: 108 QT: 385 QTc: 445 Interpretive Statements SINUS RHYTHM INTRAVENTRICULAR CONDUCTION DELAY [130+ ms QRS DURATION] SEPTAL MYOCARDIAL INFARCTION , OF INDETERMINATE AGE [40+ ms Q WAVE IN V1/V2] Compared to ECG 05/10/2022 09:41:23 Intraventricular conduction delay now present Incomplete right bundle-branch block no longer present Left anterior fascicular block no longer present Myocardial infarct finding still present Electronically Signed On 04-27-2024 12:31:33 OIL FIELD OPERATOR by Denver Magdaleno M.D. [id number]
--- NOTE | 2024-04-26 00:55 | XRR_ITS ---
PROCEDURE INFORMATION: Exam: XR Chest Exam date and time: 04/26/2024 1:23 AM Age: 58 years old Clinical indication: Pain; Chest pressure; Prior surgery; Surgery date: 6+ months; Surgery type: Pacemaker; Additional info: Chest pain TECHNIQUE: Imaging protocol: Radiologic exam of the chest. Views: 1 view. COMPARISON: CR XR chest 1V portable [id number] 07/07/2022 7:53 AM FINDINGS: Tubes, catheters and devices: Single lead AICD device is noted on the left. Lungs: Lungs are hyperinflated. No consolidation is appreciated. Pleural spaces: Unremarkable. No pleural effusion. No pneumothorax. Heart/Mediastinum: The heart is borderline enlarged. Bones/joints: Unremarkable. XR/XR chest 1V portable [id number] IMPRESSION: 1. Lung hyperinflation.
[2024-04-26 01:14] LABS: Basophils % 0.5 %; Eosinophils # 0.1 10^3/uL (0.0-0.8); Eosinophils % 0.9 %; Lymphocytes # 1.2 10^3/uL (0.8-4.8); Lymphocytes % 20.2 %; Mean Corpuscular HGB Conc 32.2 g/dL (30-55); Mean Corpuscular Hemoglobin 31.3 pg (27-33); Mean Corpuscular Volume 97.2 fl (85-98); Monocytes # 0.4 10^3/uL (0.2-0.9); Neutrophils # 4.06 10^3/uL (1.8-7.7); Neutrophils % 71.2 %; Nucleated Red Blood Cells % 0 %; Platelet Count 187 10^3/cmm (157-399); Red Blood Count 4.22 10^6/uL (3.85-5.65); Red Cell Distribution Width 13.9 % (12.1-15.1)
[2024-04-26 01:21] VITALS: BP 124/81; PULSE 79; RESP 16; O2SAT 96
[2024-04-26 01:34] LABS: Troponin(5th) Baseline 21 ng/L (0-10)
[2024-04-26 01:36] LABS: Alanine Aminotransferase 17 U/L (0-33); Albumin Level 4.1 g/dL (3.5-5.2); Alkaline Phosphatase 89 U/L (35-105); Aspartate Amino Transferase 21 U/L (0-32); Blood Urea Nitrogen 22 mg/dL (8-23); Calcium 9.4 mg/dL (8.5-10.5); Carbon Dioxide 24 mmol/L (22-29); Chloride 103 mmol/L (98-107); Creatinine Clr Calc Pharmacy 52.4163; Globulin 3.1 g/dL (1.3-4.6); Glomerular Filtration Rate 56.6 mL/min (90-130); Glucose 101 mg/dL (65-115); Osmolality Calculated 295 mOsm/kg (285-295); Sodium 141 mmol/L (136-145); Total Bilirubin 0.3 mg/dL (0.15-1.2); Total Protein 7.2 g/dL (6.6-8.7)
[2024-04-26 02:00] VITALS: BP 125/82; PULSE 85; RESP 21; O2SAT 96
[2024-04-26 02:30] VITALS: BP 120/74; PULSE 76; RESP 18; O2SAT 100
--- NOTE | 2024-04-26 02:55 | ECG_ITS ---
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 Measurements Intervals [employer] Rate: 73 P: 65 DC: 178 QRS: -19 QRSD: 133 T: 111 QT: 409 QTc: 451 Interpretive Statements SINUS RHYTHM INTRAVENTRICULAR CONDUCTION DELAY [130+ ms QRS DURATION] SEPTAL MYOCARDIAL INFARCTION , OF INDETERMINATE AGE [40+ ms Q WAVE IN V1/V2] Compared to ECG 05/10/2022 09:41:23 Intraventricular conduction delay now present Incomplete right bundle-branch block no longer present Left anterior fascicular block no longer present Myocardial infarct finding still present Electronically Signed On 04-27-2024 12:36:02 COMPONENT ASSEMBLER SUPERVISOR by Denver Magdaleno M.D. [email or web address]
[2024-04-26 03:34] LABS: Troponin 5 2HR 18.73 ng/L (0-10)
[2024-04-26 03:35] LABS: Troponin 5 2HR Delta -2.27 ABS# (0-10)
== END 2024-04-26 03:43 | disposition home or self-care (01) ==
PROVIDERS: Emergency Provider Physician Assistant
DX: R07.9 Chest pain, unspecified (principal); Z79.02 Long term (current) use of antithrombotics/antiplatelets; Z79.82 Long term (current) use of aspirin; F17.210 Nicotine dependence, cigarettes, uncomplicated; I25.10 Atherosclerotic heart disease of native coronary artery without angina pectoris; I50.9 Heart failure, unspecified; Z95.810 Presence of automatic (implantable) cardiac defibrillator
CPT/HCPCS: 36415; 71045; 80053; 84484; 85025; 93005; 93010; 99285

== ENCOUNTER 2024-06-07 20:29 | Emergency (ER) | payer MEDICAID, SELFPAY ==
[2024-06-07 20:32] VITALS: BP 126/80; PULSE 78; RESP 18; TEMP 36.8; O2SAT 100; BMI 21.4
--- NOTE | 2024-06-07 20:34 | XRR_ITS ---
PROCEDURE INFORMATION: Exam: XR Chest Exam date and time: 06/07/2024 9:00 PM Age: 59 years old Clinical indication: Shortness of breath TECHNIQUE: Imaging protocol: Radiologic exam of the chest. Views: 1 view. COMPARISON: CR (CHEST, ) 04/26/2024 1:23 AM FINDINGS: Tubes, catheters and devices: Single lead pacemaker on the left. Lungs: Hyperinflated lungs suggestive of COPD/emphysematous change, as noted with prior exam. Minimal benign healed granulomatous disease. No infiltrate or consolidation. No significant pulmonary vascular congestion/edema. Pleural spaces: No pleural effusion or pneumothorax. Heart/Mediastinum: Borderline cardiac size. Bones/joints: Visualized osseous structures show no acute abnormality. Other findings: No significant change with prior exam. XR/XR chest 1V portable [id number] IMPRESSION: Hyperinflated lungs suggestive of COPD/emphysematous change, for clinical correlation. Single lead pacemaker on the left. Borderline cardiac size. No acute findings or significant change from previous exam.
--- NOTE | 2024-06-07 20:34 | CTR_ITS ---
PROCEDURE INFORMATION: Exam: CT Cervical Spine Without Contrast Exam date and time: 06/07/2024 9:41 PM Age: 59 years old Clinical indication: Injury or trauma; Fall; Blunt trauma; Additional info: Fall, neck pain TECHNIQUE: Imaging protocol: Computed tomography of the cervical spine without contrast. Radiation optimization: All CT scans at this facility use at least one of these dose optimization techniques: automated exposure control; mA and/or kV adjustment per patient size (includes targeted exams where dose is matched to clinical indication); or iterative reconstruction. COMPARISON: CT head wo con* [id number] 06/07/2024 9:41 PM RADIATION DOSE METRICS: Total DLP (mGy-cm): 136.5 FINDINGS: Bones: Cervical vertebral body heights appear maintained, as does alignment. Yeov-eg-bqjoufwm disc space narrowing or degenerative disc disease noted C5-C6, along with mild marginal osteophyte formation posteriorly. Mild spondylotic change otherwise. No fracture or subluxation is seen. No significant or severe spinal stenosis. Mild anterior encroachment with mild narrowing of the spinal canal C5-C6. Bilateral neural foraminal narrowing C5-C6 and fbzg-ewodxip-uesj-right neural foraminal narrowing C6-C7. Lungs: Lung apices are not visualized to evaluate. Soft tissues: Paravertebral soft tissues appear unremarkable. CT/CT cervical spin wo con* [id number] IMPRESSION: Spondylotic change, more prominent C5-C6 and C6-C7 levels, along with dcfv-cf-[id number] degenerative disc disease C5-C6. No fracture or subluxation.
--- NOTE | 2024-06-07 20:34 | CTR_ITS ---
PROCEDURE INFORMATION: Exam: CT Head Without Contrast Exam date and time: 06/07/2024 9:41 PM Age: 59 years old Clinical indication: Injury or trauma; Fall; Blunt trauma (contusions or hematomas); With loss of consciousness; Not specified; Additional info: Fall, head injury TECHNIQUE: Imaging protocol: Computed tomography of the head without contrast. Radiation optimization: All CT scans at this facility use at least one of these dose optimization techniques: automated exposure control; mA and/or kV adjustment per patient size (includes targeted exams where dose is matched to clinical indication); or iterative reconstruction. COMPARISON: CT cervical spin wo con* [id number] 06/07/2024 9:41 PM RADIATION DOSE METRICS: Total DLP (mGy-cm): 998.4 FINDINGS: Brain: No intracranial hemorrhage or hematoma is seen. No mass effect or shift of midline structures. No findings to indicate territorial or large vessel ischemic infarct or other focal findings. Mild periventricular subcortical low attenuation, particularly in the frontal region, likely chronic small-vessel disease change. Cerebral ventricles: No significant ventriculomegaly. Paranasal sinuses: Visualized sinuses are unremarkable. No fluid levels. Mastoid air cells: Visualized mastoid air cells are well aerated. Bones: Bone windows of the skull show no acute abnormality. Soft tissues: Unremarkable. CT/CT head wo con* [id number] IMPRESSION: No acute intracranial abnormality. No hemorrhage or mass effect.
[2024-06-07 20:42] VITALS: BP 119/77; PULSE 80; O2SAT 100
[2024-06-07 20:43] LABS: Basophils # 0.1 10^3/uL (0.0-0.1); Basophils % 0.7 %; Eosinophils % 0.6 %; Lymphocytes # 1.8 10^3/uL (0.8-4.8); Lymphocytes % 26.1 %; Mean Corpuscular Hemoglobin 31.8 pg (27-33); Mean Corpuscular Volume 96.4 fl (85-98); Monocytes # 0.6 10^3/uL (0.2-0.9); Monocytes % 8.5 %; Neutrophils # 4.37 10^3/uL (1.8-7.7); Neutrophils % 63.8 %; Nucleated Red Blood Cells % 0 %; Platelet Count 203 10^3/cmm (157-399); Red Blood Count 4.15 10^6/uL (3.85-5.65); Red Cell Distribution Width 13.3 % (12.1-15.1); White Blood Count 6.85 10^3/uL (3.29-11.43)
--- NOTE | 2024-06-07 20:47 | W.ED.SYNCOPE ---
HPI - Syncope General: Chief Complaint: Syncope Stated Complaint: syncope Time Seen by Provider: 06/07/24 20:30 History of Present Illness: 59-year-old female with a history of tobacco dependence, COPD, chronic hypoxemic respiratory failure on 2 L nasal cannula at all times, coronary artery disease, ischemic cardiomyopathy with AICD placement and anxiety who presents to the emergency room by ambulance after having a syncopal episode. She says she woke up on the ground. found her and she woke up after being out for maybe a couple of minutes. She says she thinks she remembers having some chest pain prior to the event. She has an abrasion on her forehead. She has some mild neck pain. Currently chest pain-free. She says she has not been feeling great over the last day. Some cough and shortness of breath. No edema. At this time no altered mental status. No focal motor deficits. Related Data Home Medications ?Medication ?Instructions ?Recorded ?Confirmed ascorbic acid (vitamin C) 500 mg 500 mg PO DAILY 04/02/22 12/30/23 tablet (Vitamin C) aspirin 81 mg tablet,delayed 81 mg PO QAM 04/02/22 12/30/23 release cholecalciferol (vitamin D3) 25 25 mcg PO DAILY 04/02/22 12/30/23 mcg (1,000 unit) tablet (Vitamin D3) Previous Rx's ?Medication ?Instructions ?Recorded hydrocodone 5 mg-acetaminophen 325 1 tab PO Q6H PRN Moderate Pain #12 07/08/22 mg tablet tabs metoprolol succinate 25 mg See Rx Instructions .Route 07/05/23 tablet,extended release 24 hr .COMPLEX #90 tabs potassium chloride 20 mEq 20 meq PO DAILY #90 tabs 07/05/23 tablet,extended release(part/cryst) (Klor-Con M) furosemide 40 mg tablet (Lasix) 40 mg PO DAILY #90 tabs 09/13/23 clopidogrel 75 mg tablet 75 mg PO QAM #90 tabs 05/08/24 lisinopril 2.5 mg tablet See Rx Instructions .Route 05/18/24 .COMPLEX #90 tabs Allergies Allergy/AdvReac Type Severity Reaction Status Date / Time Opioids - Morphine Analogues AdvReac Intermediate ADR-Nausea Verified 12/30/23 13:26 Review of Systems Narrative: Constitutional symptoms: Negative except as documented in HPI. Skin symptoms: Negative except as documented in HPI. Eye symptoms: Negative except as documented in HPI. ENMT symptoms: Negative except as documented in HPI. Respiratory symptoms: Negative except as documented in HPI. Cardiovascular symptoms: Negative except as documented in HPI. Gastrointestinal symptoms: Negative except as documented in HPI. Genitourinary symptoms: Negative except as documented in HPI. Musculoskeletal symptoms: Negative except as documented in HPI. Neurologic symptoms: Negative except as documented in HPI. Psychiatric symptoms: Negative except as documented in HPI. Endocrine symptoms: Negative except as documented in HPI. PFSH ED PFSH: Medical History Tobacco use disorder Pleural effusion Acute exacerbation of CHF (congestive heart failure) Ischemic cardiomyopathy Orthopnea Dyspnea on exertion Hypoxia Acute hypoxemic respiratory failure Acute exacerbation of chronic obstructive airways disease STEMI (ST elevation myocardial infarction) Atherosclerosis of coronary artery Tobacco abuse Ovarian cyst Surgical History AICD (automatic cardioverter/defibrillator) present History of laparotomy H/O tubal ligation H/O: hysterectomy History of appendectomy Family History Other Congestive heart failure (CHF) Social History Smoking and tobacco/nicotine status: current every day tobacco/nicotine user cigarettes Packs smoked per day: 0.5 Alcohol intake: never Substance/Drug Use: current Substance/Drug use frequency: daily Lives independently: Yes Household members: significant other Marital status: Life Partner Current occupational status: disabled Physical Exam Narrative: EXAM NARRATIVE: General: Alert, no acute distress. Skin: Warm, dry. Head: Normocephalic, atraumatic. Neck: Supple, trachea midline. Eye: Extraocular movements are intact. Ears, nose, mouth and throat: Oral mucosa moist. Cardiovascular: Regular rate and rhythm, Normal peripheral perfusion. Respiratory: some expiratory wheeze, mild increased wob, breath sounds are equal, Symmetrical chest wall expansion. Gastrointestinal: Soft, Nontender, Non distended, Normal bowel sounds. Musculoskeletal: Normal ROM, no deformity. Neurological: Alert and oriented to person, place, time, and situation, No focal neurological deficit observed. Psychiatric: Cooperative, appropriate mood & affect. Course Vital Signs: Vital signs: Vital Signs Temperature 98.2 F 06/07/24 20:32 Pulse Rate 69 06/07/24 22:00 Respiratory Rate 18 06/07/24 20:32 Blood Pressure 120/76 06/07/24 22:00 Pulse Oximetry 100 06/07/24 22:00 Oxygen Delivery Me thod Nasal Cannula 06/07/24 22:00 Oxygen Flow Rate 2 06/07/24 22:00 MDM - Syncope Medical Decision Making Medical decision making: Differential diagnosis including but not limited to and based on the above HPI, review of systems and physical exam in this patient with syncope: Vasovagal, orthostatics hypotension, cardiac dysrhythmia, myocardial infarction, infection and hypotension, Orders placed to evaluate differential diagnosis based on the above differential, HPI and physical exam EKG: Time 2034. Rate 75. Normal sinus rhythm, No ST-T changes, no ectopy, normal CA & QRS intervals, This was reviewed and interpreted by myself the ER physician at 2039 Chest x-ray: No acute process. No infiltrate. No pneumothorax. This was reviewed and interpreted by myself the emergency room physician. I also reviewed the radiology report. AICD is in place. Lab Review: Laboratory results were reviewed and interpreted by myself the emergency room physician. No leukocytosis. No anemia. Renal function is slightly above her baseline at 27 and 1.1. Troponin was 20 initially. Unchanged on repeat. Consultation: AICD was interrogated. She has had no episodes of V. tach V-fib or other dysrhythmias that might have resulted in syncope. CT head: No acute intracranial process. no intracranial hemorrhage, no evidence of infarct. no evidence of acute fracture.This was reviewed and interpreted by myself the ER physician. CT of the cervical spine: No fracture. Good alignment. No step-offs. This was reviewed and interpreted by myself the emergency room physician. I also reviewed the radiologist report. I reviewed the patient's medical record. Reexamination: Patient remained stable. No increased work of breathing. No altered mental status. No focal motor deficits. Assessment and plan: Syncope Head injury - Discharged home - Discussed plan with patient. Answered any questions. - Evaluation and treatment of this problem were appropriate in the emergency setting. Lab Data 06/07/24 19:19 06/07/24 19:19 Radiology Impressions Cervical Spine CT 06/07/24 20:34 IMPRESSION: Spondylotic change, more prominent C5-C6 and C6-C7 levels, along with [id number] degenerative disc disease C5-C6. No fracture or subluxation. Chest X-Ray 06/07/24: IMPRESSION: Hyperinflated lungs suggestive of COPD/emphysematous change, for clinical correlation. Single lead pacemaker on the left. Borderline cardiac size. No acute findings or significant change from previous exam. Head CT 06/07/24: IMPRESSION: No acute intracranial abnormality. No hemorrhage or mass effect. Laboratory Results WBC 6.85 10^3/uL (3.29-11.43) 06/07/24 19:19 RBC 4.15 10^6/uL (3.85-5.65) 06/07/24 19:19 Hgb 13.20 g/dL (11.27-16.99) 06/07/24 19:19 Hct 40.0 % (36-47) 06/07/24 19:19 MCV 96.4 fl (85-98) 06/07/24 19:19 MCH 31.8 pg (27-33) 06/07/24 19:19 MCHC 33.0 g/dL (30-55) 06/07/24 19:19 RDW 13.3 % (12.1-15.1) 06/07/24 19:19 Plt Count 203 10^3/cmm (157-399) 06/07/24 19:19 MPV 11.0 fL (7.4-10.4) H 06/07/24 19:19 Neut % (Auto) 63.8 % 06/07/24 19:19 Lymph % (Auto) 26.1 % 06/07/24 19:19 [place] % (Auto) 8.5 % 06/07/24 19:19 Eos % (Auto) 0.6 % 06/07/24 19:19 Baso % (Auto) 0.7 % 06/07/24 19:19 Neut # (Auto) 4.37 10^3/uL (1.8-7.7) 06/07/24 19:19 Lymph # (Auto) 1.8 10^3/uL (0.8-4.8) 06/07/24 19:19 [place] # (Auto) 0.6 10^3/uL (0.2-0.9) 06/07/24 19:19 Eos # (Auto) 0.0 10^3/uL (0.0-0.8) 06/07/24 19:19 Baso # (Auto) 0.1 10^3/uL (0.0-0.1) 06/07/24 19:19 Nucleated RBC % (auto) 0 % 06/07/24 19:19 Nucleated RBCs # 0.0 /100WBC 06/07/24 19:19 Sodium 137 mmol/L (136-145) 06/07/24 19:19 Potassium 4.6 mmol/L (3.5-5.1) 06/07/24 19:19 Chloride 100 mmol/L (98-107) 06/07/24 19:19 Carbon Dioxide 23 mmol/L (22-29) 06/07/24 19:19 Anion Gap 18.6 (5-19) 06/07/24 19:19 BUN 27 mg/dL (8-23) H 06/07/24 19:19 Creatinine 1.1 mg/dL (0.5-0.9) H 06/07/24 19:19 GFR Calculation 50.5 mL/min (90-130) L 06/07/24 19:19 Glucose 85 mg/dL (65-115) 06/07/24 19:19 Calculated Osmolality 288 mOsm/kg (285-295) 06/07/24 19:19 Lactic Acid 1.0 mmol/L (0.5-2.2) 06/07/24 19:19 Calcium 9.4 mg/dL (8.5-10.5) 06/07/24 19:19 Total Bilirubin 0.2 mg/dL (0.15-1.2) 06/07/24 19:19 AST 29 U/L (0-32) 06/07/24 19:19 ALT 16 U/L (0-33) 06/07/24 19:19 Alkaline Phosphatase 94 U/L (35-105) 06/07/24 19:19 Troponin T Baseline 17 ng/L (0-10) H 06/07/24 19:19 Troponin T 120 Minute 16.28 ng/L (0-10) H 06/07/24 21:23 Delta Troponin T -0.72 ABS# (0-10) L 06/07/24 21:23 C-Reactive Protein 3.0 mg/L (0.0-4.9) 06/07/24 19:19 Total Protein 6.9 g/dL (6.6-8.7) 06/07/24 19:19 Albumin 4.1 g/dL (3.5-5.2) 06/07/24 19:19 Globulin 2.8 g/dL (1.3-4.6) 06/07/24 19:19 Coronavirus (PCR) Negative (Negative) 06/07/24 20:39 Influenza A (PCR) Negative (Negative) 06/07/24 20:39 Influenza Type B (PCR) Negative (Negative) 06/07/24 20:39 RSV (PCR) Negative (Negative) 06/07/24 20:39 All radiology interpretation(s) finalized by discharge Discharge Plan Discharge Patient Disposition: Home Clinical Impression: Syncope, Head injury Condition: Stable Prescriptions: No Action potassium chloride [Klor-Con M20] 20 mEq tablet,ER particles/crystals 20 meq PO DAILY Qty: 90 3RF metoprolol succinate 25 mg tablet extended release 24 hr See Rx Instructions .ROUTE .COMPLEX Qty: 90 3RF Dose Instruction: TAKE 1/2 TABLET BY MOUTH TWICE DAILY Rx Instructions: TAKE 1/2 TABLET BY MOUTH TWICE DAILY furosemide [Lasix] 40 mg tablet 40 mg PO DAILY Qty: 90 3RF clopidogrel 75 mg tablet 75 mg PO QAM Qty: 90 3RF lisinopril 2.5 mg tablet See Rx Instructions .ROUTE .COMPLEX Qty: 90 3RF Dose Instruction: TAKE 1 TABLET BY MOUTH EVERY DAY Rx Instructions: TAKE 1 TABLET BY MOUTH EVERY DAY hydrocodone-acetaminophen 5-325 mg Tablet 1 tab PO Q6H PRN (Reason: Moderate Pain) Qty: 12 0RF ascorbic acid (vitamin C) [Vitamin C] 500 mg Tablet 500 mg PO DAILY cholecalciferol (vitamin D3) [Vitamin D3] 25 mcg (1,000 unit) Tablet 25 mcg PO DAILY aspirin 81 mg tablet,delayed release (DR/EC) 81 mg PO QAM Discharge Orders: Discharge ED (Routine); Ordered 06/07/24 Ordered By: Cherelle Lugo Referrals: Nisa David RN [Primary Care Provider] - Discharge Diet: Usual diet Discharge Activity: Increase activity as tolerated Patient Instructions: Syncope (ED), Opioid Safety, Pain Management Activity Restrictions/Additional Instructions: [facility]. Please realize this is an emergency room and that we are providing you with a medical screening exam and this may not be complete and all inclusive of all the testing and or work up that you may need to determine your ailment or severity of your illness. You have been screened and evaluated and felt safe for discharge. Health conditions do change or evolve sometimes and as such it is important that you follow up with your Primary Doctor to be re checked, 3-5 days is a general good time frame for follow up. You are always welcome to return to the ED for re assessment if your symptoms are worsening or you have new concerns Print Language: Chinese Coding Level of Care Code ED Honeycomb Decapper for Liseth Fung
[2024-06-07 21:03] LABS: Alanine Aminotransferase 16 U/L (0-33); Albumin Level 4.1 g/dL (3.5-5.2); Alkaline Phosphatase 94 U/L (35-105); Aspartate Amino Transferase 29 U/L (0-32); Blood Urea Nitrogen 27 mg/dL (8-23); Calcium 9.4 mg/dL (8.5-10.5); Carbon Dioxide 23 mmol/L (22-29); Chloride 100 mmol/L (98-107); Creatinine Clr Calc Pharmacy 47.0555; Globulin 2.8 g/dL (1.3-4.6); Glomerular Filtration Rate 50.5 mL/min (90-130); Glucose 85 mg/dL (65-115); Osmolality Calculated 288 mOsm/kg (285-295); Sodium 137 mmol/L (136-145); Total Bilirubin 0.2 mg/dL (0.15-1.2); Total Protein 6.9 g/dL (6.6-8.7); Troponin(5th) Baseline 17 ng/L (0-10)
[2024-06-07 21:08] LABS: Anion Gap 18.6 (5-19); Potassium 4.6 mmol/L (3.5-5.1)
[2024-06-07 21:12] VITALS: PULSE 79; O2SAT 100
[2024-06-07 21:27] LABS: Covid PCR NEGATIVE (Negative); Influenza A NEGATIVE (Negative); Influenza B NEGATIVE (Negative); Respiratory Syncytial Virus Ce NEGATIVE (Negative)
[2024-06-07 21:42] VITALS: BP 119/77; PULSE 74; O2SAT 100
[2024-06-07 21:59] LABS: Troponin 5 2HR 16.28 ng/L (0-10)
[2024-06-07 22:00] VITALS: BP 120/76; PULSE 69; O2SAT 100
[2024-06-07 22:03] LABS: Troponin 5 2HR Delta -0.72 ABS# (0-10)
[2024-06-07 22:30] VITALS: BP 120/76; PULSE 72; O2SAT 100
--- NOTE | 2024-06-07 22:34 | ECG_ITS ---
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
[2024-06-07 22:36] LABS: Bilirubin Urine Negative (Negative); Blood Urine Trace (Negative); Glucose Urine UA Negative (Normal); Ketones Urine Negative (Negative); Leukocyte Esterase Urine 2+ (Negative); Nitrate Urine Positive (Negative); Protein Urine 1+ (Negative); Specific Gravity, Urine 1.022 (1.005-1.030); Urine Appearance Cloudy (CLEAR); Urine Color Yellow (Yellow)
[2024-06-07 22:41] LABS: Bacteria Urine 4+ /hpf; RBC Urine 0-2 /hpf (0-2); Squamous Epithelial Cell Urine 0-5 /hpf (0-5); WBC Urine >100 /hpf (0-5)
[2024-06-07 22:45] LABS: Add Urine Culture? Yes
== END 2024-06-07 22:31 | disposition home or self-care (01) ==
PROVIDERS: Emergency Provider Emergency Medicine
DX: R55 Syncope and collapse (principal); S09.90XA Unspecified injury of head, initial encounter; W19.XXXA Unspecified fall, initial encounter; Z79.82 Long term (current) use of aspirin; Z11.52 Encounter for screening for COVID-19; F17.210 Nicotine dependence, cigarettes, uncomplicated; I50.9 Heart failure, unspecified; J44.9 Chronic obstructive pulmonary disease, unspecified
CPT/HCPCS: 36415; 70450; 71045; 72125; 80053; 81001; 83605; 84484; 85025; 86140; 87040; 87086; 87637; 93005; 99285

== ENCOUNTER → 2024-07-13 13:37 | Outpatient (BNVA) | payer MEDICAID, SELFPAY | PROVIDERS: Visit Provider Internal Medicine | DX: I25.119 Atherosclerotic heart disease of native coronary artery with unspecified angina pectoris (principal); I50.9 Heart failure, unspecified; Z72.0 Tobacco use | CPT/HCPCS: 99214 ==

== ENCOUNTER → 2025-01-18 15:19 | Outpatient (BNVA) | payer MEDICAID, SELFPAY | PROVIDERS: Visit Provider Internal Medicine | DX: I25.10 Atherosclerotic heart disease of native coronary artery without angina pectoris (principal); I50.9 Heart failure, unspecified; Z72.0 Tobacco use; Z95.810 Presence of automatic (implantable) cardiac defibrillator; I25.2 Old myocardial infarction | CPT/HCPCS: 99213 ==